=== PATIENT | male | born 1945 | race Caucasian/White ===

== ENCOUNTER → 2017-01-25 | Outpatient (CLI) | payer MEDICARE, OTHER ==
[~2017-01-25] MED LIST: ASP81TEC PO; ATOR20TA66 PO; CATHETER FLUSH 10 ML SYR IV PRN; IOHEXOL 350 MG/ML 150 ML (OMNIPAQUE 350) VIAL IV ONE; MTP25TSR PO; MULT-974 PO; NS 100 ML (IVPB) BAG IV ONE; OMEG-70 PO; ROSU10TA PO
--- OUTSIDE RECORDS SUMMARY | 2017-01-25 08:21 | XMS REPORT | Continuity of Care Document ---
Author Author [facility] Organization [facility] Address Unknown Phone Unavailable Care Team Providers Care Office Machinery Or Equipment Installer Name Role Phone Kailyn Melchor PCP [phone] Source Comments Some departments are not documenting in the electronic medical record. If you do not see the information that you expected, contact Release of Information in the Health Information Management department at [phone] for further assistance in locating additional records.[facility] Active Allergies and Adverse Reactions No Known Allergies Current Medications Prescription Sig. Disp. Refills Start End Date Status Date atorvastatin (LIPITOR) 40 Take 40 mg by mouth at Active mg tablet bedtime daily. metoprolol XL (TOPROL XL) Take 25 mg by mouth Active 25 mg extended release daily. tablet DOCOSAHEXANOIC ACID/EPA Take 1 Tab by mouth at Active (FISH OIL PO) bedtime daily. aspirin 81 mg chewable Take 81 mg by mouth Active tablet daily. Take with food. vitamins, multiple tablet Take 1 Tab by mouth Active daily. oxyCODONE/acetaminophen Take 1-2 Tabs by mouth 20 Tab 0 07/06/20 Active (PERCOCET; ENDOCET; every 4 hours as needed 16 ROXICET) 5/325 mg tablet for Pain Earliest Fill Date: 07/06/16 Use as needed for severe pain hyoscyamine (ANASPAZ; Place 1 Tab under tongue 30 Tab 0 07/06/20 Active NULEV; SYMAX FASTABS; every 4 hours as needed 16 HYOMAX-FT; ED-SPAZ; (bladder spasms). Use as OSCIMIN) 0.125 mg rapid needed for bladder spasms dissolve tablet polymyxin/bacitracin/barron/ Take tube in your room 07/06/20 Active HC (CORTISPORIN) 1 % home with you. Apply to 16 topical ointment tip of penis to keep catheter lubricated Active Problems Problem Noted Date Prostate cancer (HCC) 06/05/2016 Overview: HPI: 70 y.o.M hx of CAD s/p CABG that presents w/ new diagnosis of prostate cancer. Pertinent Prostate Cancer Hx as follows: - PSA 8.0 in March/2016 - PNBx on 04/04/16 demonstrated [place] 3+3 prostate cancer in 3/12 cores (60%, 10%, 5%); Dr. Lu - Bone scan/CT both negative for metastatic disease - No family hx of prostate cancer L ast Assessment & Plan: 70 y.o.M w/ new diagnosis of prostate cancer. I had detailed discussion with the patient today regarding natural history of prostate cancer, parameters in disease considerations. I reviewed the following treatment options: 1. Active surveillance 2. Radical prostatectomy 3. Radiation therapy 4. Cryotherapy 5. Androgen deprivation I discussed the risks, benefits, alternatives, logistics, relative merits, advantages and disadvantages and treatment options with him in detail. The patient has elected to proceed with RALP with BNS on 07/05. Possible risks & complications of surgery including but not limited to bleeding, infection, allergic reaction, heart & blood pressure problems, incontinence, erectile dysfunction, bladder neck contracture, urine leak, lymphocele, hernias, anastomotic breakdown, need for percutaneous nephrostomy tube and/ or abdominal drain placement, wound complications, nerve injury due to positioning, injury to nearby contiguous organs or structures, hernias, robot malfunction, conversion to open surgery, and additional surgical risks include, but not limited to DVT, heart attack, stroke, pulmonary embolism, respiratory arrest, & . Pt demonstrates an understanding & wishes to proceed. Surgical consent signed in clinic today. Pre-op instructions provided to pt & will be addressed by Pre-Anesthesia Clinic. Bowel prep instructions specifically reviewed w/ pt by the nurse, printed & highlighted on AVS. AVS given to pt. Consults: Cardiology All questions answered to his satisfaction. 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" Alcohol Use Drinks/Week oz/Week Comments Yes 1 Cans of 0.6 beer Last Filed Vital Signs Vital Sign Reading Time Taken Blood Pressure 98/50 07/06/2016 11:19 AM CDT Pulse 56 07/06/2016 11:19 AM CDT Temperature 36.5 C (97.7 F) 07/06/2016 11:19 AM CDT Respiratory Rate - - Height 1.753 m (5' 9.02") 07/05/2016 6:00 AM CDT Weight 85.9 kg (189 lb 6 oz) 07/05/2016 6:00 AM CDT Body Mass Index 27.95 07/05/2016 6:00 AM CDT Oxygen Saturation 92% 07/06/2016 11:19 AM CDT Plan of Care Health Maintenance Due Date Last Done Comments Physical (Comprehensive) 1952 Exam Pertussis Vaccine 1955 Tetanus Vaccine 1961 Colorectal Cancer 1994 Screening Shingles Vaccine 2004 Prevnar/Pneumovax (#1) 2009 Influenza Vaccine 07/12/2016 Results from Last 3 Months Not on file
[2017-01-25 08:48] LABS: CREATININE SERUM 1.23 MG/DL (0.60-1.30); POTASSIUM 4.3 MMOL/L (3.6-5.0)
--- NOTE | 2017-01-25 11:41 | Diagnostic Imaging Report ---
EXAM: CT angiogram of the abdomen and pelvis with bilateral lower extremity runoff. Thin axial images are obtained with MIP technique. Coronal reconstructions are performed. 140 mL of Omnipaque 350 was administered intravenously. The patient has history of AAA. COMPARISON: 04/16/2016 is reviewed. CTA ABDOMEN AND PELVIS: The lung bases demonstrate mild areas of scarring. Minimal sludge or small stones layering in the gallbladder seen with no CT evidence of cholecystitis. The liver, the spleen, the pancreas, and adrenal glands appear unremarkable. The kidneys appears symmetric with no hydronephrosis. No para-aortic significantly enlarged lymph nodes are seen. The appendix is normal. There is no bowel obstruction. No significant free fluid or fluid collection in the abdomen or pelvis is seen. CT ANGIOGRAM FINDINGS: There is an infrarenal abdominal aortic aneurysm with maximum caliber of 5.2 cm. This compares to 4.9 cm on the 04/16/2016 exam, mildly enlarged. There is an intramural thrombus with widely patent lumen otherwise. The aneurysm has the extensions into the iliac arteries which measure up to 1.8 cm in the right common iliac and 2 cm on the left common iliac artery. There is ectasia with mild aneurysm in the left internal iliac artery up to 1 cm in size. Similarly, a 1 cm in caliber aneurysm of the right internal iliac artery is seen. The external iliac arteries are tortuous with mild disease and no aneurysm. There is a plaque along the origin of the right renal artery with no high-grade stenosis. The left renal artery is patent. The SMA and the celiac trunk as well as the BHUMIKA are all patent. RIGHT LOWER EXTREMITY RUNOFF: The common femoral artery demonstrates mild disease. The profunda femoris is patent. The SFA is patent with mild disease most prominent distally. The popliteal artery demonstrates mild disease. The anterior tibial artery origin appears to be narrowed with the exact degree of stenosis difficult to estimate on this exam. Otherwise, the anterior tibial artery appears patent to the foot. The tibioperoneal trunk is patent. The posterior tibial artery is patent to the foot The peroneal artery is patent to the ankle. LEFT LOWER EXTREMITY RUNOFF: The RECEIVING AND PROCESSING SUPERVISOR demonstrates mild disease. The profunda femoris is patent. The SFA demonstrates mild disease. The popliteal artery demonstrates mild disease. The anterior tibial artery is patent to the foot. The tibioperoneal trunk is patent. The posterior tibial artery is patent to the foot. The peroneal artery is patent to the ankle. Incidental soft tissue finding in the left calf of a hematoma along the posterior compartment musculature possibly related to plantaris tendon injury. The area of hematoma is 2.8 x 1.2 CM in axial dimension and extends craniocaudally 14 cm. IMPRESSION: 1. AAA measuring 5.2 cm, slightly enlarged compared to 04/16/2016 exam. There is also aneurysmal dilatation of the common iliac and mild aneurysm in the internal iliac arteries bilaterally. 2. Right lower extremity runoff demonstrates patent femoral popliteal segments. There is the suggestion of stenosis at the origin of the right anterior tibial artery, difficult to estimate its degree. 3. Left lower extremity runoff demonstrates mild disease in the femoropopliteal and infrapopliteal segments. Findings were called to Dr. Teran and report faxed to [phone] at 11:42 a.m. 01/25/2017/cb Dictated by: Dictated on workstation # [id number]
== END ==
LOC: RAD 08:17
PROVIDERS: ATTEND Internal Medicine Cardiovascular Disease
DX: I71.4 Abdominal aortic aneurysm, without rupture (principal); I10 Essential (primary) hypertension; I70.202 Unspecified atherosclerosis of native arteries of extremities, left leg
CPT/HCPCS: 36415; 75635; 80048

== ENCOUNTER → 2017-01-31 | Outpatient (CLI) | payer MEDICARE, OTHER ==
[~2017-01-31] MED LIST changes: -CATHETER FLUSH 10 ML SYR IV PRN; -IOHEXOL 350 MG/ML 150 ML (OMNIPAQUE 350) VIAL IV ONE; -NS 100 ML (IVPB) BAG IV ONE
[2017-01-31 07:56] LABS: RED BLOOD COUNT 4.92 10^6/uL (4.35-5.85); RED CELL DISTRIBUTION WIDTH 12.3 % (10.0-14.5)
[2017-01-31 08:16] LABS: BILIRUBIN,URINE NEGATIVE (NEGATIVE); KETONES,URINE NEGATIVE (NEGATIVE); LEUKOCYTE ESTERASE ,URINE NEGATIVE (NEGATIVE); NITRITE,URINE NEGATIVE (NEGATIVE); PH,URINE 5 (5-9); PROTEIN,URINE NEGATIVE (NEGATIVE); UROBILINOGEN,URINE NORMAL (NORMAL)
[2017-01-31 08:20] LABS: ALANINE AMINOTRANSFERASE 21 U/L (0-55); ANION GAP 10 MMOL/L (5-14); ASPARTATE AMINO TRANSFERASE 24 U/L (5-34); BILIRUBIN,TOTAL 1.2 MG/DL (0.1-1.0); BLOOD UREA NITROGEN 12 MG/DL (7-18); BUN/CREATININE RATIO 11; CALCIUM 8.9 MG/DL (8.5-10.1); CARBON DIOXIDE 21 MMOL/L (21-32); CHLORIDE 108 MMOL/L (98-107); CREATININE SERUM 1.13 MG/DL (0.60-1.30); GFR ESTIMATED > 60; GLUCOSE 103 MG/DL (70-105); POTASSIUM 4.2 MMOL/L (3.6-5.0); SODIUM 139 MMOL/L (135-145); TOTAL PROTEIN 6.8 G/DL (6.4-8.2)
--- NOTE | 2017-01-31 11:42 | Diagnostic Imaging Report ---
PA and lateral views of the chest. INDICATION: Preoperative evaluation. FINDINGS: The lungs demonstrate mild chronic-appearing interstitial thickening likely related to scarring. There is no significant consolidation. The heart size is normal. No effusion or pneumothorax. The mediastinum and serjio appear unremarkable. Sternotomy wires and question of an aortic valve replacement is seen. Correlate with surgical history. IMPRESSION: No acute process. Dictated by: Dictated on workstation # [id number]
== END ==
LOC: LAB 07:02
PROVIDERS: ATTEND Thoracic Surgery (Cardiothoracic Vascular Surgery)
DX: Z01.810 Encounter for preprocedural cardiovascular examination (principal); Z01.818 Encounter for other preprocedural examination; I71.4 Abdominal aortic aneurysm, without rupture
CPT/HCPCS: 36415; 71020; 80053; 81000; 85027; 93005

== ENCOUNTER → 2017-03-12 | Outpatient (CLI) | payer MEDICARE, OTHER ==
[~2017-03-12] MED LIST changes: +CATHETER FLUSH 10 ML SYR IV PRN; +IOHEXOL 350 MG/ML 100 ML (OMNIPAQUE 350) VIAL IV ONE
[2017-03-12 08:21] LABS: BLOOD UREA NITROGEN 12 MG/DL (7-18); BUN/CREATININE RATIO 11; GFR ESTIMATED > 60
--- NOTE | 2017-03-12 10:03 | Diagnostic Imaging Report ---
INDICATION: Aortic aneurysm, post operative. The patient also has a history of prostate cancer. COMPARISON: 01/25/2017. TECHNIQUE: The pre and post IV contrast-enhanced CT angio abdomen was performed with multiplanar reconstructions. FINDINGS: A stent is placed in the upper abdominal aorta. Its superior margin is just below the takeoff of the patent celiac and extends below the takeoffs of the patent bilateral renal arteries. The SMA is widely patent. Below the level of the stent, there appears to be grafting of the abdominal aorta to the level of bilateral common iliac stents which extend into the upper pelvis to the distal common iliacs. The stents show no evidence for obstruction or endoleak. The aortic aneurysmal sac below the level of the lower pole of the kidneys measures a diameter of 5.1 cm today, previously 5.2 cm. No perianeurysmal hemorrhage. The 2 cm left common iliac and 1.9 cm right common iliac are stable in caliber. The visualized portions of the bilateral external iliacs are patent and opacified. There are no findings of end organ ischemia. No hemorrhage. There are tiny stones layering within the dependent gallbladder. The liver, spleen, adrenals, and pancreas are all negative. The unobstructed kidneys are well-perfused and appear normal. There is no ascites, abscess, hematoma, or other fluid collection. No acute or suspicious osseous abnormality. Chronic interstitial changes in the lung bases are present. No acute basilar infiltrate or basilar pleural fluid. IMPRESSION: Slight reduction in the aneurysmal caliber. No rupture or acute pathology. Interval stenting of the upper abdominal aorta with grafting at its mid segment and iliac stenting below. No findings of end organ ischemia. No obstructive phenomena or acute pathology. No adverse development from the prior exam. Cholelithiasis is noted incidentally. Dictated by: Dictated on workstation # [id number]
== END ==
LOC: RAD 07:52
PROVIDERS: ATTEND Nurse Practitioner
DX: I71.4 Abdominal aortic aneurysm, without rupture (principal); Z95.828 Presence of other vascular implants and grafts; K80.20 Calculus of gallbladder without cholecystitis without obstruction
CPT/HCPCS: 36415; 74174; 82565; 84520

== ENCOUNTER → 2018-09-16 | Outpatient (CLI) | payer MEDICARE, OTHER ==
[~2018-09-16] MED LIST changes: -CATHETER FLUSH 10 ML SYR IV PRN; -IOHEXOL 350 MG/ML 100 ML (OMNIPAQUE 350) VIAL IV ONE
[2018-09-16 08:32] LABS: ALBUMIN 4.2 GM/DL (3.2-4.5); BUN/CREATININE RATIO 10; CALCIUM 9.4 MG/DL (8.5-10.1); CARBON DIOXIDE 21 MMOL/L (21-32); CHLORIDE 107 MMOL/L (98-107); CREATININE SERUM 0.98 MG/DL (0.60-1.30); GFR ESTIMATED > 60; GLUCOSE 99 MG/DL (70-105); PHOSPHORUS 2.5 MG/DL (2.3-4.7); POTASSIUM 4.1 MMOL/L (3.6-5.0); SODIUM 139 MMOL/L (135-145)
== END ==
LOC: LAB 08:04
PROVIDERS: ATTEND Thoracic Surgery (Cardiothoracic Vascular Surgery)
DX: I71.4 Abdominal aortic aneurysm, without rupture (principal)
CPT/HCPCS: 36415; 80069

== ENCOUNTER → 2018-09-17 | Outpatient (CLI) | payer MEDICARE, OTHER ==
[~2018-09-17] MED LIST changes: +RECEIVED CONTRAST (Hold Metformin) IV SCH
[2018-09-17] MEDS: IOHEXOL 350 MG/ML 100 ML (OMNIPAQUE 350) VIAL IV ONE (08:24)
[2018-09-17] MEDS: NS 250 ML (IVPB) BAG IV ONE (08:24)
--- NOTE | 2018-09-17 10:22 | Diagnostic Imaging Report ---
PROCEDURE: CT angiography of the abdomen with and without contrast. TECHNIQUE: Multiple contiguous axial images were obtained through the abdomen and pelvis after administration of intravenous contrast. MIP reconstructions were made. INDICATION: Abdominal aortic aneurysm. COMPARISON STUDY: CT scan from 09/16/2017. FINDINGS: The examination demonstrates an abdominal aortic aneurysm stent graft remains in place. There is good apposition proximally and distally with suprarenal fixation. No endovascular leaks are present. No stenosis of the iliac vessels is present. The incision sites appear normal. Takeoff of the celiac axis and this may appear normal. Mild plaque is present in the renal arteries with no significant. Stenosis. The lung bases are clear. Small gallstones are again identified. No ductal dilatation is seen. The liver, spleen pancreas adrenal glands and kidneys appear normal. There is normal appearance of the appendix. No inflammatory change is seen in the bowel. Some diverticula are present in the colon. Urinary bladder is normal. No hernia is present. Osseous structures demonstrate minimal degenerative changes. IMPRESSION: 1. Decreased size of the abdominal aortic aneurysm sac. No endovascular leaks are present. 2. Cholelithiasis. Dictated by: Dictated on workstation # [id number]
== END ==
LOC: RAD 07:42
PROVIDERS: ATTEND Nurse Practitioner
DX: I71.4 Abdominal aortic aneurysm, without rupture (principal); K80.20 Calculus of gallbladder without cholecystitis without obstruction
CPT/HCPCS: 74175

== ENCOUNTER → 2019-01-13 | Outpatient (CLI) | payer MEDICARE, OTHER ==
[~2019-01-13] MED LIST changes: +CATHETER FLUSH 10 ML SYR IV PRN; -RECEIVED CONTRAST (Hold Metformin) IV SCH; +REGADENOSON 0.4 MG/5 ML SYR (LEXISCAN) IV ONE; -ROSU10TA PO; +ROSU10TA22 PO
[2019-01-13 08:54] VITALS: BP 128/69
[2019-01-13 09:16] VITALS: BP 112/59
--- NOTE | 2019-01-13 23:16 | STRESS TEST ---
DATE OF SERVICE: 01/13/2019 RESTING AND POST REGADENOSON TECHNETIUM-99M TETROFOSMIN SPECT CT IMAGING ORDERING PHYSICIAN: Marline Dunbar APRN PRIMARY PHYSICIAN: Dr. Melchor. CLINICAL DIAGNOSIS: Coronary artery disease. Baseline images were carried out after injection of 10.45 mCi technetium-99m Tetrofosmin. This was followed by 0.4 regular mm regadenoson and 30.8 mCi of technetium-99m Tetrofosmin for stress imaging. The electrocardiogram showed sinus rhythm at baseline and did not change significantly with the regadenoson infusion. The patient noted some shortness of breath following regadenoson infusion, which resolved in a few minutes. Review of images at rest and following stress indicates an inferior perfusion defect that appears predominantly transient. Gated images show normal global left ventricular systolic function with normal regional wall motion. Left ventricular ejection fraction is calculated to be 66%. Left ventricular end diastolic volume is 60 mL. TID is absent (1.07). CONCLUSIONS: 1. This study is indicative of a small to moderate amount of inferior ischemia. 2. Normal regional wall motion. 3. Normal global left ventricular systolic function with a calculated ejection fraction of 66%. Job ID: [id number] DocumentID: [id number] Dictated Date: 01/13/2019 17:33:41 Converting Supervisor Date: 01/13/2019 23:15:48 Dictated By: KEVIN DO MD, MA, FACP, FACC,
== END ==
LOC: CARD 07:00
PROVIDERS: ATTEND Nurse Practitioner Family
DX: I25.10 Atherosclerotic heart disease of native coronary artery without angina pectoris (principal); I10 Essential (primary) hypertension; I34.0 Nonrheumatic mitral (valve) insufficiency
CPT/HCPCS: 78452; 93017

== ENCOUNTER 2019-01-20 09:47 | Day surgery (SDC) | payer MEDICARE, OTHER ==
[2019-01-20] VITALS (10 sets, daily range): BP systolic 116–136; BP diastolic 64–91
[~2019-01-20] VITALS: Ht 177.8 cm; Wt 88.5 kg
[~2019-01-20 09:47] MED LIST changes: -CATHETER FLUSH 10 ML SYR IV PRN; -REGADENOSON 0.4 MG/5 ML SYR (LEXISCAN) IV ONE
--- OUTSIDE RECORDS SUMMARY | 2019-01-20 09:50 | XMS REPORT | Clinical Summary ---
Author Author [facility] Organization [facility] Address Unknown Phone Unavailable Care Team Providers Care Horticulture Worker Name Role Phone Coleman Wood MD Unavailable Eugene Guerrero MD Unavailable Ewa Melchor MD PCP Source Comments Some departments are not documenting in the electronic medical record. If you do not see the information that you expected, contact Release of Information in the Health Information Management department at [phone] for further assistance in locating additional records.[facility] Allergies No Known Allergies Medications End Date Status Medication Sig Dispensed Refills Start Date Active atorvastatin (LIPITOR) 40 Take 40 mg by 0 mg tablet mouth at bedtime daily. Active metoprolol XL (TOPROL XL) Take 25 mg by 0 25 mg extended release mouth daily. tablet Active DOCOSAHEXANOIC ACID/EPA Take 1 Tab by 0 (FISH OIL PO) mouth at bedtime daily. Active aspirin 81 mg chewable Take 81 mg by 0 tablet mouth daily. Take with food. Active vitamins, multiple tablet Take 1 Tab by 0 mouth daily. Active oxyCODONE/acetaminophen Take 1-2 Tabs 20 Tab 0 (PERCOCET; ENDOCET; by mouth 6 ROXICET) 5/325 mg tablet every 4 hours as needed for Pain Earliest Fill Date: 07/06/16 Use as needed for severe pain Active hyoscyamine (ANASPAZ; Place 1 Tab 30 Tab 0 NULEV; SYMAX FASTABS; under tongue 6 HYOMAX-FT; ED-SPAZ; every 4 hours OSCIMIN) 0.125 mg rapid as needed dissolve tablet (bladder spasms). Use as needed for bladder spasms Active polymyxin/bacitracin/barron/ Take tube in 0 HC (CORTISPORIN) 1 % your room 6 topical ointment home with you. Apply to tip of penis to keep catheter lubricated Active Problems Problem Noted Date Prostate cancer 06/05/2016 Overview: HPI: 70 y.o.M hx of CAD s/p CABG that presents w/ new diagnosis of prostate cancer. Pertinent Prostate Cancer Hx as follows: - PSA 8.0 in March/2016 - PNBx on 04/04/16 demonstrated [place] 3+3 prostate cancer in 3/12 cores (60%, [...] Cardiology All questions answered to his satisfaction. 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 Last Filed Vital Signs Time Taken Vital Sign Reading 07/06/2016 11:19 AM CDT Blood Pressure 98/50 07/06/2016 11:19 AM CDT Pulse 56 07/06/2016 11:19 AM CDT Temperature 36.5 C (97.7 F) - Respiratory Rate - 07/06/2016 11:19 AM CDT Oxygen Saturation 92% - Inhaled Oxygen - Concentration 07/05/2016 6:00 AM CDT Weight 85.9 kg (189 lb 6 oz) 07/05/2016 6:00 AM CDT Height 175.3 cm (5' 9.02") 07/05/2016 6:00 AM CDT Body Mass Index 27.95 Plan of Treatment Health Maintenance Due Date Last Done Comments PHYSICAL (COMPREHENSIVE) 1952 EXAM DTAP/TDAP VACCINES (1 - 1962 Tdap) COLORECTAL CANCER 1994 SCREENING SHINGLES RECOMBINANT 1994 VACCINE (1 of 2) ABDOMINAL AORTIC ANEURYSM 2009 SCREENING PNEUMONIA (PCV13/PPSV23) 2009 VACCINES (1 of 2 - PCV13) INFLUENZA VACCINE 06/11/2018 Results Not on filefrom Last 3 Months Insurance Payer Benefit Subscriber ID Type Phone Address Plan / Group MEDICARE MEDICARE xxxxxxxxxx Medicare PART A AND B GENERIC COMMERCIAL GENERIC xxxxxx Indemnity COMMERCIAL Advance Directives Patient has advance care planning documents, and code status on file. For more information, please contact: [facility] [address] [place] [address] Date Inactivated Comments Code Status Date Activated 07/06/2016 3:09 PM Full Code 07/05/2016 1:15 PM Provider has discussed Code Status No, discussion not w/Patient or Family? necessary based on Dx
--- OUTSIDE RECORDS SUMMARY | 2019-01-20 09:52 | XMS REPORT | CCD ---
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 Name Role Phone PP Unavailable CCM Unavailable Summary Purpose Interface Exchange Insurance Providers Payer name Policy type / Coverage type Covered alliance party ID Effective Begin Date Effective End Date WPS Medicare Part B Medicare Part B [id number] Unknown [employer] Medicare Part B [id number] Unknown Family history Son Diagnosis Age At Onset Asthma Unknown Grandfather Diagnosis Age At Onset Heart Attack Unknown Mother Diagnosis Age At Onset Cancer Unknown Ovarian cancer Unknown Father Diagnosis Age At Onset Colon cancer Unknown Social History Social History Element Codes Description Effective Dates Tobacco history SNOMED CT: 1170372 Quit less than 5 years ago Quit 07/07/2013 - his smoking history is pipe and cigars - he smoked for about 40 years 03/05/2018 Marital status Unknown Harlana Santana 07/26/2015 Alcohol history Unknown occasionally drinks alcohol one drink weekly 07/26/2015 Allergies, Adverse Reactions, Alerts Substance Reaction Codes Entered Date Inactivated Date Status * NO KNOWN DRUG ALLERGIES Unknown 07/26/2015 No Inactive Date Active Past Medical History Illness Codes Condition Status Onset Date Resolved Date Encounter for general adult medical examination with abnormal findings ICD-9: V70.0 ICD-10: Z00.01 Active 10/15/2017 Unknown Changes in skin texture ICD-9: 782.8 ICD-10: R23.4 Active 09/04/2018 Unknown Essential (primary) hypertension ICD-9: 401.9 ICD-10: I10 Active 07/25/2015 Unknown Mixed hyperlipidemia ICD-9: 272.4 ICD-10: E78.2 Active 07/25/2015 Unknown 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, 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 ICD-10: C44.692 Active 03/05/2018 Unknown Encounter for immunization ICD-9: V04.81 ICD-10: Z23 Active 08/01/2016 Unknown Encounter for general adult medical examination without abnormal findings ICD-9: V70.9 ICD-10: Z00.00 Active 10/08/2016 Unknown Hyperlipidemia Unknown Active 07/26/2015 Unknown Hypertension Unknown Active 07/26/2015 Unknown ESSENTIAL HYPERTENSION ICD-9: 401.9 Active 07/25/2015 Unknown HYPERLIPIDEMIA ICD-9: 272.4 Active 07/25/2015 Unknown NOCTURIA ICD-9: 788.43 Active 07/25/2015 Unknown Problems Condition Codes Effective Dates Condition Status Encounter for general adult medical examination with abnormal findings ICD-9: V70.0 ICD-10: Z00.01 10/15/2017 Active Changes in skin texture ICD-9: 782.8 ICD-10: R23.4 09/04/2018 Active Essential (primary) hypertension ICD-9: 401.9 ICD-10: I10 07/25/2015 Active Mixed hyperlipidemia ICD-9: 272.4 ICD-10: E78.2 07/25/2015 Active 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, 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 ICD-10: C44.692 03/05/2018 Active Encounter for immunization ICD-9: V04.81 ICD-10: Z23 08/01/2016 Active Encounter for general adult medical examination without abnormal findings ICD-9: V70.9 ICD-10: Z00.00 10/08/2016 Active Hyperlipidemia Unknown 07/26/2015 Active Hypertension Unknown 07/26/2015 Active ESSENTIAL HYPERTENSION ICD-9: 401.9 07/25/2015 Active HYPERLIPIDEMIA ICD-9: 272.4 07/25/2015 Active NOCTURIA ICD-9: 788.43 07/25/2015 Active Medications Medication Codes Instructions Start Date Stop Date Status Fill Instructions metoprolol succinate ER 25 mg tablet,extended release 24 hr RxNorm: 646088 TAKE 1 TABLET EVERY DAY 12/19/2018 12/13/2019 Active atorvastatin 40 mg tablet RxNorm: 139988 TAKE 1 TABLET EVERY DAY 12/19/2018 12/13/2019 Active metoprolol succinate ER 25 mg tablet,extended release 24 hr RxNorm: 115170 TAKE 1 TABLET EVERY DAY 05/09/2018 12/18/2018 Inactive atorvastatin 40 mg tablet RxNorm: 076938 TAKE 1 TABLET EVERY DAY 03/14/2018 12/18/2018 Inactive atorvastatin 40 mg tablet RxNorm: 066262 TAKE 1 TABLET EVERY DAY 03/21/2017 03/13/2018 Inactive metoprolol succinate ER 25 mg tablet,extended release 24 hr RxNorm: 843319 1 Tablet(s) PO daily 03/21/2017 03/15/2018 Inactive metoprolol succinate ER 25 mg tablet,extended release 24 hr RxNorm: 007259 1 Tablet(s) PO daily 04/10/2016 04/03/2017 Inactive metoprolol succinate ER 25 mg tablet,extended release 24 hr RxNorm: 790530 1 Tablet(s) PO daily 01/20/2016 04/09/2016 Inactive atorvastatin 40 mg tablet RxNorm: 258553 1 Tablet(s) PO daily 01/20/2016 03/20/2017 Inactive atorvastatin 40 mg tablet RxNorm: 398086 1 Tablet(s) PO daily 01/20/2016 03/04/2018 Inactive atorvastatin 40 mg tablet RxNorm: 245743 1 Tablet(s) PO daily 01/20/2016 03/04/2018 Inactive metoprolol succinate ER 25 mg tablet,extended release 24 hr RxNorm: 097239 1 Tablet(s) PO daily 07/26/2015 01/19/2016 Inactive multivitamin tablet RxNorm: 1 Tablet(s) PO daily No Start Date Active aspirin 81 mg tablet RxNorm: 982355 1 Tablet(s) PO daily No Start Date Active Fish Oil 900 mg (253 mg-647 mg) capsule,delayed release RxNorm: 2 Capsule(s) PO daily No Start Date Active atorvastatin 40 mg tablet RxNorm: 787781 1 Tablet(s) PO daily No Start Date 01/19/2016 Inactive Medication Administered No Medication Administered data Immunizations Vaccine Codes Date Status Influenza CVX: 141 09/04/2018 completed Influenza CVX: 141 08/26/2017 completed Influenza CVX: 141 08/02/2016 completed Assessments Condition Codes Effective Dates Encounter for general adult medical examination with abnormal findings ICD-10: Z00.01 ICD-9: V70.0 10/17/2018 Changes in skin texture ICD-10: R23.4 ICD-9: 782.8 09/04/2018 Mixed hyperlipidemia ICD-10: E78.2 ICD-9: 272.4 09/04/2018 Essential (primary) hypertension ICD-10: I10 ICD-9: 401.9 09/04/2018 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, including shoulder ICD-10: C44.692 ICD-9: 173.69 03/05/2018 Encounter for immunization ICD-10: Z23 ICD-9: V04.81 08/26/2017 Encounter for general adult medical examination without abnormal findings ICD-10: Z00.00 ICD-9: V70.9 10/09/2016 NOCTURIA ICD-9: 788.43 07/26/2015 HYPERLIPIDEMIA ICD-9: 272.4 07/26/2015 ESSENTIAL HYPERTENSION ICD-9: 401.9 07/26 Reason For Visit Reason For Visit Effective Dates Notes Annual Medicare Wellness Exam 10/17/2018 hypertension 09/04/2018 hypertension 03/05/2018 Annual Medicare Wellness Exam 10/15/2017 hypertension 08/26/2017 Hospital Follow Up 02/19/2017 Annual Medicare Wellness Exam 10/09/2016 hypertension 08/02/2016 hypertension 01/26/2016 nocturia 07/26/2015 Results Observation Observation Code Item Item Code Result Date Tsh Ord6 TSH (3rd IS) 1.12 uIU/mL 03/05/2018 Lipid Ord30 CHOL 128 mg/dL 03/05/2018 Lipid Ord30 HDL 38.0 mg/dl 03/05/2018 Lipid Ord30 TRIG 99 mg/dL 03/05/2018 Lipid Ord30 LDL 70 mg/dL 03/05/2018 Lipid Ord30 C/HDL 3.4 Ratio 03/05/2018 Comp Metabolic Tmu855 NA 137 mEq/L 03/05/2018 Comp Metabolic Qnl129 K 4.1 mEq/L 03/05/2018 Comp Metabolic Mjh618 CL 100 mEq/L 03/05/2018 Comp Metabolic Bma040 CO2 31.0 mEq/L 03/05/2018 Comp Metabolic Wai084 ANION GAP 10 03/05/2018 Comp Metabolic Gtf628 GLUCOSE 90 mg/dL 03/05/2018 Comp Metabolic Vet077 Creat 1.0 mg/dL 03/05/2018 Comp Metabolic Mka744 eGFR 75 ml/min/1.73m2 03/05/2018 Comp Metabolic Cvi452 BUN 14 mg/dL 03/05/2018 Comp Metabolic Qwy178 B/C Ratio 13.6 Ratio 03/05/2018 Comp Metabolic Rna233 CALCIUM 8.9 mg/dL 03/05/2018 Comp Metabolic Ijm889 ALK PHOS 71 U/L 03/05/2018 Comp Metabolic Gsw582 AST(SGOT) 21 U/L 03/05/2018 Comp Metabolic Kkt271 ALT(SGPT) 17 U/L 03/05/2018 Comp Metabolic Yso053 BILI T 1.7 mg/dL 03/05/2018 Comp Metabolic Tem399 ALBUMIN 4.2 g/dL 03/05/2018 Comp Metabolic Zkx948 TPRO 6.6 g/dL 03/05/2018 Comp Metabolic Pof775 GLOB 2.4 g/dL 03/05/2018 Comp Metabolic Buk137 A/G Ratio 1.8 Ratio 03/05/2018 Comp Metabolic Uzz211 Osmo 274 mOsmo 03/05/2018 Cbc With Differential Ord2 WBC 7.04 K/ul 03/05/2018 Cbc With Differential Ord2 RBC 4.91 M/ul 03/05/2018 Cbc With Differential Ord2 HGB 14.5 g/dl 03/05/2018 Cbc With Differential Ord2 Neut% 54.1 % 03/05/2018 Cbc With Differential Ord2 HCT 44.0 % 03/05/2018 Cbc With Differential Ord2 MCV 89.6 fl 03/05/2018 Cbc With Differential Ord2 Lymph% 31.1 % 03/05/2018 Cbc With Differential Ord2 [place]% 12.1 % 03/05/2018 Cbc With Differential Ord2 MCH 29.5 pg 03/05/2018 Cbc With Differential Ord2 Eos% 2.3 % 03/05/2018 Cbc With Differential Ord2 MCHC 33.0 pg 03/05/2018 Cbc With Differential Ord2 PLT 232 K/ul 03/05/2018 Cbc With Differential Ord2 Baso% 0.4 % 03/05/2018 Cbc With Differential Ord2 Neut ABS# 3.81 K/ul 03/05/2018 Cbc With Differential Ord2 RDW 12.7 % 03/05/2018 Cbc With Differential Ord2 Lymph ABS# 2.19 K/ul 03/05/2018 Cbc With Differential Ord2 [place] ABS# 0.9 K/ul 03/05/2018 Cbc With Differential Ord2 Eos ABS# 0.2 K/ul 03/05/2018 Cbc With Differential Ord2 Baso ABS# 0.0 K/ul 03/05/2018 Tsh Ord6 hTSH II 2.01 uIU/mL 08/26/2017 Comp Metabolic Gfc331 NA 141 mEq/L 08/26/2017 Comp Metabolic Yzy321 K 4.4 mEq/L 08/26/2017 Comp Metabolic Euw772 CL 103 mEq/L 08/26/2017 Comp Metabolic Qsl797 CO2 30.0 mEq/L 08/26/2017 Comp Metabolic Yrx793 ANION GAP 12 08/26/2017 Comp Metabolic Ryo385 GLUCOSE 100 mg/dL 08/26/2017 Comp Metabolic Jlb181 Creat 1.0 mg/dL 08/26/2017 Comp Metabolic Bdf048 eGFR 76 ml/min/1.73m2 08/26/2017 Comp Metabolic Kvr801 BUN 12 mg/dL 08/26/2017 Comp Metabolic Pwt241 B/C Ratio 11.8 Ratio 08/26/2017 Comp Metabolic Qzg301 CALCIUM 9.5 mg/dL 08/26/2017 Comp Metabolic Tcp163 ALK PHOS 75 U/L 08/26/2017 Comp Metabolic Zzi173 AST(SGOT) 19 U/L 08/26/2017 Comp Metabolic Xjp422 ALT(SGPT) 17 U/L 08/26/2017 Comp Metabolic Tpc322 BILI T 1.3 mg/dL 08/26/2017 Comp Metabolic Otu067 ALBUMIN 4.4 g/dL 08/26/2017 Comp Metabolic Mzi288 TPRO 6.9 g/dL 08/26/2017 Comp Metabolic Yqc277 GLOB 2.5 g/dL 08/26/2017 Comp Metabolic Vqw934 A/G Ratio 1.8 Ratio 08/26/2017 Comp Metabolic Vdz890 Osmo 281 mOsmo 08/26/2017 Cbc With Differential Ord2 WBC 7.40 K/ul 08/26/2017 Cbc With Differential Ord2 RBC 4.95 M/ul 08/26/2017 Cbc With Differential Ord2 HGB 14.8 g/dl 08/26/2017 Cbc With Differential Ord2 HCT 44.5 % 08/26/2017 Cbc With Differential Ord2 Neut% 58.1 % 08/26/2017 Cbc With Differential Ord2 Lymph% 29.2 % 08/26/2017 Cbc With Differential Ord2 MCV 89.9 fl 08/26/2017 Cbc With Differential Ord2 MCH 29.9 pg 08/26/2017 Cbc With Differential Ord2 [place]% 10.4 % 08/26/2017 Cbc With Differential Ord2 Eos% 2.0 % 08/26/2017 Cbc With Differential Ord2 MCHC 33.3 pg 08/26/2017 Cbc With Differential Ord2 PLT 237 K/ul 08/26/2017 Cbc With Differential Ord2 Baso% 0.3 % 08/26/2017 Cbc With Differential Ord2 Neut ABS# 4.30 K/ul 08/26/2017 Cbc With Differential Ord2 RDW 12.5 % 08/26/2017 Cbc With Differential Ord2 Lymph ABS# 2.16 K/ul 08/26/2017 Cbc With Differential Ord2 [place] ABS# 0.8 K/ul 08/26/2017 Cbc With Differential Ord2 Eos ABS# 0.2 K/ul 08/26/2017 Cbc With Differential Ord2 Baso ABS# 0.0 K/ul 08/26/2017 Lipid Ord30 CHOL 139 mg/dL 08/26/2017 Lipid Ord30 HDL 37.0 mg/dl 08/26/2017 Lipid Ord30 TRIG 194 mg/dL 08/26/2017 Lipid Ord30 LDL 63 mg/dL 08/26/2017 Lipid Ord30 C/HDL 3.8 Ratio 08/26/2017 Cbc With Differential Ord2 WBC 6.84 K/ul 08/02/2016 Cbc With Differential Ord2 RBC 4.58 M/ul 08/02/2016 Cbc With Differential Ord2 HGB 13.6 g/dl 08/02/2016 Cbc With Differential Ord2 Neut% 49.8 % 08/02/2016 Cbc With Differential Ord2 HCT 41.3 % 08/02/2016 Cbc With Differential Ord2 MCV 90.2 fl 08/02/2016 Cbc With Differential Ord2 Lymph% 34.8 % 08/02/2016 Cbc With Differential Ord2 [place]% 11.0 % 08/02/2016 Cbc With Differential Ord2 MCH 29.7 pg 08/02/2016 Cbc With Differential Ord2 Eos% 4.1 % 08/02/2016 Cbc With Differential Ord2 MCHC 32.9 pg 08/02/2016 Cbc With Differential Ord2 PLT 224 K/ul 08/02/2016 Cbc With Differential Ord2 Baso% 0.3 % 08/02/2016 Cbc With Differential Ord2 Neut ABS# 3.41 K/ul 08/02/2016 Cbc With Differential Ord2 RDW 12.8 % 08/02/2016 Cbc With Differential Ord2 Lymph ABS# 2.38 K/ul 08/02/2016 Cbc With Differential Ord2 [place] ABS# 0.8 K/ul 08/02/2016 Cbc With Differential Ord2 Eos ABS# 0.3 K/ul 08/02/2016 Cbc With Differential Ord2 Baso ABS# 0.0 K/ul 08/02/2016 Tsh Ord6 hTSH II 1.20 uIU/mL 08/02/2016 Comp Metabolic Nlb413 NA 138 mEq/L 08/02/2016 Comp Metabolic Htc313 K 4.6 mEq/L 08/02/2016 Comp Metabolic Tfy059 CL 104 mEq/L 08/02/2016 Comp Metabolic Kvm331 CO2 29.0 mEq/L 08/02/2016 Comp Metabolic Uhu493 ANION GAP 10 08/02/2016 Comp Metabolic Rkm297 GLUCOSE 99 mg/dL 08/02/2016 Comp Metabolic Xch822 Creat 1.1 mg/dL 08/02/2016 Comp Metabolic Qvm586 eGFR 73 ml/min/1.73m2 08/02/2016 Comp Metabolic Oma134 BUN 18 mg/dL 08/02/2016 Comp Metabolic Evv460 B/C Ratio 17.0 Ratio 08/02/2016 Comp Metabolic Xwf509 CALCIUM 9.4 mg/dL 08/02/2016 Comp Metabolic Vhv667 ALK PHOS 71 U/L 08/02/2016 Comp Metabolic Jbr999 AST(SGOT) 19 U/L 08/02/2016 Comp Metabolic Cyn563 ALT(SGPT) 16 U/L 08/02/2016 Comp Metabolic Kuy929 BILI T 1.5 mg/dL 08/02/2016 Comp Metabolic Ykd676 ALBUMIN 4.3 g/dL 08/02/2016 Comp Metabolic Ieo985 TPRO 6.9 g/dL 08/02/2016 Comp Metabolic Miw386 GLOB 2.6 g/dL 08/02/2016 Comp Metabolic Lzf938 A/G Ratio 1.7 Ratio 08/02/2016 Comp Metabolic Pso980 Osmo 278 mOsmo 08/02/2016 Lipid Ord30 CHOL 126 mg/dL 08/02/2016 Lipid Ord30 HDL 32.0 mg/dl 08/02/2016 Lipid Ord30 TRIG 161 mg/dL 08/02/2016 Lipid Ord30 LDL 62 mg/dL 08/02/2016 Lipid Ord30 C/HDL 3.9 Ratio 08/02/2016 Comp Metabolic Ptj396 NA 137 mEq/L 01/27/2016 Comp Metabolic Dlj690 K 4.1 mEq/L 01/27/2016 Comp Metabolic Tog543 CL 99 mEq/L 01/27/2016 Comp Metabolic Uqp285 CO2 32.0 mEq/L 01/27/2016 Comp Metabolic Myg137 ANION GAP 10 01/27/2016 Comp Metabolic Bvn244 GLUCOSE 92 mg/dL 01/27/2016 Comp Metabolic Qmk744 Creat 1.1 mg/dL 01/27/2016 Comp Metabolic Gcs087 eGFR 72 ml/min/1.73m2 01/27/2016 Comp Metabolic Aru632 BUN 16 mg/dL 01/27/2016 Comp Metabolic Juj351 B/C Ratio 15.0 Ratio 01/27/2016 Comp Metabolic Inj904 CALCIUM 9.6 mg/dL 01/27/2016 Comp Metabolic Gyk919 ALK PHOS 82 U/L 01/27/2016 Comp Metabolic Rjf002 AST(SGOT) 21 U/L 01/27/2016 Comp Metabolic Apt947 ALT(SGPT) 20 U/L 01/27/2016 Comp Metabolic Gcq732 BILI T 1.8 mg/dL 01/27/2016 Comp Metabolic Hhj699 ALBUMIN 4.3 g/dL 01/27/2016 Comp Metabolic Qrw413 TPRO 6.8 g/dL 01/27/2016 Comp Metabolic Vlq806 GLOB 2.5 g/dL 01/27/2016 Comp Metabolic Lyt446 A/G Ratio 1.8 Ratio 01/27/2016 Comp Metabolic Jvv674 Osmo 275 mOsmo 01/27/2016 Tsh Ord6 hTSH II 2.19 uIU/mL 01/27/2016 Lipid Ord30 CHOL 119 mg/dL 01/27/2016 Lipid Ord30 HDL 34.0 mg/dl 01/27/2016 Lipid Ord30 TRIG 194 mg/dL 01/27/2016 Lipid Ord30 LDL 46 mg/dL 01/27/2016 Lipid Ord30 C/HDL 3.5 Ratio 01/27/2016 Cbc With Differential Ord2 WBC 6.56 K/ul 01/27/2016 Cbc With Differential Ord2 RBC 4.78 M/ul 01/27/2016 Cbc With Differential Ord2 HGB 14.0 g/dl 01/27/2016 Cbc With Differential Ord2 HCT 42.6 % 01/27/2016 Cbc With Differential Ord2 Neut% 52.1 % 01/27/2016 Cbc With Differential Ord2 MCV 89.1 fl 01/27/2016 Cbc With Differential Ord2 Lymph% 32.6 % 01/27/2016 Cbc With Differential Ord2 MCH 29.3 pg 01/27/2016 Cbc With Differential Ord2 [place]% 11.1 % 01/27/2016 Cbc With Differential Ord2 MCHC 32.9 pg 01/27/2016 Cbc With Differential Ord2 Eos% 3.7 % 01/27/2016 Cbc With Differential Ord2 Baso% 0.5 % 01/27/2016 Cbc With Differential Ord2 PLT 247 K/ul 01/27/2016 Cbc With Differential Ord2 Neut ABS# 3.42 K/ul 01/27/2016 Cbc With Differential Ord2 RDW 12.8 % 01/27/2016 Cbc With Differential Ord2 Lymph ABS# 2.14 K/ul 01/27/2016 Cbc With Differential Ord2 [place] ABS# 0.7 K/ul 01/27/2016 Cbc With Differential Ord2 Eos ABS# 0.2 K/ul 01/27/2016 Cbc With Differential Ord2 Baso ABS# 0.0 K/ul 01/27/2016 Cbc With Differential Ord2 New Analyzer Notice Please note new ref ranges starting 11-23-2015 due to implemntation of new five part differential hematolgy analyzer. 01/27/2016 Tsh Ord6 hTSH II 1.03 uIU/mL 07/26/2015 Lipid Ord30 CHOL 118 mg/dL 07/26/2015 Lipid Ord30 HDL 34.0 mg/dl 07/26/2015 Lipid Ord30 TRIG 136 mg/dL 07/26/2015 Lipid Ord30 LDL 57 mg/dL 07/26/2015 Lipid Ord30 C/HDL 3.5 Ratio 07/26/2015 Comp Metabolic Xwu357 NA 135 mEq/L 07/26/2015 Comp Metabolic Azm136 K 4.3 mEq/L 07/26/2015 Comp Metabolic Yvd560 CL 101 mEq/L 07/26/2015 Comp Metabolic Gzj941 CO2 31.0 mEq/L 07/26/2015 Comp Metabolic Mgv735 ANION GAP 7 07/26/2015 Comp Metabolic Xkz925 GLUCOSE 96 mg/dL 07/26/2015 Comp Metabolic Mgo762 Creat 1.0 mg/dL 07/26/2015 Comp Metabolic Qez311 eGFR 76 ml/min/1.73m2 07/26/2015 Comp Metabolic Dcx325 BUN 14 mg/dL 07/26/2015 Comp Metabolic Xme587 B/C Ratio 13.6 Ratio 07/26/2015 Comp Metabolic Zek458 CALCIUM 9.3 mg/dL 07/26/2015 Comp Metabolic Emz112 ALK PHOS 77 U/L 07/26/2015 Comp Metabolic Vzf351 AST(SGOT) 22 U/L 07/26/2015 Comp Metabolic Syg363 ALT(SGPT) 19 U/L 07/26/2015 Comp Metabolic Oqw106 BILI T 1.7 mg/dL 07/26/2015 Comp Metabolic Rrb167 ALBUMIN 4.2 g/dL 07/26/2015 Comp Metabolic Skm878 TPRO 6.6 g/dL 07/26/2015 Comp Metabolic Sch597 GLOB 2.4 g/dL 07/26/2015 Comp Metabolic Kpv270 A/G Ratio 1.8 Ratio 07/26/2015 Comp Metabolic Aow809 Osmo 270 mOsmo 07/26/2015 Cbc With Differential Ord2 WBC 6.4 K/uL 07/26/2015 Cbc With Differential Ord2 LYM 1.8 K/uL 07/26/2015 Cbc With Differential Ord2 LYM% 28.8 % 07/26/2015 Cbc With Differential Ord2 NEUT/GRAN 4.1 K/uL 07/26/2015 Cbc With Differential Ord2 NEUT/GRAN % 63.3 % 07/26/2015 Cbc With Differential Ord2 MID 0.5 K/uL 07/26/2015 Cbc With Differential Ord2 MID% 7.9 % 07/26/2015 Cbc With Differential Ord2 RBC 4.68 M/uL 07/26/2015 Cbc With Differential Ord2 HGB 14.0 g/dL 07/26/2015 Cbc With Differential Ord2 HCT 41.3 % 07/26/2015 Cbc With Differential Ord2 MCV 88 fL 07/26/2015 Cbc With Differential Ord2 MCH 30 pg 07/26/2015 Cbc With Differential Ord2 MCHC 34 g/dL 07/26/2015 Cbc With Differential Ord2 PLT 220 K/uL 07/26/2015 Cbc With Differential Ord2 RDW 12.8 % 07/26/2015 Total Psa Ord10 PSA 6.72 ng/mL 07/26/2015 Review of Systems System Result Effective Dates Constitutional No recent illness 2017 Constitutional No chills 10/17/2018 Constitutional No diaphoresis 10/17/2018 Constitutional No fever 10/17/2018 Eyes No eye erythema 10/17/2018 Ears/Nose/Throat/Neck No nasal discharge 10/17/2018 Cardiovascular No chest pain/pressure 05/2018 Cardiovascular No dyspnea 10/17/2018 Respiratory No cough 10/17/2018 Respiratory No dyspnea 10/17/2018 Neurologic No alteration of consciousness 10/17/2018 Neurologic No mental status change 2017 Constitutional No recent illness 2017 Constitutional No chills 09/04/2018 Constitutional No fatigue 09/04/2018 Constitutional No fever 09/04/2018 Constitutional No insomnia 09/04/2018 Constitutional No malaise 09/04/2018 Eyes No blindness 09/04/2018 Eyes No vision change 09/04/2018 Ears/Nose/Throat/Neck No dental pain Ears/Nose/Throat/Neck No dizziness 2017 Ears/Nose/Throat/Neck No dysphagia 2017 Ears/Nose/Throat/Neck No headache 2017 Ears/Nose/Throat/Neck No hearing loss Ears/Nose/Throat/Neck No nasal allergies 09/04/2018 Ears/Nose/Throat/Neck No sore throat Ears/Nose/Throat/Neck No postnasal drip 09/04/2018 Ears/Nose/Throat/Neck No sinus congestion 09/04/2018 Cardiovascular No chest pain/pressure Cardiovascular No dyspnea 09/04/2018 Cardiovascular No edema 09/04/2018 Cardiovascular No exercise intolerance Cardiovascular No fatigue 09/04/2018 Cardiovascular No near-syncope/dizziness 09/04/2018 Respiratory No chest tightness 2017 Respiratory cough 09/04/2018 Respiratory No dyspnea 09/04/2018 Respiratory No pedal edema 09/04/2018 Gastrointestinal No abdominal pain 2017 Gastrointestinal No constipation 2017 Gastrointestinal No diarrhea 09/04/2018 Gastrointestinal No gastroesophageal reflux 09/04/2018 Gastrointestinal No nausea 09/04/2018 Gastrointestinal No vomiting 09/04/2018 Genitourinary/Nephrology No dysuria 09/04 Genitourinary/Nephrology nocturia 2017 Genitourinary/Nephrology No urinary incontinence 09/04/2018 Musculoskeletal No stiffness 09/04/2018 Musculoskeletal No swelling 09/04/2018 Musculoskeletal joint complaint 2017 Musculoskeletal No muscle weakness 2017 Musculoskeletal No myalgias 09/04/2018 Dermatologic No rash 09/04/2018 Dermatologic sores 09/04/2018 Neurologic No dizziness 09/04/2018 Neurologic No headache 09/04/2018 Neurologic No neck pain 09/04/2018 Neurologic No syncope 09/04/2018 Psychiatric No anxiety 09/04/2018 Psychiatric No depression 09/04/2018 Constitutional No recent illness 2017 Constitutional No chills 03/05/2018 Constitutional No fatigue 03/05/2018 Constitutional No fever 03/05/2018 Constitutional No insomnia 03/05/2018 Constitutional No malaise 03/05/2018 Eyes No blindness 03/05/2018 Eyes No vision change 03/05/2018 Ears/Nose/Throat/Neck No dental pain Ears/Nose/Throat/Neck No dizziness 2017 Ears/Nose/Throat/Neck No dysphagia 2017 Ears/Nose/Throat/Neck No headache 2017 Ears/Nose/Throat/Neck No hearing loss Ears/Nose/Throat/Neck No nasal allergies 03/05/2018 Ears/Nose/Throat/Neck No sore throat Ears/Nose/Throat/Neck No postnasal drip 03/05/2018 Ears/Nose/Throat/Neck No sinus congestion 03/05/2018 Cardiovascular No chest pain/pressure Cardiovascular No dyspnea 03/05/2018 Cardiovascular No edema 03/05/2018 Cardiovascular No exercise intolerance Cardiovascular No fatigue 03/05/2018 Cardiovascular No near-syncope/dizziness 03/05/2018 Respiratory No chest tightness 2017 Respiratory cough 03/05/2018 Respiratory No dyspnea 03/05/2018 Respiratory No pedal edema 03/05/2018 Gastrointestinal No abdominal pain 2017 Gastrointestinal No constipation 2017 Gastrointestinal No diarrhea 03/05/2018 Gastrointestinal No gastroesophageal reflux 03/05/2018 Gastrointestinal No nausea 03/05/2018 Gastrointestinal No vomiting 03/05/2018 Genitourinary/Nephrology No dysuria 03/05 Genitourinary/Nephrology nocturia 2017 Genitourinary/Nephrology No urinary incontinence 03/05/2018 Musculoskeletal No stiffness 03/05/2018 Musculoskeletal No swelling 03/05/2018 Musculoskeletal No muscle weakness 2017 Musculoskeletal No myalgias 03/05/2018 Dermatologic No rash 03/05/2018 Dermatologic No sores 03/05/2018 Neurologic No dizziness 03/05/2018 Neurologic No headache 03/05/2018 Neurologic No neck pain 03/05/2018 Neurologic No syncope 03/05/2018 Psychiatric No anxiety 03/05/2018 Psychiatric No depression 03/05/2018 Musculoskeletal joint complaint 2017 Dermatologic mole change 03/05/2018 Constitutional No recent illness 2016 Constitutional No chills 10/15/2017 Constitutional No diaphoresis 10/15/2017 Constitutional No fever 10/15/2017 Eyes No eye erythema 10/15/2017 Ears/Nose/Throat/Neck No nasal discharge 10/15/2017 Cardiovascular No chest pain/pressure 03/2017 Cardiovascular No dyspnea 10/15/2017 Respiratory No cough 10/15/2017 Respiratory No dyspnea 10/15/2017 Neurologic No alteration of consciousness 10/15/2017 Neurologic No mental status change 2016 Constitutional No recent illness 2016 Constitutional No chills 08/26/2017 Constitutional No fatigue 08/26/2017 Constitutional No fever 08/26/2017 Constitutional No insomnia 08/26/2017 Constitutional No malaise 08/26/2017 Eyes No blindness 08/26/2017 Eyes No vision change 08/26/2017 Ears/Nose/Throat/Neck No dental pain Ears/Nose/Throat/Neck No dizziness 2016 Ears/Nose/Throat/Neck No dysphagia 2016 Ears/Nose/Throat/Neck No headache 2016 Ears/Nose/Throat/Neck No hearing loss Ears/Nose/Throat/Neck No nasal allergies 08/26/2017 Ears/Nose/Throat/Neck No sore throat Ears/Nose/Throat/Neck No postnasal drip 08/26/2017 Ears/Nose/Throat/Neck No sinus congestion 08/26/2017 Cardiovascular No chest pain/pressure Cardiovascular No dyspnea 08/26/2017 Cardiovascular No edema 08/26/2017 Cardiovascular No exercise intolerance Cardiovascular No fatigue 08/26/2017 Cardiovascular No near-syncope/dizziness 08/26/2017 Respiratory No chest tightness 2016 Respiratory No cough 08/26/2017 Respiratory No dyspnea 08/26/2017 Respiratory No pedal edema 08/26/2017 Gastrointestinal No abdominal pain 2016 Gastrointestinal No constipation 2016 Gastrointestinal No diarrhea 08/26/2017 Gastrointestinal No gastroesophageal reflux 08/26/2017 Gastrointestinal No nausea 08/26/2017 Gastrointestinal No vomiting 08/26/2017 Genitourinary/Nephrology No dysuria 08/26 Genitourinary/Nephrology nocturia 2016 Genitourinary/Nephrology No urinary incontinence 08/26/2017 Musculoskeletal No stiffness 08/26/2017 Musculoskeletal No swelling 08/26/2017 Musculoskeletal No muscle weakness 2016 Musculoskeletal No myalgias 08/26/2017 Dermatologic No rash 08/26/2017 Dermatologic No sores 08/26/2017 Dermatologic No scar 08/26/2017 Neurologic No dizziness 08/26/2017 Neurologic No headache 08/26/2017 Neurologic No neck pain 08/26/2017 Neurologic No syncope 08/26/2017 Psychiatric No anxiety 08/26/2017 Psychiatric No depression 08/26/2017 Constitutional No recent illness 2016 Constitutional No chills 02/19/2017 Constitutional No fatigue 02/19/2017 Constitutional No fever 02/19/2017 Constitutional No insomnia 02/19/2017 Constitutional No malaise 02/19/2017 Eyes No blindness 02/19/2017 Eyes No vision change 02/19/2017 Ears/Nose/Throat/Neck No dental pain 09/2017 Ears/Nose/Throat/Neck No dizziness 2016 Ears/Nose/Throat/Neck No dysphagia 2016 Ears/Nose/Throat/Neck No headache 2016 Ears/Nose/Throat/Neck No hearing loss 09/2017 Ears/Nose/Throat/Neck No nasal allergies 02/19/2017 Ears/Nose/Throat/Neck No sore throat 09/2017 Ears/Nose/Throat/Neck No postnasal drip 02/19/2017 Ears/Nose/Throat/Neck No sinus congestion 02/19/2017 Cardiovascular No chest pain/pressure 09/2017 Cardiovascular No dyspnea 02/19/2017 Cardiovascular No edema 02/19/2017 Cardiovascular No exercise intolerance Cardiovascular No fatigue 02/19/2017 Cardiovascular No near-syncope/dizziness 02/19/2017 Respiratory No chest tightness 2016 Respiratory No cough 02/19/2017 Respiratory No dyspnea 02/19/2017 Respiratory No pedal edema 02/19/2017 Gastrointestinal No abdominal pain 2016 Gastrointestinal No constipation 2016 Gastrointestinal No diarrhea 02/19/2017 Gastrointestinal No gastroesophageal reflux 02/19/2017 Gastrointestinal No nausea 02/19/2017 Gastrointestinal No vomiting 02/19/2017 Genitourinary/Nephrology No dysuria 02/19 Genitourinary/Nephrology nocturia 2016 Genitourinary/Nephrology No urinary incontinence 02/19/2017 Musculoskeletal No stiffness 02/19/2017 Musculoskeletal No swelling 02/19/2017 Musculoskeletal No muscle weakness 2016 Musculoskeletal No myalgias 02/19/2017 Dermatologic No rash 02/19/2017 Dermatologic No sores 02/19/2017 Dermatologic No scar 02/19/2017 Neurologic No dizziness 02/19/2017 Neurologic No headache 02/19/2017 Neurologic No neck pain 02/19/2017 Neurologic No syncope 02/19/2017 Psychiatric No anxiety 02/19/2017 Psychiatric No depression 02/19/2017 Constitutional No recent illness 2015 Constitutional No chills 10/09/2016 Constitutional No fever 10/09/2016 Constitutional No malaise 10/09/2016 Eyes No eye erythema 10/09/2016 Eyes No vision change 10/09/2016 Ears/Nose/Throat/Neck No nasal allergies 10/09/2016 Ears/Nose/Throat/Neck No sore throat Ears/Nose/Throat/Neck No postnasal drip 10/09/2016 Cardiovascular No chest pain/pressure Cardiovascular No dyspnea 10/09/2016 Respiratory No cough 10/09/2016 Respiratory No dyspnea 10/09/2016 Gastrointestinal No abdominal pain 2015 Gastrointestinal No constipation 2015 Gastrointestinal No diarrhea 10/09/2016 Gastrointestinal No gastroesophageal reflux 10/09/2016 Gastrointestinal No nausea 10/09/2016 Gastrointestinal No vomiting 10/09/2016 Dermatologic No rash 10/09/2016 Constitutional No diaphoresis 10/09/2016 Ears/Nose/Throat/Neck No nasal discharge 10/09/2016 Respiratory No chest congestion 2015 Musculoskeletal No joint complaint 2015 Neurologic No alteration of consciousness 10/09/2016 Neurologic No pain, generalized 2015 Constitutional No recent illness 2015 Constitutional No chills 08/02/2016 Constitutional No fatigue 08/02/2016 Constitutional No fever 08/02/2016 Constitutional No insomnia 08/02/2016 Constitutional No malaise 08/02/2016 Eyes No blindness 08/02/2016 Eyes No vision change 08/02/2016 Ears/Nose/Throat/Neck No dental pain Ears/Nose/Throat/Neck No dizziness 2015 Ears/Nose/Throat/Neck No dysphagia 2015 Ears/Nose/Throat/Neck No headache 2015 Ears/Nose/Throat/Neck No hearing loss Ears/Nose/Throat/Neck No nasal allergies 08/02/2016 Ears/Nose/Throat/Neck No sore throat Ears/Nose/Throat/Neck No postnasal drip 08/02/2016 Ears/Nose/Throat/Neck No sinus congestion 08/02/2016 Cardiovascular No chest pain/pressure Cardiovascular No dyspnea 08/02/2016 Cardiovascular No edema 08/02/2016 Cardiovascular No exercise intolerance Cardiovascular No fatigue 08/02/2016 Cardiovascular No near-syncope/dizziness 08/02/2016 Respiratory No chest tightness 2015 Respiratory No cough 08/02/2016 Respiratory No dyspnea 08/02/2016 Respiratory No pedal edema 08/02/2016 Gastrointestinal No abdominal pain 2015 Gastrointestinal No constipation 2015 Gastrointestinal No diarrhea 08/02/2016 Gastrointestinal No gastroesophageal reflux 08/02/2016 Gastrointestinal No nausea 08/02/2016 Gastrointestinal No vomiting 08/02/2016 Genitourinary/Nephrology No dysuria 08/02 Genitourinary/Nephrology nocturia 2015 Genitourinary/Nephrology No urinary incontinence 08/02/2016 Musculoskeletal No stiffness 08/02/2016 Musculoskeletal No swelling 08/02/2016 Musculoskeletal No muscle weakness 2015 Musculoskeletal No myalgias 08/02/2016 Dermatologic No rash 08/02/2016 Dermatologic No sores 08/02/2016 Dermatologic No scar 08/02/2016 Neurologic No dizziness 08/02/2016 Neurologic No headache 08/02/2016 Neurologic No neck pain 08/02/2016 Neurologic No syncope 08/02/2016 Psychiatric No anxiety 08/02/2016 Psychiatric No depression 08/02/2016 Constitutional No recent illness 2015 Constitutional No chills 01/26/2016 Constitutional No fatigue 01/26/2016 Constitutional No fever 01/26/2016 Constitutional No insomnia 01/26/2016 Constitutional No malaise 01/26/2016 Eyes No blindness 01/26/2016 Eyes No vision change 01/26/2016 Ears/Nose/Throat/Neck No dental pain Ears/Nose/Throat/Neck No dizziness 2015 Ears/Nose/Throat/Neck No dysphagia 2015 Ears/Nose/Throat/Neck No headache 2015 Ears/Nose/Throat/Neck No hearing loss Ears/Nose/Throat/Neck No nasal allergies 01/26/2016 Ears/Nose/Throat/Neck No sore throat Ears/Nose/Throat/Neck No postnasal drip 01/26/2016 Ears/Nose/Throat/Neck No sinus congestion 01/26/2016 Cardiovascular No chest pain/pressure Cardiovascular No dyspnea 01/26/2016 Cardiovascular No edema 01/26/2016 Cardiovascular No exercise intolerance Cardiovascular No fatigue 01/26/2016 Cardiovascular No near-syncope/dizziness 01/26/2016 Respiratory No chest tightness 2015 Respiratory No cough 01/26/2016 Respiratory No dyspnea 01/26/2016 Respiratory No pedal edema 01/26/2016 Gastrointestinal No abdominal pain 2015 Gastrointestinal No constipation 2015 Gastrointestinal No diarrhea 01/26/2016 Gastrointestinal No gastroesophageal reflux 01/26/2016 Gastrointestinal No nausea 01/26/2016 Gastrointestinal No vomiting 01/26/2016 Genitourinary/Nephrology No dysuria 01/25 Genitourinary/Nephrology nocturia 2015 Genitourinary/Nephrology No urinary incontinence 01/26/2016 Musculoskeletal No stiffness 01/26/2016 Musculoskeletal No swelling 01/26/2016 Musculoskeletal No muscle weakness 2015 Musculoskeletal No myalgias 01/26/2016 Dermatologic No rash 01/26/2016 Dermatologic No sores 01/26/2016 Dermatologic No scar 01/26/2016 Neurologic No dizziness 01/26/2016 Neurologic No headache 01/26/2016 Neurologic No neck pain 01/26/2016 Neurologic No syncope 01/26/2016 Psychiatric No anxiety 01/26/2016 Psychiatric No depression 01/26/2016 Constitutional No recent illness 2014 Constitutional No chills 07/26/2015 Constitutional No fatigue 07/26/2015 Constitutional No fever 07/26/2015 Constitutional No insomnia 07/26/2015 Constitutional No malaise 07/26/2015 Eyes No blindness 07/26/2015 Eyes No vision change 07/26/2015 Ears/Nose/Throat/Neck No dental pain Ears/Nose/Throat/Neck No dizziness 2014 Ears/Nose/Throat/Neck No dysphagia 2014 Ears/Nose/Throat/Neck No headache 2014 Ears/Nose/Throat/Neck No hearing loss Ears/Nose/Throat/Neck No nasal allergies 07/26/2015 Ears/Nose/Throat/Neck No sore throat Ears/Nose/Throat/Neck No postnasal drip 07/26/2015 Ears/Nose/Throat/Neck No sinus congestion 07/26/2015 Cardiovascular No chest pain/pressure Cardiovascular No dyspnea 07/26/2015 Cardiovascular No edema 07/26/2015 Cardiovascular No exercise intolerance Cardiovascular No fatigue 07/26/2015 Cardiovascular No near-syncope/dizziness 07/26/2015 Respiratory No chest tightness 2014 Respiratory No cough 07/26/2015 Respiratory No dyspnea 07/26/2015 Respiratory No pedal edema 07/26/2015 Gastrointestinal No abdominal pain 2014 Gastrointestinal No constipation 2014 Gastrointestinal No diarrhea 07/26/2015 Gastrointestinal No gastroesophageal reflux 07/26/2015 Gastrointestinal No nausea 07/26/2015 Gastrointestinal No vomiting 07/26/2015 Genitourinary/Nephrology No dysuria 07/26 Genitourinary/Nephrology nocturia 2014 Genitourinary/Nephrology No urinary incontinence 07/26/2015 Musculoskeletal No stiffness 07/26/2015 Musculoskeletal No swelling 07/26/2015 Musculoskeletal No muscle weakness 2014 Musculoskeletal No myalgias 07/26/2015 Dermatologic No rash 07/26/2015 Dermatologic No sores 07/26/2015 Dermatologic No scar 07/26/2015 Neurologic No dizziness 07/26/2015 Neurologic No headache 07/26/2015 Neurologic No neck pain 07/26/2015 Neurologic No syncope 07/26/2015 Psychiatric No anxiety 07/26/2015 Psychiatric No depression 07/26/2015 Physical Exam Exam Name System Name Item Name Status Result Effective Dates Notes Full Exam - General 1994 Constitutional general appearance Overall: well developed 10/17/2018 None Full Exam - General 1994 Constitutional general appearance Overall: in no acute distress 10/17/2018 None Full Exam - General 1994 Constitutional general appearance Overall: well nourished 10/17/2018 None Full Exam - General 1994 Eyes conjunctiva /eyelids Overall: conjunctiva clear 10/17/2018 None Full Exam - General 1994 Eyes conjunctiva /eyelids Overall: eyelids normal 10/17/2018 None Full Exam - General 1995 Ears/Nose/Throat lips/teeth/gingiva Overall: benign lips 10/17/2018 None Full Exam - General 1994 Respiratory respiratory effort/rhythm Overall: no retractions 10/17/2018 None Full Exam - General 1994 Respiratory respiratory effort/rhythm Overall: normal rate 10/17/2018 None Full Exam - General 1994 Musculoskeletal head and neck Overall: head atraumatic 10/17/2018 None Full Exam - General 1994 Neurologic cranial nerves Overall: crainial nerves 2 - 12 grossly intact 10/17/2018 None Full Exam - General 1994 Psychiatric orientation/consciousness Overall: oriented to person, place and time 10/17/2018 None Full Exam - General 1994 Psychiatric mood and affect Overall: normal mood and affect 10/17/2018 None Full Exam - General 1994 Psychiatric appearance Overall: well-groomed, good eye contact 10/17/2018 None Full Exam - General 1994 Constitutional general appearance Development: well developed 09/04/2018 None Full Exam - General 1994 Constitutional general appearance Development: appears stated age 1009/04/2018 None Full Exam - General 1994 Constitutional general appearance Hygiene/Attention to Grooming: good hygiene 09/04/2018 None Full Exam - General 1994 Eyes conjunctiva /eyelids Overall: conjunctiva clear 09/04/2018 None Full Exam - General 1994 Eyes conjunctiva /eyelids Overall: cornea clear 09/04/2018 None Full Exam - General 1994 Eyes conjunctiva /eyelids Overall: eyelids normal 09/04/2018 None Full Exam - General 1994 Eyes pupils and irises Overall: pupils equal, round, reactive to light and accomodation 09/04/2018 None Full Exam - General 1994 Ears/Nose/Throat otoscopic exam Overall: external auditory canals clear 09/04/2018 None Full Exam - General 1994 Ears/Nose/Throat otoscopic exam Overall: tympanic membranes clear 09/04/2018 None Full Exam - General 1994 Ears/Nose/Throat lips/teeth/gingiva Overall: benign lips 09/04/2018 None Full Exam - General 1994 Ears/Nose/Throat lips/teeth/gingiva Overall: normal dentition 09/04/2018 None Full Exam - General 1994 Ears/Nose/Throat oral cavity/pharynx/larynx Overall: oral mucosa clear 09/04/2018 None Full Exam - General 1994 Ears/Nose/Throat oral cavity/pharynx/larynx Overall: oropharyngeal mucosa clear 09/04/2018 None Full Exam - General 1994 Ears/Nose/Throat oral cavity/pharynx/larynx Overall: hypopharynx benign 09/04/2018 None Full Exam - General 1994 Ears/Nose/Throat oral cavity/pharynx/larynx Overall: no masses 09/04/2018 None Full Exam - General 1994 Respiratory auscultation Overall: breath sounds clear bilaterally 09/04/2018 None Full Exam - General 1994 Respiratory respiratory effort/rhythm Overall: no retractions 09/04/2018 None Full Exam - General 1994 Respiratory respiratory effort/rhythm Overall: normal rate 09/04/2018 None Full Exam - General 1994 Cardiovascular extremities Overall: no clubbing 09/04/2018 None Full Exam - General 1994 Cardiovascular auscultation of heart Overall: regular rate 09/04/2018 None Full Exam - General 1994 Cardiovascular auscultation of heart Overall: normal heart sounds 09/04/2018 None Full Exam - General 1994 Abdomen abdominal exam Overall: no tenderness 09/04/2018 None Full Exam - General 1994 Abdomen abdominal exam Overall: normal bowel sounds 09/04/2018 None Full Exam - General 1994 Musculoskeletal spine, ribs and pelvis Overall: spine benign 09/04/2018 None Full Exam - General 1994 Musculoskeletal spine, ribs and pelvis Overall: sacroiliac joint benign 09/04/2018 None Full Exam - General 1994 Musculoskeletal spine, ribs and pelvis Overall: good posture 09/04/2018 None Full Exam - General 1994 Musculoskeletal head and neck Overall: head atraumatic 09/04/2018 None Full Exam - General 1994 Musculoskeletal head and neck Overall: cervical spine benign 09/04/2018 None Full Exam - General 1994 Neurologic cranial nerves Overall: crainial nerves 2 - 12 grossly intact 09/04/2018 None Full Exam - General 1994 Psychiatric orientation/consciousness Overall: oriented to person, place and time 09/04/2018 None Full Exam - General 1994 Psychiatric mood and affect Overall: normal mood and affect 09/04/2018 None Full Exam - General 1994 Integument inspection of skin Rash/Lesions: nodule 09/04/2018 in left lower lip - pt reports picking at the lesion - crusting of the lesion Full Exam - General 1994 Constitutional general appearance Development: well developed 03/05/2018 None Full Exam - General 1994 Constitutional general appearance Development: appears stated age 0403/05/2018 None Full Exam - General 1994 Constitutional general appearance Hygiene/Attention to Grooming: good hygiene 03/05/2018 None Full Exam - General 1994 Eyes conjunctiva /eyelids Overall: conjunctiva clear 03/05/2018 None Full Exam - General 1994 Eyes conjunctiva /eyelids Overall: cornea clear 03/05/2018 None Full Exam - General 1994 Eyes conjunctiva /eyelids Overall: eyelids normal 03/05/2018 None Full Exam - General 1994 Eyes pupils and irises Overall: pupils equal, round, reactive to light and accomodation 03/05/2018 None Full Exam - General 1994 Ears/Nose/Throat otoscopic exam Overall: external auditory canals clear 03/05/2018 None Full Exam - General 1994 Ears/Nose/Throat otoscopic exam Overall: tympanic membranes clear 03/05/2018 None Full Exam - General 1994 Ears/Nose/Throat lips/teeth/gingiva Overall: benign lips 03/05/2018 None Full Exam - General 1994 Ears/Nose/Throat lips/teeth/gingiva Overall: normal dentition 03/05/2018 None Full Exam - General 1994 Ears/Nose/Throat oral cavity/pharynx/larynx Overall: oral mucosa clear 03/05/2018 None Full Exam - General 1994 Ears/Nose/Throat oral cavity/pharynx/larynx Overall: oropharyngeal mucosa clear 03/05/2018 None Full Exam - General 1994 Ears/Nose/Throat oral cavity/pharynx/larynx Overall: hypopharynx benign 03/05/2018 None Full Exam - General 1994 Ears/Nose/Throat oral cavity/pharynx/larynx Overall: no masses 03/05/2018 None Full Exam - General 1994 Respiratory auscultation Overall: breath sounds clear bilaterally 03/05/2018 None Full Exam - General 1994 Respiratory respiratory effort/rhythm Overall: no retractions 03/05/2018 None Full Exam - General 1994 Respiratory respiratory effort/rhythm Overall: normal rate 03/05/2018 None Full Exam - General 1994 Cardiovascular extremities Overall: no clubbing 03/05/2018 None Full Exam - General 1994 Cardiovascular auscultation of heart Overall: regular rate 03/05/2018 None Full Exam - General 1994 Cardiovascular auscultation of heart Overall: normal heart sounds 03/05/2018 None Full Exam - General 1994 Abdomen abdominal exam Overall: no tenderness 03/05/2018 None Full Exam - General 1994 Abdomen abdominal exam Overall: normal bowel sounds 03/05/2018 None Full Exam - General 1994 Lymphatic neck nodes Overall: anterior cervical chain benign 03/05/2018 None Full Exam - General 1994 Lymphatic neck nodes Overall: posterior cervical chain benign 03/05/2018 None Full Exam - General 1994 Musculoskeletal spine, ribs and pelvis Overall: spine benign 03/05/2018 None Full Exam - General 1994 Musculoskeletal spine, ribs and pelvis Overall: sacroiliac joint benign 03/05/2018 None Full Exam - General 1994 Musculoskeletal spine, ribs and pelvis Overall: good posture 03/05/2018 None Full Exam - General 1994 Musculoskeletal head and neck Overall: head atraumatic 03/05/2018 None Full Exam - General 1994 Musculoskeletal head and neck Overall: cervical spine benign 03/05/2018 None Full Exam - General 1994 Neurologic deep tendon reflexes Overall: deep tendon reflexes intact 03/05/2018 None Full Exam - General 1994 Neurologic cranial nerves Overall: crainial nerves 2 - 12 grossly intact 03/05/2018 None Full Exam - General 1994 Psychiatric orientation/consciousness Overall: oriented to person, place and time 03/05/2018 None Full Exam - General 1994 Psychiatric mood and affect Overall: normal mood and affect 03/05/2018 None Full Exam - General 1994 Integument inspection of skin Location: right arm 03/05/2018 on upper arm on the deltoid - nodular skin lesion Full Exam - General 1994 Constitutional general appearance Overall: well developed 10/15/2017 None Full Exam - General 1994 Constitutional general appearance Overall: in no acute distress 10/15/2017 None Full Exam - General 1994 Constitutional general appearance Overall: well nourished 10/15/2017 None Full Exam - General 1994 Eyes conjunctiva /eyelids Overall: conjunctiva clear 10/15/2017 None Full Exam - General 1994 Eyes conjunctiva /eyelids Overall: eyelids normal 10/15/2017 None Full Exam - General 1994 Ears/Nose/Throat lips/teeth/gingiva Overall: benign lips 10/15/2017 None Full Exam - General 1994 Respiratory respiratory effort/rhythm Overall: no retractions 10/15/2017 None Full Exam - General 1994 Respiratory respiratory effort/rhythm Overall: normal rate 10/15/2017 None Full Exam - General 1994 Musculoskeletal head and neck Overall: head atraumatic 10/15/2017 None Full Exam - General 1994 Neurologic cranial nerves Overall: crainial nerves 2 - 12 grossly intact 10/15/2017 None Full Exam - General 1994 Psychiatric orientation/consciousness Overall: oriented to person, place and time 10/15/2017 None Full Exam - General 1994 Psychiatric mood and affect Overall: normal mood and affect 10/15/2017 None Full Exam - General 1994 Psychiatric appearance Overall: well-groomed, good eye contact 10/15/2017 None Full Exam - General 1994 Constitutional general appearance Development: well developed 08/26/2017 None Full Exam - General 1994 Constitutional general appearance Development: appears stated age 1008/26/2017 None Full Exam - General 1994 Constitutional general appearance Hygiene/Attention to Grooming: good hygiene 08/26/2017 None Full Exam - General 1994 Eyes conjunctiva /eyelids Overall: conjunctiva clear 08/26/2017 None Full Exam - General 1994 Eyes conjunctiva /eyelids Overall: cornea clear 08/26/2017 None Full Exam - General 1994 Eyes conjunctiva /eyelids Overall: eyelids normal 08/26/2017 None Full Exam - General 1994 Eyes pupils and irises Overall: pupils equal, round, reactive to light and accomodation 08/26/2017 None Full Exam - General 1994 Ears/Nose/Throat otoscopic exam Overall: external auditory canals clear 08/26/2017 None Full Exam - General 1994 Ears/Nose/Throat otoscopic exam Overall: tympanic membranes clear 08/26/2017 None Full Exam - General 1994 Ears/Nose/Throat lips/teeth/gingiva Overall: benign lips 08/26/2017 None Full Exam - General 1994 Ears/Nose/Throat lips/teeth/gingiva Overall: normal dentition 08/26/2017 None Full Exam - General 1994 Ears/Nose/Throat oral cavity/pharynx/larynx Overall: oral mucosa clear 08/26/2017 None Full Exam - General 1994 Ears/Nose/Throat oral cavity/pharynx/larynx Overall: oropharyngeal mucosa clear 08/26/2017 None Full Exam - General 1994 Ears/Nose/Throat oral cavity/pharynx/larynx Overall: hypopharynx benign 08/26/2017 None Full Exam - General 1994 Ears/Nose/Throat oral cavity/pharynx/larynx Overall: no masses 08/26/2017 None Full Exam - General 1994 Respiratory auscultation Overall: breath sounds clear bilaterally 08/26/2017 None Full Exam - General 1994 Respiratory respiratory effort/rhythm Overall: no retractions 08/26/2017 None Full Exam - General 1994 Respiratory respiratory effort/rhythm Overall: normal rate 08/26/2017 None Full Exam - General 1994 Cardiovascular extremities Overall: no clubbing 08/26/2017 None Full Exam - General 1994 Cardiovascular auscultation of heart Overall: regular rate 08/26/2017 None Full Exam - General 1994 Cardiovascular auscultation of heart Overall: normal heart sounds 08/26/2017 None Full Exam - General 1994 Abdomen abdominal exam Overall: no tenderness 08/26/2017 None Full Exam - General 1994 Abdomen abdominal exam Overall: normal bowel sounds 08/26/2017 None Full Exam - General 1994 Lymphatic neck nodes Overall: anterior cervical chain benign 08/26/2017 None Full Exam - General 1994 Lymphatic neck nodes Overall: posterior cervical chain benign 08/26/2017 None Full Exam - General 1994 Musculoskeletal spine, ribs and pelvis Overall: spine benign 08/26/2017 None Full Exam - General 1994 Musculoskeletal spine, ribs and pelvis Overall: sacroiliac joint benign 08/26/2017 None Full Exam - General 1994 Musculoskeletal spine, ribs and pelvis Overall: good posture 08/26/2017 None Full Exam - General 1994 Musculoskeletal head and neck Overall: head atraumatic 08/26/2017 None Full Exam - General 1994 Musculoskeletal head and neck Overall: cervical spine benign 08/26/2017 None Full Exam - General 1994 Integument inspection of skin Overall: few scattered moles, no gross abnormalities 08/26/2017 None Full Exam - General 1994 Neurologic deep tendon reflexes Overall: deep tendon reflexes intact 08/26/2017 None Full Exam - General 1994 Neurologic cranial nerves Overall: crainial nerves 2 - 12 grossly intact 08/26/2017 None Full Exam - General 1994 Psychiatric orientation/consciousness Overall: oriented to person, place and time 08/26/2017 None Full Exam - General 1994 Psychiatric mood and affect Overall: normal mood and affect 08/26/2017 None Full Exam - General 1994 Constitutional general appearance Development: well developed 02/19/2017 None Full Exam - General 1994 Constitutional general appearance Development: appears stated age 0402/19/2017 None Full Exam - General 1994 Constitutional general appearance Hygiene/Attention to Grooming: good hygiene 02/19/2017 None Full Exam - General 1994 Eyes conjunctiva /eyelids Overall: conjunctiva clear 02/19/2017 None Full Exam - General 1994 Eyes conjunctiva /eyelids Overall: cornea clear 02/19/2017 None Full Exam - General 1994 Eyes conjunctiva /eyelids Overall: eyelids normal 02/19/2017 None Full Exam - General 1994 Eyes pupils and irises Overall: pupils equal, round, reactive to light and accomodation 02/19/2017 None Full Exam - General 1994 Ears/Nose/Throat otoscopic exam Overall: external auditory canals clear 02/19/2017 None Full Exam - General 1994 Ears/Nose/Throat otoscopic exam Overall: tympanic membranes clear 02/19/2017 None Full Exam - General 1994 Ears/Nose/Throat lips/teeth/gingiva Overall: benign lips 02/19/2017 None Full Exam - General 1994 Ears/Nose/Throat lips/teeth/gingiva Overall: normal dentition 02/19/2017 None Full Exam - General 1994 Ears/Nose/Throat oral cavity/pharynx/larynx Overall: oral mucosa clear 02/19/2017 None Full Exam - General 1994 Ears/Nose/Throat oral cavity/pharynx/larynx Overall: oropharyngeal mucosa clear 02/19/2017 None Full Exam - General 1994 Ears/Nose/Throat oral cavity/pharynx/larynx Overall: hypopharynx benign 02/19/2017 None Full Exam - General 1994 Ears/Nose/Throat oral cavity/pharynx/larynx Overall: no masses 02/19/2017 None Full Exam - General 1994 Respiratory auscultation Overall: breath sounds clear bilaterally 02/19/2017 None Full Exam - General 1994 Respiratory respiratory effort/rhythm Overall: no retractions 02/19/2017 None Full Exam - General 1994 Respiratory respiratory effort/rhythm Overall: normal rate 02/19/2017 None Full Exam - General 1994 Cardiovascular extremities Overall: no clubbing 02/19/2017 None Full Exam - General 1994 Cardiovascular auscultation of heart Overall: regular rate 02/19/2017 None Full Exam - General 1994 Cardiovascular auscultation of heart Overall: normal heart sounds 02/19/2017 None Full Exam - General 1994 Abdomen abdominal exam Overall: no tenderness 02/19/2017 None Full Exam - General 1994 Abdomen abdominal exam Overall: normal bowel sounds 02/19/2017 None Full Exam - General 1994 Lymphatic neck nodes Overall: anterior cervical chain benign 02/19/2017 None Full Exam - General 1994 Lymphatic neck nodes Overall: posterior cervical chain benign 02/19/2017 None Full Exam - General 1994 Musculoskeletal spine, ribs and pelvis Overall: good posture 02/19/2017 None Full Exam - General 1994 Musculoskeletal head and neck Overall: head atraumatic 02/19/2017 None Full Exam - General 1994 Musculoskeletal head and neck Overall: cervical spine benign 02/19/2017 None Full Exam - General 1994 Neurologic deep tendon reflexes Overall: deep tendon reflexes intact 02/19/2017 None Full Exam - General 1994 Neurologic cranial nerves Overall: crainial nerves 2 - 12 grossly intact 02/19/2017 None Full Exam - General 1994 Psychiatric orientation/consciousness Overall: oriented to person, place and time 02/19/2017 None Full Exam - General 1994 Psychiatric mood and affect Overall: normal mood and affect 02/19/2017 None Full Exam - General 1994 Constitutional general appearance Hygiene/Attention to Grooming: good hygiene 10/09/2016 None Full Exam - General 1994 Eyes conjunctiva /eyelids Overall: conjunctiva clear 10/09/2016 None Full Exam - General 1994 Eyes conjunctiva /eyelids Overall: cornea clear 10/09/2016 None Full Exam - General 1994 Eyes conjunctiva /eyelids Overall: eyelids normal 10/09/2016 None Full Exam - General 1994 Eyes pupils and irises Overall: pupils equal, round, reactive to light and accomodation 10/09/2016 None Full Exam - General 1994 Ears/Nose/Throat otoscopic exam Overall: external auditory canals clear 10/09/2016 None Full Exam - General 1994 Ears/Nose/Throat otoscopic exam Overall: tympanic membranes clear 10/09/2016 None Full Exam - General 1994 Ears/Nose/Throat lips/teeth/gingiva Overall: benign lips 10/09/2016 None Full Exam - General 1994 Ears/Nose/Throat lips/teeth/gingiva Overall: normal dentition 10/09/2016 None Full Exam - General 1994 Ears/Nose/Throat oral cavity/pharynx/larynx Overall: oral mucosa clear 10/09/2016 None Full Exam - General 1994 Ears/Nose/Throat oral cavity/pharynx/larynx Overall: oropharyngeal mucosa clear 10/09/2016 None Full Exam - General 1994 Ears/Nose/Throat oral cavity/pharynx/larynx Overall: no masses 10/09/2016 None Full Exam - General 1994 Respiratory auscultation Overall: breath sounds clear bilaterally 10/09/2016 None Full Exam - General 1994 Respiratory respiratory effort/rhythm Overall: no retractions 10/09/2016 None Full Exam - General 1994 Respiratory respiratory effort/rhythm Overall: normal rate 10/09/2016 None Full Exam - General 1994 Cardiovascular extremities Overall: no clubbing 10/09/2016 None Full Exam - General 1994 Cardiovascular auscultation of heart Overall: regular rate 10/09/2016 None Full Exam - General 1994 Cardiovascular auscultation of heart Overall: normal heart sounds 10/09/2016 None Full Exam - General 1994 Abdomen abdominal exam Overall: no tenderness 10/09/2016 None Full Exam - General 1994 Abdomen abdominal exam Overall: normal bowel sounds 10/09/2016 None Full Exam - General 1994 Lymphatic neck nodes Overall: anterior cervical chain benign 10/09/2016 None Full Exam - General 1994 Lymphatic neck nodes Overall: posterior cervical chain benign 10/09/2016 None Full Exam - General 1994 Musculoskeletal spine, ribs and pelvis Overall: good posture 10/09/2016 None Full Exam - General 1994 Musculoskeletal head and neck Overall: head atraumatic 10/09/2016 None Full Exam - General 1994 Integument inspection of skin Overall: few scattered moles, no gross abnormalities 10/09/2016 None Full Exam - General 1994 Neurologic cranial nerves Overall: crainial nerves 2 - 12 grossly intact 10/09/2016 None Full Exam - General 1994 Psychiatric orientation/consciousness Overall: oriented to person, place and time 10/09/2016 None Full Exam - General 1994 Psychiatric mood and affect Overall: normal mood and affect 10/09/2016 None Full Exam - General 1994 Constitutional general appearance Overall: well developed 10/09/2016 None Full Exam - General 1994 Constitutional general appearance Overall: in no acute distress 10/09/2016 None Full Exam - General 1994 Constitutional general appearance Overall: well nourished 10/09/2016 None Full Exam - General 1994 Musculoskeletal spine, ribs and pelvis Overall: ribs benign 10/09/2016 None Full Exam - General 1994 Musculoskeletal gait and station Overall: normal gait 10/09/2016 None Full Exam - General 1994 Musculoskeletal gait and station Overall: normal station 10/09/2016 None Full Exam - General 1994 Constitutional general appearance Development: well developed 08/02/2016 None Full Exam - General 1994 Constitutional general appearance Development: appears stated age 0908/02/2016 None Full Exam - General 1994 Constitutional general appearance Hygiene/Attention to Grooming: good hygiene 08/02/2016 None Full Exam - General 1994 Eyes conjunctiva /eyelids Overall: conjunctiva clear 08/02/2016 None Full Exam - General 1994 Eyes conjunctiva /eyelids Overall: cornea clear 08/02/2016 None Full Exam - General 1994 Eyes conjunctiva /eyelids Overall: eyelids normal 08/02/2016 None Full Exam - General 1994 Eyes pupils and irises Overall: pupils equal, round, reactive to light and accomodation 08/02/2016 None Full Exam - General 1994 Ears/Nose/Throat otoscopic exam Overall: external auditory canals clear 08/02/2016 None Full Exam - General 1994 Ears/Nose/Throat otoscopic exam Overall: tympanic membranes clear 08/02/2016 None Full Exam - General 1994 Ears/Nose/Throat lips/teeth/gingiva Overall: benign lips 08/02/2016 None Full Exam - General 1994 Ears/Nose/Throat lips/teeth/gingiva Overall: normal dentition 08/02/2016 None Full Exam - General 1994 Ears/Nose/Throat oral cavity/pharynx/larynx Overall: oral mucosa clear 08/02/2016 None Full Exam - General 1994 Ears/Nose/Throat oral cavity/pharynx/larynx Overall: oropharyngeal mucosa clear 08/02/2016 None Full Exam - General 1994 Ears/Nose/Throat oral cavity/pharynx/larynx Overall: hypopharynx benign 08/02/2016 None Full Exam - General 1994 Ears/Nose/Throat oral cavity/pharynx/larynx Overall: no masses 08/02/2016 None Full Exam - General 1994 Respiratory auscultation Overall: breath sounds clear bilaterally 08/02/2016 None Full Exam - General 1994 Respiratory respiratory effort/rhythm Overall: no retractions 08/02/2016 None Full Exam - General 1994 Respiratory respiratory effort/rhythm Overall: normal rate 08/02/2016 None Full Exam - General 1994 Cardiovascular extremities Overall: no clubbing 08/02/2016 None Full Exam - General 1994 Cardiovascular auscultation of heart Overall: regular rate 08/02/2016 None Full Exam - General 1994 Cardiovascular auscultation of heart Overall: normal heart sounds 08/02/2016 None Full Exam - General 1994 Abdomen abdominal exam Overall: no tenderness 08/02/2016 None Full Exam - General 1994 Abdomen abdominal exam Overall: normal bowel sounds 08/02/2016 None Full Exam - General 1994 Lymphatic neck nodes Overall: anterior cervical chain benign 08/02/2016 None Full Exam - General 1994 Lymphatic neck nodes Overall: posterior cervical chain benign 08/02/2016 None Full Exam - General 1994 Musculoskeletal spine, ribs and pelvis Overall: spine benign 08/02/2016 None Full Exam - General 1994 Musculoskeletal spine, ribs and pelvis Overall: sacroiliac joint benign 08/02/2016 None Full Exam - General 1994 Musculoskeletal spine, ribs and pelvis Overall: good posture 08/02/2016 None Full Exam - General 1994 Musculoskeletal head and neck Overall: head atraumatic 08/02/2016 None Full Exam - General 1994 Musculoskeletal head and neck Overall: cervical spine benign 08/02/2016 None Full Exam - General 1994 Integument inspection of skin Overall: few scattered moles, no gross abnormalities 08/02/2016 None Full Exam - General 1994 Neurologic deep tendon reflexes Overall: deep tendon reflexes intact 08/02/2016 None Full Exam - General 1994 Neurologic cranial nerves Overall: crainial nerves 2 - 12 grossly intact 08/02/2016 None Full Exam - General 1994 Psychiatric orientation/consciousness Overall: oriented to person, place and time 08/02/2016 None Full Exam - General 1994 Psychiatric mood and affect Overall: normal mood and affect 08/02/2016 None Full Exam - General 1994 Constitutional general appearance Development: well developed 01/26/2016 None Full Exam - General 1994 Constitutional general appearance Development: appears stated age 0301/26/2016 None Full Exam - General 1994 Constitutional general appearance Hygiene/Attention to Grooming: good hygiene 01/26/2016 None Full Exam - General 1994 Eyes conjunctiva /eyelids Overall: conjunctiva clear 01/26/2016 None Full Exam - General 1994 Eyes conjunctiva /eyelids Overall: cornea clear 01/26/2016 None Full Exam - General 1994 Eyes conjunctiva /eyelids Overall: eyelids normal 01/26/2016 None Full Exam - General 1994 Eyes pupils and irises Overall: pupils equal, round, reactive to light and accomodation 01/26/2016 None Full Exam - General 1994 Ears/Nose/Throat otoscopic exam Overall: external auditory canals clear 01/26/2016 None Full Exam - General 1994 Ears/Nose/Throat otoscopic exam Overall: tympanic membranes clear 01/26/2016 None Full Exam - General 1994 Ears/Nose/Throat lips/teeth/gingiva Overall: benign lips 01/26/2016 None Full Exam - General 1994 Ears/Nose/Throat lips/teeth/gingiva Overall: normal dentition 01/26/2016 None Full Exam - General 1994 Ears/Nose/Throat oral cavity/pharynx/larynx Overall: oral mucosa clear 01/26/2016 None Full Exam - General 1994 Ears/Nose/Throat oral cavity/pharynx/larynx Overall: oropharyngeal mucosa clear 01/26/2016 None Full Exam - General 1994 Ears/Nose/Throat oral cavity/pharynx/larynx Overall: hypopharynx benign 01/26/2016 None Full Exam - General 1994 Ears/Nose/Throat oral cavity/pharynx/larynx Overall: no masses 01/26/2016 None Full Exam - General 1994 Respiratory auscultation Overall: breath sounds clear bilaterally 01/26/2016 None Full Exam - General 1994 Respiratory respiratory effort/rhythm Overall: no retractions 01/26/2016 None Full Exam - General 1994 Respiratory respiratory effort/rhythm Overall: normal rate 01/26/2016 None Full Exam - General 1994 Cardiovascular extremities Overall: no clubbing 01/26/2016 None Full Exam - General 1994 Cardiovascular auscultation of heart Overall: regular rate 01/26/2016 None Full Exam - General 1994 Cardiovascular auscultation of heart Overall: normal heart sounds 01/26/2016 None Full Exam - General 1994 Abdomen abdominal exam Overall: no tenderness 01/26/2016 None Full Exam - General 1994 Abdomen abdominal exam Overall: normal bowel sounds 01/26/2016 None Full Exam - General 1994 Lymphatic neck nodes Overall: anterior cervical chain benign 01/26/2016 None Full Exam - General 1994 Lymphatic neck nodes Overall: posterior cervical chain benign 01/26/2016 None Full Exam - General 1994 Musculoskeletal spine, ribs and pelvis Overall: spine benign 01/26/2016 None Full Exam - General 1994 Musculoskeletal spine, ribs and pelvis Overall: sacroiliac joint benign 01/26/2016 None Full Exam - General 1994 Musculoskeletal spine, ribs and pelvis Overall: good posture 01/26/2016 None Full Exam - General 1994 Musculoskeletal head and neck Overall: head atraumatic 01/26/2016 None Full Exam - General 1994 Musculoskeletal head and neck Overall: cervical spine benign 01/26/2016 None Full Exam - General 1994 Integument inspection of skin Overall: few scattered moles, no gross abnormalities 01/26/2016 None Full Exam - General 1994 Neurologic deep tendon reflexes Overall: deep tendon reflexes intact 01/26/2016 None Full Exam - General 1994 Neurologic cranial nerves Overall: crainial nerves 2 - 12 grossly intact 01/26/2016 None Full Exam - General 1994 Psychiatric orientation/consciousness Overall: oriented to person, place and time 01/26/2016 None Full Exam - General 1994 Psychiatric mood and affect Overall: normal mood and affect 01/26/2016 None Full Exam - General 1994 Constitutional general appearance Development: well developed 07/26/2015 None Full Exam - General 1994 Constitutional general appearance Development: appears stated age 0907/26/2015 None Full Exam - General 1994 Constitutional general appearance Hygiene/Attention to Grooming: good hygiene 07/26/2015 None Full Exam - General 1994 Eyes conjunctiva /eyelids Overall: conjunctiva clear 07/26/2015 None Full Exam - General 1994 Eyes conjunctiva /eyelids Overall: cornea clear 07/26/2015 None Full Exam - General 1994 Eyes conjunctiva /eyelids Overall: eyelids normal 07/26/2015 None Full Exam - General 1994 Eyes pupils and irises Overall: pupils equal, round, reactive to light and accomodation 07/26/2015 None Full Exam - General 1994 Ears/Nose/Throat otoscopic exam Overall: external auditory canals clear 07/26/2015 None Full Exam - General 1994 Ears/Nose/Throat otoscopic exam Overall: tympanic membranes clear 07/26/2015 None Full Exam - General 1994 Ears/Nose/Throat lips/teeth/gingiva Overall: benign lips 07/26/2015 None Full Exam - General 1994 Ears/Nose/Throat lips/teeth/gingiva Overall: normal dentition 07/26/2015 None Full Exam - General 1994 Ears/Nose/Throat oral cavity/pharynx/larynx Overall: oral mucosa clear 07/26/2015 None Full Exam - General 1994 Ears/Nose/Throat oral cavity/pharynx/larynx Overall: oropharyngeal mucosa clear 07/26/2015 None Full Exam - General 1994 Ears/Nose/Throat oral cavity/pharynx/larynx Overall: hypopharynx benign 07/26/2015 None Full Exam - General 1994 Ears/Nose/Throat oral cavity/pharynx/larynx Overall: no masses 07/26/2015 None Full Exam - General 1994 Respiratory auscultation Overall: breath sounds clear bilaterally 07/26/2015 None Full Exam - General 1994 Respiratory respiratory effort/rhythm Overall: no retractions 07/26/2015 None Full Exam - General 1994 Respiratory respiratory effort/rhythm Overall: normal rate 07/26/2015 None Full Exam - General 1994 Cardiovascular extremities Overall: no clubbing 07/26/2015 None Full Exam - General 1994 Cardiovascular auscultation of heart Overall: regular rate 07/26/2015 None Full Exam - General 1994 Cardiovascular auscultation of heart Overall: normal heart sounds 07/26/2015 None Full Exam - General 1994 Abdomen abdominal exam Overall: no tenderness 07/26/2015 None Full Exam - General 1994 Abdomen abdominal exam Overall: normal bowel sounds 07/26/2015 None Full Exam - General 1994 Lymphatic neck nodes Overall: anterior cervical chain benign 07/26/2015 None Full Exam - General 1994 Lymphatic neck nodes Overall: posterior cervical chain benign 07/26/2015 None Full Exam - General 1994 Musculoskeletal spine, ribs and pelvis Overall: spine benign 07/26/2015 None Full Exam - General 1994 Musculoskeletal spine, ribs and pelvis Overall: sacroiliac joint benign 07/26/2015 None Full Exam - General 1994 Musculoskeletal spine, ribs and pelvis Overall: good posture 07/26/2015 None Full Exam - General 1994 Musculoskeletal head and neck Overall: head atraumatic 07/26/2015 None Full Exam - General 1994 Musculoskeletal head and neck Overall: cervical spine benign 07/26/2015 None Full Exam - General 1994 Integument inspection of skin Overall: few scattered moles, no gross abnormalities 07/26/2015 None Full Exam - General 1994 Neurologic deep tendon reflexes Overall: deep tendon reflexes intact 07/26/2015 None Full Exam - General 1994 Neurologic cranial nerves Overall: crainial nerves 2 - 12 grossly intact 07/26/2015 None Full Exam - General 1994 Psychiatric orientation/consciousness Overall: oriented to person, place and time 07/26/2015 None Full Exam - General 1994 Psychiatric mood and affect Overall: normal mood and affect 07/26/2015 None Procedures Procedure Codes Date PPPS, SUBSEQ VISIT CPT -4: G0439 10/17/2018 PPPS, SUBSEQ VISIT CPT -4: G0439 10/15/2017 IIV4 VACC NO PRSV 3 YRS+ IM CPT-4: 46719 08/26/2017 FLU VAC NO PRSV 4 ISABEL 3 YRS+ CPT-4: 14316 08/26/2017 IIV4 VACC NO PRSV 3 YRS+ IM CPT-4: 60014 08/26/2017 ADMIN INFLUENZA VIRUS VAC CPT-4: G0008 08/26/2017 PPPS, SUBSEQ VISIT CPT -4: G0439 10/09/2016 ADMIN INFLUENZA VIRUS VAC CPT-4: G0008 08/02/2016 FLU VACC 4 ISABEL 3 YRS PLUS IM SNOMED CT: [id number] CPT-4: 90218 08/02/2016 Vital Signs Date Vital 10/17/2018 Blood Pressure 1: 110/64 Code : 8480-6 BMI: 27.4 Code : 48210-1 Heart Rate 1 : 66 bpm Height: 5'10" SpO2: 98% Waist Measure (cm): 91 cm Weight: 191 lbs 09/04/2018 Blood Pressure 1: 106/60 Code : 8480-6 BMI: 27.4 Code : 57583-8 Heart Rate 1 : 61 bpm Height: 5'10" SpO2: 97% Weight: 191 lbs 03/05/2018 Blood Pressure 1: 110/60 Code : 8480-6 BMI: 27.8 Code : 42695-9 Heart Rate 1 : 55 bpm Height: 5'10" SpO2: 99% Weight: 194 lbs 10/15/2017 Blood Pressure 1: 124/68 Code : 8480-6 BMI: 28.0 Code : 17410-4 Heart Rate 1 : 56 bpm Height: 5'10" SpO2: 97% Waist Measure (cm): 91 cm Weight: 195 lbs 08/26/2017 Blood Pressure 1: 124/72 Code : 8480-6 BMI: 27.7 Code : 49559-3 Heart Rate 1 : 56 bpm Height: 5'10" SpO2: 97% Weight: 193 lbs 02/19/2017 Blood Pressure 1: 118/80 Code : 8480-6 BMI: 27.5 Code : 98100-2 Heart Rate 1 : 69 bpm Height: 5'10" SpO2: 98% Weight: 192 lbs 10/09/2016 Blood Pressure 1: 124/80 Code : 8480-6 BMI: 28.0 Code : 18901-8 Heart Rate 1 : 68 bpm Height: 5'10" SpO2: 97% Waist Measure (cm): 91 cm Weight: 195 lbs 08/02/2016 Blood Pressure 1: 122/70 Code : 8480-6 BMI: 27.1 Code : 05122-2 Heart Rate 1 : 49 bpm Height: 5'10" SpO2: 97% Weight: 189 lbs 01/26/2016 Blood Pressure 1: 116/72 Code : 8480-6 BMI: 28.4 Code : 11777-3 Heart Rate 1 : 58 bpm Height: 5'10" SpO2: 98% Weight: 198 lbs 07/26/2015 Blood Pressure 1: 122/72 Code : 8480-6 BMI: 27.3 Code : 58860-3 Heart Rate 1 : 50 bpm Height: 5'10" SpO2: 97% Weight: 190 lbs Functional Status No Functional Status data History of Present Illness Symptom Name Status Result Effective Date Notes Alcohol Use drinks 1 days per week 10/17/2018 None Blood Glucose (self reported) don't know 10/17/2018 None Depression (last 6 months) almost never 10/17/2018 None Depression or Hopelessness almost never 10/17/2018 None Describe Your Health very good 10/17/2018 None Exercise Habits does not exercise 10/17/2018 None Handling Stress usually renee effectively 10/17/2018 None Hemaglobin A-1C (self reported) don't know 10/17/2018 None Interaction with Friends yes 10/17/2018 None Interests & Pleasure daily 10/17/2018 None Life Satisfaction very satisfied 10/17/2018 None Motor Vehicle Safety always fastens seat belt: y 10/17/2018 None Motor Vehicle Safety drives after drinking: n 10/17/2018 None Motor Vehicle Safety rides with someone who has been drinking: n 10/17/2018 None Smoking and Tobacco Use non smoker 10/17/2018 None Social & Emotional Support always 10/17/2018 None Stress some of the time 10/17/2018 None Sun Exposure protects skin when outdoors : y 10/17/2018 None Aspirin Use yes 10/17 None Blood Pressure (self reported) low / normal (120/80) 10/17/2018 None Cholesterol (self reported) don't know 10/17/2018 None Hours of Sleep 6 05/2018 None Nutrition servings of high fiber / whole grain per day: 1 10/17/2018 None Nutrition servings of fried food / high fat foods per day: 1 10/17/2018 None Nutrition servings of vegetables / fruit per day: 2 10/17/2018 None hypertension Quality chronic 09/04/2018 None hypertension Quality primary hypertension 09/04/2018 None hypertension Quality stable 09/04/2018 None hypertension Onset and Resolution ongoing 09/04/2018 None hypertension Onset of Symptom during adulthood 09/04/2018 None hypertension Blood Pressure Values not checking blood pressure at home 09/04/2018 None hypertension Alleviating Factors medication 09/04/2018 None hypertension Pertinent Findings Denies dizziness 09/04/2018 None hypertension Pertinent Findings Denies dyspnea 09/04/2018 None hypertension Pertinent Findings Denies edema 09/04/2018 None hyperlipidemia Onset and Resolution gradual in onset 09/04/2018 None hyperlipidemia Onset of Symptom during adulthood 09/04/2018 None hyperlipidemia Significant Medications statin 09/04/2018 None hyperlipidemia Alleviating Factors medication 09/04/2018 None hyperlipidemia Exacerbating Factors diet 09/04/2018 None hypertension Quality primary hypertension 03/05/2018 None hypertension Quality stable 03/05/2018 None hypertension Onset and Resolution ongoing 03/05/2018 None hypertension Onset of Symptom during adulthood 03/05/2018 None hypertension Blood Pressure Values not checking blood pressure at home 03/05/2018 None hypertension Alleviating Factors medication 03/05/2018 None hypertension Pertinent Findings Denies dizziness 03/05/2018 None hypertension Pertinent Findings Denies dyspnea 03/05/2018 None hypertension Pertinent Findings Denies edema 03/05/2018 None hyperlipidemia Onset and Resolution gradual in onset 03/05/2018 None hyperlipidemia Onset of Symptom during adulthood 03/05/2018 None hyperlipidemia Significant Medications statin 03/05/2018 None hyperlipidemia Alleviating Factors medication 03/05/2018 None hyperlipidemia Exacerbating Factors diet 03/05/2018 None hypertension Quality chronic 03/05/2018 None cough Quality acute None cough Quality intermittent 03/05/2018 None cough Onset and Resolution ongoing 03/05/2018 None cough Onset of Symptom 1+ months ago 03/05/2018 None cough Frequency of Episodes daily 03/05/2018 None cough Pertinent Findings Denies fever 03/05/2018 None skin lesion Quality scabbed 03/05/2018 None skin lesion Quality acute 03/05/2018 None skin lesion Quality fixed 03/05/2018 None skin lesion Quality raised 03/05/2018 None skin lesion Onset and Resolution ongoing 03/05/2018 None skin lesion Location right arm 03/05/2018 None Annual Medicare Wellness Exam Alcohol Use does not drink any alcohol 10/15/2017 None Annual Medicare Wellness Exam Aspirin Use yes 10/15/2017 None Annual Medicare Wellness Exam Blood Glucose (self reported) don't know 10/15/2017 None Annual Medicare Wellness Exam Blood Pressure (self reported ) low / normal (120/80) 10/15/2017 None Annual Medicare Wellness Exam Cholesterol (self reported) don't know 10/15/2017 None Annual Medicare Wellness Exam Depression (last 6 months) almost never 10/15/2017 None Annual Medicare Wellness Exam Depression or Hopelessness almost never 10/15/2017 None Annual Medicare Wellness Exam Describe Your Health good 10/15/2017 None Annual Medicare Wellness Exam Exercise Habits does not exercise 10/15/2017 None Annual Medicare Wellness Exam Handling Stress usually renee effectively 10/15/2017 None Annual Medicare Wellness Exam Hemaglobin A-1C (self reported ) don't know 10/15/2017 None Annual Medicare Wellness Exam Hours of Sleep 7 10/15/2017 None Annual Medicare Wellness Exam Interaction with Friends yes 10/15/2017 None Annual Medicare Wellness Exam Interests & Pleasure some of the time 10/15/2017 None Annual Medicare Wellness Exam Life Satisfaction very satisfied 10/15/2017 None Annual Medicare Wellness Exam Motor Vehicle Safety always fastens seat belt: y 10/15/2017 None Annual Medicare Wellness Exam Motor Vehicle Safety drives after drinking: n 10/15/2017 None Annual Medicare Wellness Exam Motor Vehicle Safety rides with someone who has been drinking: n 2016 None Annual Medicare Wellness Exam Nutrition servings of fried food / high fat foods per day: 1 2016 None Annual Medicare Wellness Exam Nutrition servings of high fiber / whole grain per day: 1 10/15/2017 None Annual Medicare Wellness Exam Nutrition servings of vegetables / fruit per day: 2 10/15/2017 None Annual Medicare Wellness Exam Smoking and Tobacco Use non smoker 10/15/2017 None Annual Medicare Wellness Exam Social & Emotional Support always 10/15/2017 None Annual Medicare Wellness Exam Stress some of the time 10/15/2017 None Annual Medicare Wellness Exam Sun Exposure protects skin when outdoors: n 10/15/2017 None hypertension Quality stable 08/26/2017 None hypertension Onset and Resolution ongoing 08/26/2017 None hypertension Onset of Symptom during adulthood 08/26/2017 None hypertension Blood Pressure Values not checking blood pressure at home 08/26/2017 None hypertension Alleviating Factors medication 08/26/2017 None hypertension Pertinent Findings Denies dizziness 08/26/2017 None hypertension Pertinent Findings Denies dyspnea 08/26/2017 None hypertension Pertinent Findings Denies edema 08/26/2017 None hyperlipidemia Onset and Resolution gradual in onset 08/26/2017 None hyperlipidemia Onset of Symptom during adulthood 08/26/2017 None hyperlipidemia Alleviating Factors medication 08/26/2017 None hyperlipidemia Exacerbating Factors diet 08/26/2017 None hypertension Quality primary hypertension 08/26/2017 None hyperlipidemia Significant Medications statin 08/26/2017 None hypertension Onset and Resolution ongoing 02/19/2017 None hypertension Onset of Symptom during adulthood 02/19/2017 None hypertension Blood Pressure Values not checking blood pressure at home 02/19/2017 None hypertension Alleviating Factors medication 02/19/2017 None hypertension Pertinent Findings Denies dizziness 02/19/2017 None hypertension Pertinent Findings Denies dyspnea 02/19/2017 None hypertension Pertinent Findings Denies edema 02/19/2017 None hyperlipidemia Onset and Resolution gradual in onset 02/19/2017 None hyperlipidemia Onset and Resolution ongoing 02/19/2017 None hyperlipidemia Onset of Symptom during adulthood 02/19/2017 None hyperlipidemia Alleviating Factors medication 02/19/2017 None hyperlipidemia Exacerbating Factors diet 02/19/2017 None Hospital Follow Up _ Other: abdominal aortic aneurysm repair 02/19/2017 None Hospital Follow Up Quality acute 02/19/2017 None Hospital Follow Up Quality improving 02/19/2017 None Hospital Follow Up Onset and Resolution sudden in onset 02/19/2017 None Hospital Follow Up Onset of Symptom 13 days ago 02/19/2017 None hypertension Quality stable 02/19/2017 None Annual Medicare Wellness Exam Alcohol Use does not drink any alcohol 10/09/2016 None Annual Medicare Wellness Exam Aspirin Use yes 10/09/2016 None Annual Medicare Wellness Exam Blood Glucose (self reported) don't know 10/09/2016 None Annual Medicare Wellness Exam Blood Pressure (self reported ) low / normal (120/80) 10/09/2016 None Annual Medicare Wellness Exam Cholesterol (self reported) desireable (below 200) 10/09/2016 None Annual Medicare Wellness Exam Depression (last 6 months) almost never 10/09/2016 None Annual Medicare Wellness Exam Depression or Hopelessness almost never 10/09/2016 None Annual Medicare Wellness Exam Describe Your Health fair 10/09/2016 None Annual Medicare Wellness Exam Exercise Habits does not exercise 10/09/2016 None Annual Medicare Wellness Exam Handling Stress usually renee effectively 10/09/2016 None Annual Medicare Wellness Exam Hemaglobin A-1C (self reported ) don't know 10/09/2016 None Annual Medicare Wellness Exam Hours of Sleep 7 10/09/2016 None Annual Medicare Wellness Exam Interaction with Friends yes 10/09/2016 None Annual Medicare Wellness Exam Interests & Pleasure some of the time 10/09/2016 None Annual Medicare Wellness Exam Life Satisfaction satisfied 10/09/2016 None Annual Medicare Wellness Exam Motor Vehicle Safety always fastens seat belt: y 10/09/2016 None Annual Medicare Wellness Exam Motor Vehicle Safety drives after drinking: n 10/09/2016 None Annual Medicare Wellness Exam Motor Vehicle Safety rides with someone who has been drinking: n 2015 None Annual Medicare Wellness Exam Nutrition servings of fried food / high fat foods per day: 1 2015 None Annual Medicare Wellness Exam Nutrition servings of high fiber / whole grain per day: 2 10/09/2016 None Annual Medicare Wellness Exam Nutrition servings of vegetables / fruit per day: 3 10/09/2016 None Annual Medicare Wellness Exam Smoking and Tobacco Use non smoker 10/09/2016 None Annual Medicare Wellness Exam Social & Emotional Support always 10/09/2016 None Annual Medicare Wellness Exam Stress some of the time 10/09/2016 None Annual Medicare Wellness Exam Sun Exposure protects skin when outdoors: n 10/09/2016 None hypertension Onset and Resolution ongoing 08/02/2016 None hypertension Onset of Symptom during adulthood 08/02/2016 None hypertension Blood Pressure Values not checking blood pressure at home 08/02/2016 None hypertension Alleviating Factors medication 08/02/2016 None hypertension Pertinent Findings Denies dizziness 08/02/2016 None hypertension Pertinent Findings Denies dyspnea 08/02/2016 None hypertension Pertinent Findings Denies edema 08/02/2016 None hyperlipidemia Onset and Resolution ongoing 08/02/2016 None hyperlipidemia Onset of Symptom during adulthood 08/02/2016 None hyperlipidemia Alleviating Factors medication 08/02/2016 None hyperlipidemia Exacerbating Factors diet 08/02/2016 None hyperlipidemia Onset and Resolution gradual in onset 08/02/2016 None urinary incontinence Quality acute 08/02/2016 None urinary incontinence Onset and Resolution ongoing 08/02/2016 None urinary incontinence Onset of Symptom 1 months ago 08/02/2016 since he had his prostate removed hypertension Blood Pressure Values not checking blood pressure at home 01/26/2016 None hypertension Pertinent Findings Denies decreased energy 01/26/2016 None hypertension Pertinent Findings Denies dizziness 01/26/2016 None hypertension Onset and Resolution ongoing 01/26/2016 None hypertension Onset of Symptom _ years ago 01/26/2016 None hypertension Alleviating Factors medication 01/26/2016 None hypertension Pertinent Findings Denies dyspnea 01/26/2016 None hypertension Pertinent Findings Denies edema 01/26/2016 None hyperlipidemia Onset and Resolution ongoing 01/26/2016 None hyperlipidemia Alleviating Factors medication 01/26/2016 None hyperlipidemia Exacerbating Factors diet 01/26/2016 None hypertension Onset of Symptom during adulthood 01/26/2016 None hyperlipidemia Onset of Symptom during adulthood 01/26/2016 None nocturia Onset and Resolution gradual in onset 07/26/2015 None nocturia Onset of Symptom 2 years ago 07/26/2015 None nocturia Severity mild 07/26/2015 None nocturia Timing of Episodes at night 07/26/2015 None nocturia Pertinent Findings Denies bladder pain 07/26/2015 None nocturia Alleviating Factors decreasing fluid intake before bedtime 07/26/2015 None nocturia Frequency of Episodes decreasing 07/26/2015 None nocturia Onset and Resolution resolved 07/26/2015 None hypertension Onset of Symptom 2 years ago 07/26/2015 None hypertension Blood Pressure Values not checking blood pressure at home 07/26/2015 None hypertension Pertinent Findings Denies dizziness 07/26/2015 None hypertension Pertinent Findings Denies decreased energy 07/26/2015 None Advance Directives No Advance Directive data Encounters Encounter Performer Location Codes Date ([id number]) 54310 EST. PATIENT, LEVEL IV Diagnosis: Essential (primary) hypertension[ICD10: I10] Diagnosis: Mixed hyperlipidemia[ICD10: E78.2] Diagnosis: Changes in skin texture[ICD10: R23.4] Ewa Melchor MD, [facility] CPT-4: 96833 09/04/2018 ([id number]) 96474 EST. 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 PATIENT, LEVEL IV Diagnosis: Essential (primary) hypertension[ICD10: I10] Diagnosis: Mixed hyperlipidemia[ICD10: E78.2] Diagnosis: Encounter for immunization[ICD10: Z23] [facility] CPT-4: 00859 08/26/2017 ([id number]) 12170 EST. PATIENT, LEVEL IV Diagnosis: Essential (primary) hypertension[ICD10: I10] Diagnosis: Mixed hyperlipidemia[ICD10: E78.2] [facility] CPT-4: 23967 02/19/2017 ([id number]) 41157 EST. PATIENT, LEVEL IV Diagnosis: Essential (primary) hypertension[ICD10: I10] Diagnosis: Mixed hyperlipidemia[ICD10: E78.2] Ewa Melchor MD, [facility] CPT-4: 39914 08/02/2016 ([id number]) 43537 EST. PATIENT, LEVEL IV Diagnosis: Essential (primary) hypertension[ICD10: I10] Diagnosis: Mixed hyperlipidemia[ICD10: E78.2] Ewa Melchor MD, [facility] CPT-4: 45186 01/26/2016 ([id number]) OFFICE VISIT, NEW - LEVEL 4 Diagnosis: ESSENTIAL HYPERTENSION[ICD9: 401.9] Diagnosis: HYPERLIPIDEMIA[ICD9: 272.4] Diagnosis: NOCTURIA[ICD9: 788.43] Ewa Melchor MD, [facility] CPT-4: 83831 07/26/2015 Plan of Care Planned Activity Notes Codes Status Date Visit Plan: Medicare Exam - today we discussed the patients past history, immunizations, preventative exams/evaluations - colonoscopy, fecal occult blood testing, routine labs for renal function, glucose, cholesterol, osteoporosis evaluations, cardiovascular testing and cancer screenings. We have also discussed mental health and the signs/symptoms of depression. The patient was advised of home safety evaluations and the need to make sure that as the aging process continues, we need to be aware of different ways to make the home a safer place to reside. The patient has also been counseled that exercise is necessary - and of utmost importance as we age to help decrease fall risk and to maintain independece in the home. Today we discussed the need for the patient to create paperwork for Advanced directives as well as for the patient to provide this office with a copy of her DOPA paperwork for health care surrogate. 10/17/2018 Patient Education: Patient Medication Summary Completed 10/17/2018 Visit Plan: Hypertension - well controlled - continue with current medications, continue with no added salt diet. Pt has been encouraged to exercise daily. The pt has been advised to call the office if there are any acute concerns about change in blood pressure readings at home. Hyperlipidemia - pt has been counseled about appropriate diet, exercise, and need for low fat food choices. I have discussed the need for the patient to take medications as prescribed. If the patient has negative side effects from the medication, they are to CALL the office and not abruptly discontinue the medication without discussion with a practitioner in the office. We will check labs in 3-6 months for follow up on the patient's chronic medical problem and to assure normal liver response to medications. Nodule of skin on lower left lip - discussed with pt - if it does not heal then we will have to refer patient to Dr. Gerber for removal. 09/04/2018 Appointment: Ewa Melchor WPtel: [phone] [facility] (15 min) Moderate 09/04/2018 Patient Education: Patient Medication Summary Completed 09/04/2018 Patient Education: Hypertension Completed 09/04/2018 Referral: Wily Caruso [address] [facility] Patient's informed. Referral info faxed. Completed 03/25/2018 Visit Plan: Hypertension - well controlled - continue with current medications, continue with no added salt diet. Pt has been encouraged to exercise daily. The pt has been advised to call the office if there are any acute concerns about change in blood pressure readings at home. Hyperlipidemia - pt has been counseled about appropriate diet, exercise, and need for low fat food choices. I have discussed the need for the patient to take medications as prescribed. If the patient has negative side effects from the medication, they are to CALL the office and not abruptly discontinue the medication without discussion with a practitioner in the office. We will check labs in 3-6 months for follow up on the patient's chronic medical problem and to assure normal liver response to medications. Skin lesion on right lateral arm - referral to Dr Caruso for removal. 03/05/2018 Appointment: Ewa Melchor WPtel: [phone] [facility] (15 min) Moderate 03/05/2018 Patient Education: Patient Medication Summary Completed 03/05/2018 Care Plan: Referral Order SNOMED-CT : [id number] Pending 03/05/2018 Visit Plan: Medicare Exam - today we discussed the patients past history, immunizations, preventative exams/evaluations - colonoscopy, fecal occult blood testing, routine labs for renal function, glucose, cholesterol, osteoporosis evaluations, cardiovascular testing and cancer screenings. We have also discussed mental health and the signs/symptoms of depression. The patient was advised of home safety evaluations and the need to make sure that as the aging process continues, we need to be aware of different ways to make the home a safer place to reside. The patient has also been counseled that exercise is necessary - and of utmost importance as we age to help decrease fall risk and to maintain independece in the home. Today we discussed the need for the patient to create paperwork for Advanced directives as well as for the patient to provide this office with a copy of her DOPA paperwork for health care surrogate. 10/15/2017 Appointment: Graciela Quintanilla WPtel: [id number] [facility] - Annual Wellness Visit 10/15/2017 Patient Education: Patient Medication Summary Completed 10/15/2017 Visit Plan: Hypertension - well controlled - continue with current medications, continue with no added salt diet. Pt has been encouraged to exercise daily. The pt has been advised to call the office if there are any acute concerns about change in blood pressure readings at home. Hyperlipidemia - pt has been counseled about appropriate diet, exercise, and need for low fat food choices. I have discussed the need for the patient to take medications as prescribed. If the patient has negative side effects from the medication, they are to CALL the office and not abruptly discontinue the medication without discussion with a practitioner in the office. We will check labs in 3-6 months for follow up on the patient's chronic medical problem and to assure normal liver response to medications. Flu shot given today 08/26/2017 Appointment: Ewa Melchor WPtel: [facility] (15 min) Moderate 08/26/2017 Patient Education: Patient Medication Summary Completed 08/26/2017 Appointment: Ewa Melchor [facility]Ptel: [phone] [facility] (15 min) Moderate 08/19/2017 Appointment: Ewa Melchor WPtel: [facility] (15 min) Moderate 02/20/2017 Visit Plan: Hypertension - well controlled - continue with current medications, continue with no added salt diet. Pt has been encouraged to exercise daily. The pt has been advised to call the office if there are any acute concerns about change in blood pressure readings at home. Hyperlipidemia - pt has been counseled about appropriate diet, exercise, and need for low fat food choices. I have discussed the need for the patient to take medications as prescribed. If the patient has negative side effects from the medication, they are to CALL the office and not abruptly discontinue the medication without discussion with a practitioner in the office. We will check labs in 3-6 months for follow up on the patient's chronic medical problem and to assure normal liver response to medications. 02/19/2017 Appointment: Ewa Melchor WPtel: [phone] [facility] (30 min) Complex 02/19/2017 Patient Education: Patient Medication Summary Completed 02/19/2017 Patient Education: Hypertension Completed 02/19/2017 Appointment: Ewa Melchor WPtel: [phone] [facility] (15 min) Moderate 02/06/2017 Visit Plan: Medicare Exam - today we discussed the patients past history, immunizations, preventative exams/evaluations - colonoscopy, fecal occult blood testing, routine labs for renal function, glucose, cholesterol, osteoporosis evaluations, cardiovascular testing and cancer screenings. We have also discussed mental health and the signs/symptoms of depression. The patient was advised of home safety evaluations and the need to make sure that as the aging process continues, we need to be aware of different ways to make the home a safer place to reside. The patient has also been counseled that exercise is necessary - and of utmost importance as we age to help decrease fall risk and to maintain independece in the home. Today we discussed the need for the patient to create paperwork for Advanced directives as well as for the patient to provide this office with a copy of her DOPA paperwork for health care surrogate. 10/09/2016 Appointment: Graciela Quintanilla WPtel: [phone] [phone] [facility] - Annual Wellness Visit 10/09/2016 Patient Education: Patient Medication Summary Completed 10/09/2016 Visit Plan: Hypertension - well controlled - continue with current medications, continue with no added salt diet. Pt has been encouraged to exercise daily. The pt has been advised to call the office if there are any acute concerns about change in blood pressure readings at home. Hyperlipidemia - pt has been counseled about appropriate diet, exercise, and need for low fat food choices. I have discussed the need for the patient to take medications as prescribed. If the patient has negative side effects from the medication, they are to CALL the office and not abruptly discontinue the medication without discussion with a practitioner in the office. We will check labs in 3-6 months for follow up on the patient's chronic medical problem and to assure normal liver response to medications. 08/02/2016 Appointment: Ewa Melchor WPtel: [phone] [facility] (15 min) Moderate 08/02/2016 Patient Education: Patient Medication Summary Completed 08/02/2016 [facility] [facility] Ref[facility] Completed 02/16/2016 Care Plan: Referral Order SNOMED-CT : [id number] Ordered 01/29/2016 Visit Plan: Hypertension - well controlled - continue with current medications, continue with no added salt diet. Pt has been encouraged to exercise daily. The pt has been advised to call the office if there are any acute concerns about change in blood pressure readings at home. referral to dr. teran Hyperlipidemia - pt has been counseled about appropriate diet, exercise, and need for low fat food choices. I have discussed the need for the patient to take medications as prescribed. If the patient has negative side effects from the medication, they are to CALL the office and not abruptly discontinue the medication without discussion with a practitioner in the office. We will check labs in 3-6 months for follow up on the patient's chronic medical problem and to assure normal liver response to medications. 01/26/2016 Appointment: Ewa Melchor WPtel: [phone] [facility] (15 min) Moderate 01/26/2016 Patient Education: Patient Medication Summary Completed 01/26/2016 Patient Education: Hypertension Completed 01/26/2016 Visit Plan: Hypertension - well controlled - continue with current medications, continue with no added salt diet. Pt has been encouraged to exercise daily. The pt has been advised to call the office if there are any acute concerns about change in blood pressure readings at home. Hyperlipidemia - pt has been counseled about appropriate diet, exercise, and need for low fat food choices. I have discussed the need for the patient to take medications as prescribed. If the patient has negative side effects from the medication, they are to CALL the office and not abruptly discontinue the medication without discussion with a practitioner in the office. We will check labs in 3-6 months for follow up on the patient's chronic medical problem and to assure normal liver response to medications. Nocturia - pt refused a prostate check by rectal exam today, but he agreed to a PSA check today - he states that he will have his prostate checked by the doctor who does his rectal exam. Note should be made that Mr. Gamboa has a strong family history of multiple different types of cancer, and he has had some urinary symptoms as well as an increase in his PSA over the past several years from 2 to 6.1. He understands his risks, but still refuses the exam. The patient had a colonoscope in 2011 with tubular adenomas present on all biopsy sites. Dr. Evans will be contacted for repeat referral for colonoscope in the next few months. 07/26/2015 Appointment: Ewa Melchor WPtel: [facility] [place] New Patient 07/26/2015 Patient Education: Patient Medication Summary Completed 07/26/2015 Patient Education: Hypertension Completed 07/26/2015 Referral: Chuy Evans Referral Relationship Referral: Acosta Teran [address] [facility] D [id number] [place] Referral Appointment Requested Referral: Wily Caruso [address] [facility] Referral Appointment Requested Instructions Comment co-enzyme Q10 - (Quinol) - take daily to help decrease the muscle aches from the statins . Hypertension - well controlled - continue with current medications, continue with no added salt diet. Pt has been encouraged to exercise daily. The pt has been advised to call the office if there are any acute concerns about change in blood pressure readings at home. referral to dr. teran Hyperlipidemia - pt has been counseled about appropriate diet, exercise, and need for low fat food choices. I have discussed the need for the patient to take medications as prescribed. If the patient has negative side effects from the medication, they are to CALL the office and not abruptly discontinue the medication without discussion with a practitioner in the office. We will check labs in 3-6 months for follow up on the patient's chronic medical problem and to assure normal liver response to medications. . Hypertension - well controlled - continue with current medications, continue with no added salt diet. Pt has been encouraged to exercise daily. The pt has been advised to call the office if there are any acute concerns about change in blood pressure readings at home. Hyperlipidemia - pt has been counseled about appropriate diet, exercise, and need for low fat food choices. I have discussed the need for the patient to take medications as prescribed. If the patient has negative side effects from the medication, they are to CALL the office and not abruptly discontinue the medication without discussion with a practitioner in the office. We will check labs in 3-6 months for follow up on the patient's chronic medical problem and to assure normal liver response to medications. . Medicare Exam - today we discussed the patients past history, immunizations, preventative exams/evaluations - colonoscopy, fecal occult blood testing, routine labs for renal function, glucose, cholesterol, osteoporosis evaluations, cardiovascular testing and cancer screenings. We have also discussed mental health and the signs/symptoms of depression. The patient was advised of home safety evaluations and the need to make sure that as the aging process continues, we need to be aware of different ways to make the home a safer place to reside. The patient has also been counseled that exercise is necessary - and of utmost importance as we age to help decrease fall risk and to maintain independece in the home. Today we discussed the need for the patient to create paperwork for Advanced directives as well as for the patient to provide this office with a copy of her DOPA paperwork for health care surrogate. . Hypertension - well controlled - continue with current medications, continue with no added salt diet. Pt has been encouraged to exercise daily. The pt has been advised to call the office if there are any acute concerns about change in blood pressure readings at home. Hyperlipidemia - pt has been counseled about appropriate diet, exercise, and need for low fat food choices. I have discussed the need for the patient to take medications as prescribed. If the patient has negative side effects from the medication, they are to CALL the office and not abruptly discontinue the medication without discussion with a practitioner in the office. We will check labs in 3-6 months for follow up on the patient's chronic medical problem and to assure normal liver response to medications. . Hypertension - well controlled - continue with current medications, continue with no added salt diet. Pt has been encouraged to exercise daily. The pt has been advised to call the office if there are any acute concerns about change in blood pressure readings at home. Hyperlipidemia - pt has been counseled about appropriate diet, exercise, and need for low fat food choices. I have discussed the need for the patient to take medications as prescribed. If the patient has negative side effects from the medication, they are to CALL the office and not abruptly discontinue the medication without discussion with a practitioner in the office. We will check labs in 3-6 months for follow up on the patient's chronic medical problem and to assure normal liver response to medications. Flu shot given today . Hypertension - well controlled - continue with current medications, continue with no added salt diet. Pt has been encouraged to exercise daily. The pt has been advised to call the office if there are any acute concerns about change in blood pressure readings at home. Hyperlipidemia - pt has been counseled about appropriate diet, exercise, and need for low fat food choices. I have discussed the need for the patient to take medications as prescribed. If the patient has negative side effects from the medication, they are to CALL the office and not abruptly discontinue the medication without discussion with a practitioner in the office. We will check labs in 3-6 months for follow up on the patient's chronic medical problem and to assure normal liver response to medications. Nodule of skin on lower left lip - discussed with pt - if it does not heal then we will have to refer patient to Dr. Gerber for removal. . Medicare Exam - today we discussed the patients past history, immunizations, preventative exams/evaluations - colonoscopy, fecal occult blood testing, routine labs for renal function, glucose, cholesterol, osteoporosis evaluations, cardiovascular testing and cancer screenings. We have also discussed mental health and the signs/symptoms of depression. The patient was advised of home safety evaluations and the need to make sure that as the aging process continues, we need to be aware of different ways to make the home a safer place to reside. The patient has also been counseled that exercise is necessary - and of utmost importance as we age to help decrease fall risk and to maintain independece in the home. Today we discussed the need for the patient to create paperwork for Advanced directives as well as for the patient to provide this office with a copy of her DOPA paperwork for health care surrogate. . Hypertension - well controlled - continue with current medications, continue with no added salt diet. Pt has been encouraged to exercise daily. The pt has been advised to call the office if there are any acute concerns about change in blood pressure readings at home. Hyperlipidemia - pt has been counseled about appropriate diet, exercise, and need for low fat food choices. I have discussed the need for the patient to take medications as prescribed. If the patient has negative side effects from the medication, they are to CALL the office and not abruptly discontinue the medication without discussion with a practitioner in the office. We will check labs in 3-6 months for follow up on the patient's chronic medical problem and to assure normal liver response to medications. Skin lesion on right lateral arm - referral to Dr Caruso for removal. . Hypertension - well controlled - continue with current medications, continue with no added salt diet. Pt has been encouraged to exercise daily. The pt has been advised to call the office if there are any acute concerns about change in blood pressure readings at home. Hyperlipidemia - pt has been counseled about appropriate diet, exercise, and need for low fat food choices. I have discussed the need for the patient to take medications as prescribed. If the patient has negative side effects from the medication, they are to CALL the office and not abruptly discontinue the medication without discussion with a practitioner in the office. We will check labs in 3-6 months for follow up on the patient's chronic medical problem and to assure normal liver response to medications. Nocturia - pt refused a prostate check by rectal exam today, but he agreed to a PSA check today - he states that he will have his prostate checked by the doctor who does his rectal exam. Note should be made that Mr. Gamboa has a strong family history of multiple different types of cancer, and he has had some urinary symptoms as well as an increase in his PSA over the past several years from 2 to 6.1. He understands his risks, but still refuses the exam. The patient had a colonoscope in 2011 with tubular adenomas present on all biopsy sites. Dr. Evans will be contacted for repeat referral for colonoscope in the next few months. . Medicare Exam - today we discussed the patients past history, immunizations, preventative exams/evaluations - colonoscopy, fecal occult blood testing, routine labs for renal function, glucose, cholesterol, osteoporosis evaluations, cardiovascular testing and cancer screenings. We have also discussed mental health and the signs/symptoms of depression. The patient was advised of home safety evaluations and the need to make sure that as the aging process continues, we need to be aware of different ways to make the home a safer place to reside. The patient has also been counseled that exercise is necessary - and of utmost importance as we age to help decrease fall risk and to maintain independece in the home. Today we discussed the need for the patient to create paperwork for Advanced directives as well as for the patient to provide this office with a copy of her DOPA paperwork for health care surrogate.
--- OUTSIDE RECORDS SUMMARY | 2019-01-20 09:53 | XMS REPORT | CCD ---
Author Author [facility] Organization [facility] Address [address] [place] [address] Phone Care Team Providers Care Port Purser Name Role Phone PP Unavailable CCM Unavailable Summary Purpose Interface Exchange Insurance Providers Payer name Policy type / Coverage type Covered republican ID Effective Begin Date Effective End Date WPS Medicare Part B Medicare Part B [id number] Unknown [place] [employer] Medicare Part B [id number] Unknown Family history Son Diagnosis Age At Onset Asthma Unknown Grandfather Diagnosis Age At Onset Heart Attack Unknown Mother Diagnosis Age At Onset Cancer Unknown Ovarian cancer Unknown Father Diagnosis Age At Onset Colon cancer Unknown Social History Social History Element Codes Description Effective Dates Tobacco history SNOMED CT: 6375889 Quit less than 5 years ago Quit [...] 25 mg tablet,extended release 24 hr RxNorm: 577716 TAKE 1 TABLET EVERY DAY 05/09/2018 05/03/2019 Active atorvastatin 40 mg tablet RxNorm: 162477 TAKE 1 TABLET EVERY DAY 03/14/2018 03/08/2019 Active atorvastatin 40 mg tablet RxNorm: 572226 TAKE 1 TABLET EVERY DAY 03/21/2017 03/13/2018 Inactive metoprolol succinate ER 25 mg tablet,extended release 24 hr RxNorm: 898425 1 Tablet(s) PO daily 03/21/2017 03/15/2018 Inactive metoprolol succinate ER 25 mg tablet,extended release 24 hr RxNorm: 316343 1 Tablet(s) PO daily 04/10/2016 04/03/2017 Inactive metoprolol succinate ER 25 mg tablet,extended release 24 hr RxNorm: 134621 1 Tablet(s) PO daily 01/20/2016 04/09/2016 Inactive atorvastatin 40 mg tablet RxNorm: 622205 1 Tablet(s) PO daily 01/20/2016 03/20/2017 Inactive atorvastatin 40 mg tablet RxNorm: 900485 1 Tablet(s) PO daily 01/20/2016 03/04/2018 Inactive atorvastatin 40 mg tablet RxNorm: 055406 1 Tablet(s) PO daily 01/20/2016 03/04/2018 Inactive metoprolol succinate ER 25 mg tablet,extended release 24 hr RxNorm: 535133 1 Tablet(s) PO daily 07/26/2015 01/19/2016 Inactive multivitamin tablet RxNorm: 1 Tablet(s) PO daily No Start Date Active aspirin 81 mg tablet RxNorm: 344313 1 Tablet(s) PO daily No Start Date Active Fish Oil 900 mg (253 mg-647 mg) capsule,delayed release RxNorm: 2 Capsule(s) PO daily No Start Date Active atorvastatin 40 mg tablet RxNorm: 084286 1 Tablet(s) PO daily No Start Date [...] Ord30 C/HDL 3.4 Ratio 03/05/2018 Comp Metabolic Mbt790 NA 137 mEq/L 03/05/2018 Comp Metabolic Ylk380 K 4.1 mEq/L 03/05/2018 Comp Metabolic Ord170 CL 100 mEq/L 03/05/2018 Comp Metabolic Qxz981 CO2 31.0 mEq/L 03/05/2018 Comp Metabolic Fru972 ANION GAP 10 03/05/2018 Comp Metabolic Xpq993 GLUCOSE 90 mg/dL 03/05/2018 Comp Metabolic Xmb390 Creat 1.0 mg/dL 03/05/2018 Comp Metabolic Nfs441 eGFR 75 ml/min/1.73m2 03/05/2018 Comp Metabolic Adj291 BUN 14 mg/dL 03/05/2018 Comp Metabolic Mlp630 B/C Ratio 13.6 Ratio 03/05/2018 Comp Metabolic Zuc455 CALCIUM 8.9 mg/dL 03/05/2018 Comp Metabolic Jez852 ALK PHOS 71 U/L 03/05/2018 Comp Metabolic Guf695 AST(SGOT) 21 U/L 03/05/2018 Comp Metabolic Tjm509 ALT(SGPT) 17 U/L 03/05/2018 Comp Metabolic Zsd831 BILI T 1.7 mg/dL 03/05/2018 Comp Metabolic Bmz718 ALBUMIN 4.2 g/dL 03/05/2018 Comp Metabolic Uzo895 TPRO 6.6 g/dL 03/05/2018 Comp Metabolic Ola444 GLOB 2.4 g/dL 03/05/2018 Comp Metabolic Kmt604 A/G Ratio 1.8 Ratio 03/05/2018 Comp Metabolic Mgl179 Osmo 274 mOsmo 03/05/2018 Cbc With Differential [...] 31.1 % 03/05/2018 Cbc With Differential Ord2 [place]% 12.1 % 03/05/2018 Cbc With Differential Ord2 [...] 2.19 K/ul 03/05/2018 Cbc With Differential Ord2 [place] ABS# 0.9 K/ul 03/05/2018 Cbc With Differential Ord2 Eos ABS# 0.2 K/ul 03/05/2018 Cbc With Differential Ord2 Baso ABS# 0.0 K/ul 03/05/2018 Tsh Ord6 hTSH II 2.01 uIU/mL 08/26/2017 Comp Metabolic Ggy494 NA 141 mEq/L 08/26/2017 Comp Metabolic Jpq127 K 4.4 mEq/L 08/26/2017 Comp Metabolic Xtc881 CL 103 mEq/L 08/26/2017 Comp Metabolic Wpj141 CO2 30.0 mEq/L 08/26/2017 Comp Metabolic Udm792 ANION GAP 12 08/26/2017 Comp Metabolic Bsp898 GLUCOSE 100 mg/dL 08/26/2017 Comp Metabolic Cef169 Creat 1.0 mg/dL 08/26/2017 Comp Metabolic Ovj131 eGFR 76 ml/min/1.73m2 08/26/2017 Comp Metabolic Rfe853 BUN 12 mg/dL 08/26/2017 Comp Metabolic Spe949 B/C Ratio 11.8 Ratio 08/26/2017 Comp Metabolic Gjx043 CALCIUM 9.5 mg/dL 08/26/2017 Comp Metabolic Wsr033 ALK PHOS 75 U/L 08/26/2017 Comp Metabolic Rex684 AST(SGOT) 19 U/L 08/26/2017 Comp Metabolic Jok376 ALT(SGPT) 17 U/L 08/26/2017 Comp Metabolic Hgu906 BILI T 1.3 mg/dL 08/26/2017 Comp Metabolic Kfk052 ALBUMIN 4.4 g/dL 08/26/2017 Comp Metabolic Uiu492 TPRO 6.9 g/dL 08/26/2017 Comp Metabolic Wet532 GLOB 2.5 g/dL 08/26/2017 Comp Metabolic Hds734 A/G Ratio 1.8 Ratio 08/26/2017 Comp Metabolic Yag965 Osmo 281 mOsmo 08/26/2017 Cbc With Differential [...] 29.9 pg 08/26/2017 Cbc With Differential Ord2 [place]% 10.4 % 08/26/2017 Cbc With Differential Ord2 [...] 2.16 K/ul 08/26/2017 Cbc With Differential Ord2 [place] ABS# 0.8 K/ul 08/26/2017 Cbc With Differential [...] 34.8 % 08/02/2016 Cbc With Differential Ord2 [place]% 11.0 % 08/02/2016 Cbc With Differential Ord2 [...] 2.38 K/ul 08/02/2016 Cbc With Differential Ord2 [place] ABS# 0.8 K/ul 08/02/2016 Cbc With Differential Ord2 Eos ABS# 0.3 K/ul 08/02/2016 Cbc With Differential Ord2 Baso ABS# 0.0 K/ul 08/02/2016 Tsh Ord6 hTSH II 1.20 uIU/mL 08/02/2016 Comp Metabolic Zxn511 NA 138 mEq/L 08/02/2016 Comp Metabolic Tyc906 K 4.6 mEq/L 08/02/2016 Comp Metabolic Rsg523 CL 104 mEq/L 08/02/2016 Comp Metabolic Hwl083 CO2 29.0 mEq/L 08/02/2016 Comp Metabolic Jto314 ANION GAP 10 08/02/2016 Comp Metabolic Ptl920 GLUCOSE 99 mg/dL 08/02/2016 Comp Metabolic Uoj933 Creat 1.1 mg/dL 08/02/2016 Comp Metabolic Tny033 eGFR 73 ml/min/1.73m2 08/02/2016 Comp Metabolic Vvl537 BUN 18 mg/dL 08/02/2016 Comp Metabolic Mhs395 B/C Ratio 17.0 Ratio 08/02/2016 Comp Metabolic Wmy529 CALCIUM 9.4 mg/dL 08/02/2016 Comp Metabolic Kot892 ALK PHOS 71 U/L 08/02/2016 Comp Metabolic Uqf889 AST(SGOT) 19 U/L 08/02/2016 Comp Metabolic Rzy174 ALT(SGPT) 16 U/L 08/02/2016 Comp Metabolic Nyh724 BILI T 1.5 mg/dL 08/02/2016 Comp Metabolic Mqu973 ALBUMIN 4.3 g/dL 08/02/2016 Comp Metabolic Ubj807 TPRO 6.9 g/dL 08/02/2016 Comp Metabolic Hry783 GLOB 2.6 g/dL 08/02/2016 Comp Metabolic Zno881 A/G Ratio 1.7 Ratio 08/02/2016 Comp Metabolic Rkg777 Osmo 278 mOsmo 08/02/2016 Lipid Ord30 CHOL 126 mg/dL 08/02/2016 Lipid Ord30 HDL 32.0 mg/dl 08/02/2016 Lipid Ord30 TRIG 161 mg/dL 08/02/2016 Lipid Ord30 LDL 62 mg/dL 08/02/2016 Lipid Ord30 C/HDL 3.9 Ratio 08/02/2016 Comp Metabolic Sah011 NA 137 mEq/L 01/27/2016 Comp Metabolic Dic101 K 4.1 mEq/L 01/27/2016 Comp Metabolic Dme005 CL 99 mEq/L 01/27/2016 Comp Metabolic Lhr220 CO2 32.0 mEq/L 01/27/2016 Comp Metabolic Haq922 ANION GAP 10 01/27/2016 Comp Metabolic Uyh456 GLUCOSE 92 mg/dL 01/27/2016 Comp Metabolic Wxy333 Creat 1.1 mg/dL 01/27/2016 Comp Metabolic Vkb371 eGFR 72 ml/min/1.73m2 01/27/2016 Comp Metabolic Gie201 BUN 16 mg/dL 01/27/2016 Comp Metabolic Thm381 B/C Ratio 15.0 Ratio 01/27/2016 Comp Metabolic Kpb019 CALCIUM 9.6 mg/dL 01/27/2016 Comp Metabolic Eqt698 ALK PHOS 82 U/L 01/27/2016 Comp Metabolic Lum003 AST(SGOT) 21 U/L 01/27/2016 Comp Metabolic Dfm742 ALT(SGPT) 20 U/L 01/27/2016 Comp Metabolic Jqt256 BILI T 1.8 mg/dL 01/27/2016 Comp Metabolic Glm223 ALBUMIN 4.3 g/dL 01/27/2016 Comp Metabolic Xqs156 TPRO 6.8 g/dL 01/27/2016 Comp Metabolic Ytd987 GLOB 2.5 g/dL 01/27/2016 Comp Metabolic Fha610 A/G Ratio 1.8 Ratio 01/27/2016 Comp Metabolic Yyw030 Osmo 275 mOsmo 01/27/2016 Tsh Ord6 hTSH [...] 29.3 pg 01/27/2016 Cbc With Differential Ord2 [place]% 11.1 % 01/27/2016 Cbc With Differential Ord2 MCHC 32.9 pg 01/27/2016 Cbc With Differential Ord2 Eos% 3.7 % 01/27/2016 Cbc With Differential Ord2 Baso% 0.5 % 01/27/2016 Cbc With Differential Ord2 PLT 247 K/ul 01/27/2016 Cbc With Differential Ord2 RDW 12.8 % 01/27/2016 Cbc With Differential Ord2 Neut ABS# 3.42 K/ul 01/27/2016 Cbc With Differential Ord2 Lymph ABS# 2.14 K/ul 01/27/2016 Cbc With Differential Ord2 [place] ABS# 0.7 K/ul 01/27/2016 Cbc With Differential [...] Ord30 C/HDL 3.5 Ratio 07/26/2015 Comp Metabolic Kjk383 NA 135 mEq/L 07/26/2015 Comp Metabolic Vlx543 K 4.3 mEq/L 07/26/2015 Comp Metabolic Dxi417 CL 101 mEq/L 07/26/2015 Comp Metabolic Fof904 CO2 31.0 mEq/L 07/26/2015 Comp Metabolic Cqj171 ANION GAP 7 07/26/2015 Comp Metabolic Xic277 GLUCOSE 96 mg/dL 07/26/2015 Comp Metabolic Kru340 Creat 1.0 mg/dL 07/26/2015 Comp Metabolic Qxh235 eGFR 76 ml/min/1.73m2 07/26/2015 Comp Metabolic Qbf514 BUN 14 mg/dL 07/26/2015 Comp Metabolic Rds737 B/C Ratio 13.6 Ratio 07/26/2015 Comp Metabolic Bzw406 CALCIUM 9.3 mg/dL 07/26/2015 Comp Metabolic Yle158 ALK PHOS 77 U/L 07/26/2015 Comp Metabolic Unn994 AST(SGOT) 22 U/L 07/26/2015 Comp Metabolic Xzz057 ALT(SGPT) 19 U/L 07/26/2015 Comp Metabolic Tym878 BILI T 1.7 mg/dL 07/26/2015 Comp Metabolic Pcd646 ALBUMIN 4.2 g/dL 07/26/2015 Comp Metabolic Yww013 TPRO 6.6 g/dL 07/26/2015 Comp Metabolic Gbx079 GLOB 2.4 g/dL 07/26/2015 Comp Metabolic Rnc363 A/G Ratio 1.8 Ratio 07/26/2015 Comp Metabolic Oeo348 Osmo 270 mOsmo 07/26/2015 Cbc With Differential [...] normal 10/17/2018 None Full Exam - General 1994 Ears/Nose/Throat lips/teeth/gingiva Overall: benign lips 10/17/2018 None [...] VACC NO PRSV 3 YRS+ IM CPT-4: 41973 08/26/2017 FLU VAC NO PRSV 4 ISABEL 3 YRS+ CPT-4: 90281 08/26/2017 IIV4 VACC NO PRSV 3 YRS+ IM CPT-4: 41979 08/26/2017 ADMIN INFLUENZA VIRUS VAC CPT-4: G0008 08/26/2017 PPPS, SUBSEQ VISIT CPT -4: G0439 10/09/2016 ADMIN INFLUENZA VIRUS VAC CPT-4: G0008 08/02/2016 FLU VACC 4 ISABEL 3 YRS PLUS IM SNOMED CT: 37930526 CPT-4: 47813 08/02/2016 Vital Signs Date Vital 10/17/2018 Blood Pressure 1: 110/64 Code : 8480-6 BMI: 27.4 Code : 91161-4 Heart Rate 1 : 66 bpm Height: 5'10" SpO2: 98% Waist Measure (cm): 91 cm Weight: 191 lbs 09/04/2018 Blood Pressure 1: 106/60 Code : 8480-6 BMI: 27.4 Code : 07858-9 Heart Rate 1 : 61 bpm Height: 5'10" SpO2: 97% Weight: 191 lbs 03/05/2018 Blood Pressure 1: 110/60 Code : 8480-6 BMI: 27.8 Code : 57236-5 Heart Rate 1 : 55 bpm Height: 5'10" SpO2: 99% Weight: 194 lbs 10/15/2017 Blood Pressure 1: 124/68 Code : 8480-6 BMI: 28.0 Code : 47577-2 Heart Rate 1 : 56 bpm Height: 5'10" SpO2: 97% Waist Measure (cm): 91 cm Weight: 195 lbs 08/26/2017 Blood Pressure 1: 124/72 Code : 8480-6 BMI: 27.7 Code : 66609-0 Heart Rate 1 : 56 bpm Height: 5'10" SpO2: 97% Weight: 193 lbs 02/19/2017 Blood Pressure 1: 118/80 Code : 8480-6 BMI: 27.5 Code : 82389-3 Heart Rate 1 : 69 bpm Height: 5'10" SpO2: 98% Weight: 192 lbs 10/09/2016 Blood Pressure 1: 124/80 Code : 8480-6 BMI: 28.0 Code : 57595-1 Heart Rate 1 : 68 bpm Height: 5'10" SpO2: 97% Waist Measure (cm): 91 cm Weight: 195 lbs 08/02/2016 Blood Pressure 1: 122/70 Code : 8480-6 BMI: 27.1 Code : 94336-3 Heart Rate 1 : 49 bpm Height: 5'10" SpO2: 97% Weight: 189 lbs 01/26/2016 Blood Pressure 1: 116/72 Code : 8480-6 BMI: 28.4 Code : 09579-2 Heart Rate 1 : 58 bpm Height: 5'10" SpO2: 98% Weight: 198 lbs 07/26/2015 Blood Pressure 1: 122/72 Code : 8480-6 BMI: 27.3 Code : 86866-0 Heart Rate 1 : 50 bpm Height: [...] data Encounters Encounter Performer Location Codes Date ( 29749 EST. PATIENT, LEVEL IV Diagnosis: Essential (primary) hypertension[ICD10: I10] Diagnosis: Mixed hyperlipidemia[ICD10: E78.2] Diagnosis: Changes in skin texture[ICD10: R23.4] Ewa Melchor MD, [facility] CPT-4: 91777 09/04/2018 ([id number]) 87705 EST. 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 PATIENT, LEVEL IV Diagnosis: Essential (primary) hypertension[ICD10: I10] Diagnosis: Mixed hyperlipidemia[ICD10: E78.2] Diagnosis: Encounter for immunization[ICD10: Z23] Ewa Melchor MD, [facility] CPT-4: 03836 08/26/2017 ([id number]) 56790 EST. PATIENT, LEVEL IV Diagnosis: Essential (primary) hypertension[ICD10: I10] Diagnosis: Mixed hyperlipidemia[ICD10: E78.2] Ewa Melchor MD, [facility] CPT-4: 39171 02/19/2017 ([id number]) 27612 EST. PATIENT, LEVEL IV Diagnosis: Essential (primary) hypertension[ICD10: I10] Diagnosis: Mixed hyperlipidemia[ICD10: E78.2] Ewa Melchor MD, [facility] CPT-4: 41674 08/02/2016 ([id number]) 52163 EST. PATIENT, LEVEL IV Diagnosis: Essential (primary) hypertension[ICD10: I10] Diagnosis: Mixed hyperlipidemia[ICD10: E78.2] [facility] CPT-4: 92374 01/26/2016 ([id number]) OFFICE VISIT, NEW - LEVEL 4 Diagnosis: ESSENTIAL HYPERTENSION[ICD9: 401.9] Diagnosis: HYPERLIPIDEMIA[ICD9: 272.4] Diagnosis: NOCTURIA[ICD9: 788.43] [facility] CPT-4: 97919 07/26/2015 Plan of Care Planned Activity Notes [...] for removal. 09/04/2018 [facility] [phone] [facility] ([facility] min) Moderate 09/04/2018 Patient Education: Patient Medication Summary Completed 09/04/2018 Patient Education: Hypertension Completed 09/04/2018 Referral: Wily Caruso [address] [facility] Patient's informed. Referral info faxed. Completed 03/25/2018 [...] for removal. 03/05/2018 [facility] [phone] [facility] (15 min) Moderate 03/05/2018 Patient Education: Patient Medication Summary Completed 03/05/2018 Care Plan: Referral Order SNOMED-CT : [id number] Pending 03/05/2018 Visit Plan: Medicare Exam - [...] care surrogate. 10/15/2017 Appointment[phone] [phone] [facility] - Annual Wellness Visit 10/15/2017 Patient Education: [...] given today 08/26/2017 Appointment: [facility] [phone] [facility] (15 min) Moderate 08/26/2017 Patient Education: Patient Medication Summary Completed 08/26/2017 [facility]ment: [facility] [phone] [facility] (15 min) Moderate 08/19/2017 Appointment: Ewa Melchor WPtel: [facility] (15 min) Moderate 02/20/2017 Visit Plan: Hypertension [...] to medications. 02/19/2017 App[facility]ment: [facility] [phone] [facility] (30 min) Complex 02/19/2017 Patient Education: Patient Medication Summary Completed 02/19/2017 Patient Education: Hypertension Completed 02/19/2017 [facility]ment: [facility] [phone] [facility] (15 min) Moderate 02/06/2017 Visit Plan: Medicare [...] care surrogate. 10/09/2016 Appointment: [facility] Quint[facility] [phone] [phone] [facility] - Annual Wellness Visit 10/09/2016 Patient Education: [...] to medications. 08/02/2016 Appointment: Ewa Melchor WPtel: [phone] [facility] (15 min) Moderate 08/02/2016 Patient Education: Patient Medication Summary Completed 08/02/2016 Referral: Acosta Teran [address] [facility] Referral Completed 02/16/2016 Care Plan: Referral Order SNOMED-CT : [id number] Ordered 01/29/2016 Visit Plan: Hypertension - well [...] to medications. 01/26/2016 [facility] [phone] [facility] (15 min) Moderate 01/26/2016 Patient Education: Patient [...] few months. 07/26/2015 Appointment: Ewa Melchor WPtel: [facility] [place] ([place]) New Patient 07/26/2015 Patient Education: Patient Medication Summary Completed 07/26/2015 Patient Education: Hypertension Completed 07/26/2015 Referral: Chuy Evans Referral Relationship Referral: Acosta Teran [address] [facility] [address] [id number] [place] Referral Appointment Requested Referral: Wily Caruso [address] [facility] Referral Appointment Requested Instructions Comment co-enzyme Q10 [...]
[2019-01-20] MEDS ORDERED: NS IV 1000 ML 3,000 ML ONE (09:54)
[2019-01-20] MEDS ORDERED: HEParin 1000 UNIT/ML (10ML VIAL) FOR BOLUS ONE (09:54)
[2019-01-20] MEDS ORDERED: LIDOCAINE 1% INJ 20 ML 20 ML VIAL ONE (09:54)
--- OUTSIDE RECORDS SUMMARY | 2019-01-20 09:55 | XMS REPORT | CCD ---
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 Name Role Phone PP Unavailable CCM Unavailable Summary Purpose Interface Exchange Insurance Providers Payer name Policy type / Coverage type Covered libertarian ID Effective Begin Date Effective End Date WPS Medicare Part B Medicare Part B [id number] Unknown [employer] Medicare Part B [id number] Unknown Family history Son Diagnosis Age At Onset Asthma Unknown Grandfather Diagnosis Age At Onset Heart Attack Unknown Mother Diagnosis Age At Onset Cancer Unknown Ovarian cancer Unknown Father Diagnosis Age At Onset Colon cancer Unknown Social History Social History Element Codes Description Effective Dates Tobacco history SNOMED CT: 4775123 Quit less than 5 years ago Quit [...] 25 mg tablet,extended release 24 hr RxNorm: 376969 TAKE 1 TABLET EVERY DAY 05/09/2018 05/03/2019 Active atorvastatin 40 mg tablet RxNorm: 091225 TAKE 1 TABLET EVERY DAY 03/14/2018 03/08/2019 Active atorvastatin 40 mg tablet RxNorm: 138505 TAKE 1 TABLET EVERY DAY 03/21/2017 03/13/2018 Inactive metoprolol succinate ER 25 mg tablet,extended release 24 hr RxNorm: 840054 1 Tablet(s) PO daily 03/21/2017 03/15/2018 Inactive metoprolol succinate ER 25 mg tablet,extended release 24 hr RxNorm: 330195 1 Tablet(s) PO daily 04/10/2016 04/03/2017 Inactive metoprolol succinate ER 25 mg tablet,extended release 24 hr RxNorm: 995621 1 Tablet(s) PO daily 01/20/2016 04/09/2016 Inactive atorvastatin 40 mg tablet RxNorm: 906570 1 Tablet(s) PO daily 01/20/2016 03/20/2017 Inactive atorvastatin 40 mg tablet RxNorm: 627945 1 Tablet(s) PO daily 01/20/2016 03/04/2018 Inactive atorvastatin 40 mg tablet RxNorm: 555128 1 Tablet(s) PO daily 01/20/2016 03/04/2018 Inactive metoprolol succinate ER 25 mg tablet,extended release 24 hr RxNorm: 182770 1 Tablet(s) PO daily 07/26/2015 01/19/2016 Inactive multivitamin tablet RxNorm: 1 Tablet(s) PO daily No Start Date Active aspirin 81 mg tablet RxNorm: 263739 1 Tablet(s) PO daily No Start Date Active Fish Oil 900 mg (253 mg-647 mg) capsule,delayed release RxNorm: 2 Capsule(s) PO daily No Start Date Active atorvastatin 40 mg tablet RxNorm: 770964 1 Tablet(s) PO daily No Start Date [...] Ord30 C/HDL 3.4 Ratio 03/05/2018 Comp Metabolic Mpq578 NA 137 mEq/L 03/05/2018 Comp Metabolic Eos130 K 4.1 mEq/L 03/05/2018 Comp Metabolic Kki056 CL 100 mEq/L 03/05/2018 Comp Metabolic Oze340 CO2 31.0 mEq/L 03/05/2018 Comp Metabolic Fvb588 ANION GAP 10 03/05/2018 Comp Metabolic Kma195 GLUCOSE 90 mg/dL 03/05/2018 Comp Metabolic Joj982 Creat 1.0 mg/dL 03/05/2018 Comp Metabolic Ymb552 eGFR 75 ml/min/1.73m2 03/05/2018 Comp Metabolic Yog296 BUN 14 mg/dL 03/05/2018 Comp Metabolic Qbw531 B/C Ratio 13.6 Ratio 03/05/2018 Comp Metabolic Cya871 CALCIUM 8.9 mg/dL 03/05/2018 Comp Metabolic Gbb625 ALK PHOS 71 U/L 03/05/2018 Comp Metabolic Gbv130 AST(SGOT) 21 U/L 03/05/2018 Comp Metabolic Dav407 ALT(SGPT) 17 U/L 03/05/2018 Comp Metabolic Bxn192 BILI T 1.7 mg/dL 03/05/2018 Comp Metabolic Rbs520 ALBUMIN 4.2 g/dL 03/05/2018 Comp Metabolic Epk516 TPRO 6.6 g/dL 03/05/2018 Comp Metabolic Hqh700 GLOB 2.4 g/dL 03/05/2018 Comp Metabolic Tcw021 A/G Ratio 1.8 Ratio 03/05/2018 Comp Metabolic Dkr869 Osmo 274 mOsmo 03/05/2018 Cbc With Differential Ord2 WBC 7.04 K/ul 03/05/2018 Cbc With Differential Ord2 RBC 4.91 M/ul 03/05/2018 Cbc With Differential Ord2 HGB 14.5 g/dl 03/05/2018 Cbc With Differential Ord2 HCT 44.0 % 03/05/2018 Cbc With Differential Ord2 Neut% 54.1 % 03/05/2018 Cbc With Differential Ord2 MCV 89.6 fl 03/05/2018 Cbc With Differential Ord2 Lymph% 31.1 % 03/05/2018 Cbc With Differential Ord2 MCH 29.5 pg 03/05/2018 Cbc With Differential Ord2 Talbot% 12.1 % 03/05/2018 Cbc With Differential Ord2 MCHC 33.0 pg 03/05/2018 Cbc With Differential Ord2 Eos% 2.3 % 03/05/2018 Cbc With Differential Ord2 PLT 232 K/ul 03/05/2018 Cbc With Differential Ord2 Baso% 0.4 % 03/05/2018 Cbc With Differential Ord2 RDW 12.7 % 03/05/2018 Cbc With Differential Ord2 Neut ABS# 3.81 K/ul 03/05/2018 Cbc With Differential Ord2 Lymph ABS# 2.19 K/ul 03/05/2018 Cbc With Differential Ord2 Talbot ABS# 0.9 K/ul 03/05/2018 Cbc With Differential Ord2 Eos ABS# 0.2 K/ul 03/05/2018 Cbc With Differential Ord2 Baso ABS# 0.0 K/ul 03/05/2018 Tsh Ord6 hTSH II 2.01 uIU/mL 08/26/2017 Comp Metabolic Zvl127 NA 141 mEq/L 08/26/2017 Comp Metabolic Znk874 K 4.4 mEq/L 08/26/2017 Comp Metabolic Pbj103 CL 103 mEq/L 08/26/2017 Comp Metabolic You081 CO2 30.0 mEq/L 08/26/2017 Comp Metabolic Hnq046 ANION GAP 12 08/26/2017 Comp Metabolic Ypj666 GLUCOSE 100 mg/dL 08/26/2017 Comp Metabolic Fzx685 Creat 1.0 mg/dL 08/26/2017 Comp Metabolic Ael182 eGFR 76 ml/min/1.73m2 08/26/2017 Comp Metabolic Uhc805 BUN 12 mg/dL 08/26/2017 Comp Metabolic Pya307 B/C Ratio 11.8 Ratio 08/26/2017 Comp Metabolic Gpl180 CALCIUM 9.5 mg/dL 08/26/2017 Comp Metabolic Zlv301 ALK PHOS 75 U/L 08/26/2017 Comp Metabolic Djf200 AST(SGOT) 19 U/L 08/26/2017 Comp Metabolic Jqq932 ALT(SGPT) 17 U/L 08/26/2017 Comp Metabolic Qsf534 BILI T 1.3 mg/dL 08/26/2017 Comp Metabolic Byz482 ALBUMIN 4.4 g/dL 08/26/2017 Comp Metabolic Bjr215 TPRO 6.9 g/dL 08/26/2017 Comp Metabolic Qmo518 GLOB 2.5 g/dL 08/26/2017 Comp Metabolic Ags695 A/G Ratio 1.8 Ratio 08/26/2017 Comp Metabolic Ixx297 Osmo 281 mOsmo 08/26/2017 Cbc With Differential Ord2 WBC 7.40 K/ul 08/26/2017 Cbc With Differential Ord2 RBC 4.95 M/ul 08/26/2017 Cbc With Differential Ord2 HGB 14.8 g/dl 08/26/2017 Cbc With Differential Ord2 HCT 44.5 % 08/26/2017 Cbc With Differential Ord2 Neut% 58.1 % 08/26/2017 Cbc With Differential Ord2 MCV 89.9 fl 08/26/2017 Cbc With Differential Ord2 Lymph% 29.2 % 08/26/2017 Cbc With Differential Ord2 MCH 29.9 pg 08/26/2017 Cbc With Differential Ord2 Talbot% 10.4 % 08/26/2017 Cbc With Differential Ord2 MCHC 33.3 pg 08/26/2017 Cbc With Differential Ord2 Eos% 2.0 % 08/26/2017 Cbc With Differential Ord2 PLT 237 K/ul 08/26/2017 Cbc With Differential Ord2 Baso% 0.3 % 08/26/2017 Cbc With Differential Ord2 RDW 12.5 % 08/26/2017 Cbc With Differential Ord2 Neut ABS# 4.30 K/ul 08/26/2017 Cbc With Differential Ord2 Lymph ABS# 2.16 K/ul 08/26/2017 Cbc With Differential Ord2 [place] ABS# 0.8 K/ul 08/26/2017 Cbc With Differential [...] 13.6 g/dl 08/02/2016 Cbc With Differential Ord2 HCT 41.3 % 08/02/2016 Cbc With Differential Ord2 Neut% 49.8 % 08/02/2016 Cbc With Differential Ord2 MCV 90.2 fl 08/02/2016 Cbc With Differential Ord2 Lymph% 34.8 % 08/02/2016 Cbc With Differential Ord2 MCH 29.7 pg 08/02/2016 Cbc With Differential Ord2 Talbot% 11.0 % 08/02/2016 Cbc With Differential Ord2 MCHC 32.9 pg 08/02/2016 Cbc With Differential Ord2 Eos% 4.1 % 08/02/2016 Cbc With Differential Ord2 PLT 224 K/ul 08/02/2016 Cbc With Differential Ord2 Baso% 0.3 % 08/02/2016 Cbc With Differential Ord2 RDW 12.8 % 08/02/2016 Cbc With Differential Ord2 Neut ABS# 3.41 K/ul 08/02/2016 Cbc With Differential Ord2 Lymph ABS# 2.38 K/ul 08/02/2016 Cbc With Differential Ord2 [place] ABS# 0.8 K/ul 08/02/2016 Cbc With Differential Ord2 Eos ABS# 0.3 K/ul 08/02/2016 Cbc With Differential Ord2 Baso ABS# 0.0 K/ul 08/02/2016 Tsh Ord6 hTSH II 1.20 uIU/mL 08/02/2016 Comp Metabolic Kpq364 NA 138 mEq/L 08/02/2016 Comp Metabolic Ncg298 K 4.6 mEq/L 08/02/2016 Comp Metabolic Rei022 CL 104 mEq/L 08/02/2016 Comp Metabolic Gtj334 CO2 29.0 mEq/L 08/02/2016 Comp Metabolic Ahr937 ANION GAP 10 08/02/2016 Comp Metabolic Wiy531 GLUCOSE 99 mg/dL 08/02/2016 Comp Metabolic Rvo534 Creat 1.1 mg/dL 08/02/2016 Comp Metabolic Gxb845 eGFR 73 ml/min/1.73m2 08/02/2016 Comp Metabolic Tpo818 BUN 18 mg/dL 08/02/2016 Comp Metabolic Pjw264 B/C Ratio 17.0 Ratio 08/02/2016 Comp Metabolic Ujq854 CALCIUM 9.4 mg/dL 08/02/2016 Comp Metabolic Ckj009 ALK PHOS 71 U/L 08/02/2016 Comp Metabolic Ljy447 AST(SGOT) 19 U/L 08/02/2016 Comp Metabolic Vpf976 ALT(SGPT) 16 U/L 08/02/2016 Comp Metabolic Tmb468 BILI T 1.5 mg/dL 08/02/2016 Comp Metabolic Kji226 ALBUMIN 4.3 g/dL 08/02/2016 Comp Metabolic Mdw261 TPRO 6.9 g/dL 08/02/2016 Comp Metabolic Hdf703 GLOB 2.6 g/dL 08/02/2016 Comp Metabolic Nsr098 A/G Ratio 1.7 Ratio 08/02/2016 Comp Metabolic Yft116 Osmo 278 mOsmo 08/02/2016 Lipid Ord30 CHOL 126 mg/dL 08/02/2016 Lipid Ord30 HDL 32.0 mg/dl 08/02/2016 Lipid Ord30 TRIG 161 mg/dL 08/02/2016 Lipid Ord30 LDL 62 mg/dL 08/02/2016 Lipid Ord30 C/HDL 3.9 Ratio 08/02/2016 Comp Metabolic Fys734 NA 137 mEq/L 01/27/2016 Comp Metabolic Plu406 K 4.1 mEq/L 01/27/2016 Comp Metabolic Kpl046 CL 99 mEq/L 01/27/2016 Comp Metabolic Qfi793 CO2 32.0 mEq/L 01/27/2016 Comp Metabolic Tzt614 ANION GAP 10 01/27/2016 Comp Metabolic Wyj352 GLUCOSE 92 mg/dL 01/27/2016 Comp Metabolic Jke754 Creat 1.1 mg/dL 01/27/2016 Comp Metabolic Vql339 eGFR 72 ml/min/1.73m2 01/27/2016 Comp Metabolic Mfv503 BUN 16 mg/dL 01/27/2016 Comp Metabolic Wfn655 B/C Ratio 15.0 Ratio 01/27/2016 Comp Metabolic Yms273 CALCIUM 9.6 mg/dL 01/27/2016 Comp Metabolic Bup235 ALK PHOS 82 U/L 01/27/2016 Comp Metabolic Zzc486 AST(SGOT) 21 U/L 01/27/2016 Comp Metabolic Ciw996 ALT(SGPT) 20 U/L 01/27/2016 Comp Metabolic Nip556 BILI T 1.8 mg/dL 01/27/2016 Comp Metabolic Yvf399 ALBUMIN 4.3 g/dL 01/27/2016 Comp Metabolic Frk351 TPRO 6.8 g/dL 01/27/2016 Comp Metabolic Rwv792 GLOB 2.5 g/dL 01/27/2016 Comp Metabolic Zey097 A/G Ratio 1.8 Ratio 01/27/2016 Comp Metabolic Wbe373 Osmo 275 mOsmo 01/27/2016 Tsh Ord6 hTSH [...] 29.3 pg 01/27/2016 Cbc With Differential Ord2 Talbot% 11.1 % 01/27/2016 Cbc With Differential Ord2 MCHC 32.9 pg 01/27/2016 Cbc With Differential Ord2 Eos% 3.7 % 01/27/2016 Cbc With Differential Ord2 PLT 247 K/ul 01/27/2016 Cbc With Differential Ord2 Baso% 0.5 % 01/27/2016 Cbc With Differential Ord2 RDW 12.8 % 01/27/2016 Cbc With Differential Ord2 Neut ABS# 3.42 K/ul 01/27/2016 Cbc With Differential Ord2 Lymph ABS# 2.14 K/ul 01/27/2016 Cbc With Differential Ord2 [place] ABS# 0.7 K/ul 01/27/2016 Cbc With Differential [...] Ord30 C/HDL 3.5 Ratio 07/26/2015 Comp Metabolic Led562 NA 135 mEq/L 07/26/2015 Comp Metabolic Xtp619 K 4.3 mEq/L 07/26/2015 Comp Metabolic Ezr822 CL 101 mEq/L 07/26/2015 Comp Metabolic Btf400 CO2 31.0 mEq/L 07/26/2015 Comp Metabolic Ckd610 ANION GAP 7 07/26/2015 Comp Metabolic Mrr970 GLUCOSE 96 mg/dL 07/26/2015 Comp Metabolic Xcw099 Creat 1.0 mg/dL 07/26/2015 Comp Metabolic Vvq697 eGFR 76 ml/min/1.73m2 07/26/2015 Comp Metabolic Caq507 BUN 14 mg/dL 07/26/2015 Comp Metabolic Wsj134 B/C Ratio 13.6 Ratio 07/26/2015 Comp Metabolic Kjf674 CALCIUM 9.3 mg/dL 07/26/2015 Comp Metabolic Euo076 ALK PHOS 77 U/L 07/26/2015 Comp Metabolic Tqm652 AST(SGOT) 22 U/L 07/26/2015 Comp Metabolic Ewm119 ALT(SGPT) 19 U/L 07/26/2015 Comp Metabolic Yey038 BILI T 1.7 mg/dL 07/26/2015 Comp Metabolic Iex574 ALBUMIN 4.2 g/dL 07/26/2015 Comp Metabolic Zcs535 TPRO 6.6 g/dL 07/26/2015 Comp Metabolic Bdz699 GLOB 2.4 g/dL 07/26/2015 Comp Metabolic Qyr442 A/G Ratio 1.8 Ratio 07/26/2015 Comp Metabolic Hxr652 Osmo 270 mOsmo 07/26/2015 Cbc With Differential [...] VACC NO PRSV 3 YRS+ IM CPT-4: 52693 08/26/2017 FLU VAC NO PRSV 4 ISABEL 3 YRS+ CPT-4: 22580 08/26/2017 IIV4 VACC NO PRSV 3 YRS+ IM CPT-4: 92712 08/26/2017 ADMIN INFLUENZA VIRUS VAC CPT-4: G0008 08/26/2017 PPPS, SUBSEQ VISIT CPT -4: G0439 10/09/2016 ADMIN INFLUENZA VIRUS VAC CPT-4: G0008 08/02/2016 FLU VACC 4 ISABEL 3 YRS PLUS IM SNOMED CT: 66408651 CPT-4: 54022 08/02/2016 Vital Signs Date Vital 10/17/2018 Blood Pressure 1: 110/64 Code : 8480-6 BMI: 27.4 Code : 05682-6 Heart Rate 1 : 66 bpm Height: 5'10" SpO2: 98% Waist Measure (cm): 91 cm Weight: 191 lbs 09/04/2018 Blood Pressure 1: 106/60 Code : 8480-6 BMI: 27.4 Code : 75576-0 Heart Rate 1 : 61 bpm Height: 5'10" SpO2: 97% Weight: 191 lbs 03/05/2018 Blood Pressure 1: 110/60 Code : 8480-6 BMI: 27.8 Code : 74373-7 Heart Rate 1 : 55 bpm Height: 5'10" SpO2: 99% Weight: 194 lbs 10/15/2017 Blood Pressure 1: 124/68 Code : 8480-6 BMI: 28.0 Code : 59705-7 Heart Rate 1 : 56 bpm Height: 5'10" SpO2: 97% Waist Measure (cm): 91 cm Weight: 195 lbs 08/26/2017 Blood Pressure 1: 124/72 Code : 8480-6 BMI: 27.7 Code : 56534-6 Heart Rate 1 : 56 bpm Height: 5'10" SpO2: 97% Weight: 193 lbs 02/19/2017 Blood Pressure 1: 118/80 Code : 8480-6 BMI: 27.5 Code : 09513-7 Heart Rate 1 : 69 bpm Height: 5'10" SpO2: 98% Weight: 192 lbs 10/09/2016 Blood Pressure 1: 124/80 Code : 8480-6 BMI: 28.0 Code : 35965-2 Heart Rate 1 : 68 bpm Height: 5'10" SpO2: 97% Waist Measure (cm): 91 cm Weight: 195 lbs 08/02/2016 Blood Pressure 1: 122/70 Code : 8480-6 BMI: 27.1 Code : 70378-7 Heart Rate 1 : 49 bpm Height: 5'10" SpO2: 97% Weight: 189 lbs 01/26/2016 Blood Pressure 1: 116/72 Code : 8480-6 BMI: 28.4 Code : 62126-5 Heart Rate 1 : 58 bpm Height: 5'10" SpO2: 98% Weight: 198 lbs 07/26/2015 Blood Pressure 1: 122/72 Code : 8480-6 BMI: 27.3 Code : 91852-1 Heart Rate 1 : 50 bpm Height: [...] Encounters Encounter Performer Location Codes Date ( 75032 EST. PATIENT, LEVEL IV Diagnosis: Essential (primary) hypertension[ICD10: I10] Diagnosis: Mixed hyperlipidemia[ICD10: E78.2] Diagnosis: Changes in skin texture[ICD10: R23.4] Ewa Melchor MD, [facility] CPT-4: 78368 09/04/2018 ([id number]) 46177 EST. 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 PATIENT, LEVEL IV Diagnosis: Essential (primary) hypertension[ICD10: I10] Diagnosis: Mixed hyperlipidemia[ICD10: E78.2] Diagnosis: Encounter for immunization[ICD10: Z23] Ewa Melchor MD, [facility] CPT-4: 08505 08/26/2017 ([id number]) 28813 EST. PATIENT, LEVEL IV Diagnosis: Essential (primary) hypertension[ICD10: I10] Diagnosis: Mixed hyperlipidemia[ICD10: E78.2] Ewa Melchor MD, [facility] CPT-4: 68936 02/19/2017 ([id number]) 91838 EST. PATIENT, LEVEL IV Diagnosis: Essential (primary) hypertension[ICD10: I10] Diagnosis: Mixed hyperlipidemia[ICD10: E78.2] Ewa Melchor MD, [facility] CPT-4: 69032 08/02/2016 ([id number]) 02882 EST. PATIENT, LEVEL IV Diagnosis: Essential (primary) hypertension[ICD10: I10] Diagnosis: Mixed hyperlipidemia[ICD10: E78.2] [facility] CPT-4: 16018 01/26/2016 ([id number]) OFFICE VISIT, NEW - LEVEL 4 Diagnosis: ESSENTIAL HYPERTENSION[ICD9: 401.9] Diagnosis: HYPERLIPIDEMIA[ICD9: 272.4] Diagnosis: NOCTURIA[ICD9: 788.43] [facility] CPT-4: 14677 07/26/2015 Plan of Care Planned Activity Notes [...] removal. 09/04/2018 [facility] [phone] [facility] (15 min) Moderate 09/04/2018 Patient Education: Patient Medication Summary Completed 09/04/2018 Patient Education: Hypertension Completed 09/04/2018 Referral: Wily Caruso [address] [facility] [place], [facility] Patient's informed. Referral info faxed. Completed 03/25/2018 [...] removal. 03/05/2018 [facility]ment[facility] [phone] [facility] [address] (15 min) Moderate 03/05/2018 Patient Education: Patient Medication Summary Completed 03/05/2018 Care Plan: Referral Order SNOMED-CT : [id number] Pending 03/05/2018 Visit Plan: Medicare Exam - [...] surrogate. 10/15/2017 Appointment[facility] [phone] [phone] [facility] - Annual Wellness Visit 10/15/2017 Patient [...] given today 08/26/2017 App[facility]ment: [facility] [phone] [facility] [address] [facility] (15 min) Moderate 08/26/2017 Patient Education: Patient Medication Summary Completed 08/26/2017 Appointment: [facility] [phone] [facility] [address] [facility] (15 min) Moderate 08/19/2017 Appointment: Ewa Melchor WPtel: [facility] (15 min) Moderate 02/20/2017 Visit Plan: [...] to medications. 02/19/2017 Appointment: [facility] [phone] [facility] [address] [facility] (30 min) Complex 02/19/2017 Patient Education: Patient Medication Summary Completed 02/19/2017 Patient Education: Hypertension Completed 02/19/2017 App[facility]ment: [facility]el[facility] [phone] [facility] (15 min) Moderate 02/06/2017 Visit Plan: Medicare [...] care surrogate. 10/09/2016 Appointment: [facility] Quint[facility] [phone] [phone] [facility] - Annual Wellness Visit 10/09/2016 Patient [...] medications. 08/02/2016 Appointment: Ewa Melchor WPtel: [phone] [facility] (15 min) Moderate 08/02/2016 Patient Education: Patient Medication Summary Completed 08/02/2016 Referral: Acosta Teran [address] [facility] Referral Completed 02/16/2016 Care Plan: Referral Order SNOMED-CT : [id number] Ordered 01/29/2016 Visit Plan: Hypertension - well [...] medications. 01/26/2016 Appointment: [facility] [phone] [facility] [address] (15 min) Moderate 01/26/2016 Patient Education: Patient [...] months. 07/26/2015 Appointment: Ewa Melchor WPtel: [facility] [place]) New Patient 07/26/2015 Patient Education: Patient Medication Summary Completed 07/26/2015 Patient Education: Hypertension Completed 07/26/2015 Referral: Chuy Evans Referral Relationship Referral: Acosta Teran [address] [facility] [id number] [place] Referral Appointment Requested Referral: Wily Caruso [address] [facility] [place] Referral Appointment Requested Instructions Comment co-enzyme Q10 [...]
--- OUTSIDE RECORDS SUMMARY | 2019-01-20 09:56 | XMS REPORT | CCD ---
Author Author [facility] Organization [facility] Address [address] [place] [address] Phone Care Team Providers Care Eligibility Worker Name Role Phone PP Unavailable CCM Unavailable Summary Purpose Interface Exchange Insurance Providers Payer name Policy type / Coverage type Covered constitution party ID Effective Begin Date Effective End Date WPS Medicare Part B Medicare Part B [id number] Unknown [employer] Medicare Part B [id number] Unknown Family history Son Diagnosis Age At Onset Asthma Unknown Grandfather Diagnosis Age At Onset Heart Attack Unknown Mother Diagnosis Age At Onset Cancer Unknown Ovarian cancer Unknown Father Diagnosis Age At Onset Colon cancer Unknown Social History Social History Element Codes Description Effective Dates Tobacco history SNOMED CT: 6800824 Quit less than 5 years ago Quit [...] Codes Condition Status Onset Date Resolved Date Changes in skin texture ICD-9: 782.8 ICD-10: R23.4 Active 09/04/2018 Unknown Essential (primary) hypertension ICD-9: 401.9 ICD-10: I10 Active 07/25/2015 Unknown Mixed hyperlipidemia ICD-9: 272.4 ICD-10: E78.2 Active 07/25/2015 Unknown 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, 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 ICD-10: C44.692 Active 03/05/2018 Unknown Encounter for general adult medical examination with abnormal findings ICD-9: V70.0 ICD-10: Z00.01 Active 10/15/2017 Unknown Encounter for immunization ICD-9: V04.81 ICD-10: Z23 Active 08/01/2016 Unknown Encounter for general adult medical examination without abnormal findings ICD-9: V70.9 ICD-10: Z00.00 Active 10/08/2016 Unknown Hyperlipidemia Unknown Active 07/26/2015 Unknown Hypertension Unknown Active 07/26/2015 Unknown ESSENTIAL HYPERTENSION ICD-9: 401.9 Active 07/25/2015 Unknown HYPERLIPIDEMIA ICD-9: 272.4 Active 07/25/2015 Unknown NOCTURIA ICD-9: 788.43 Active 07/25/2015 Unknown Problems Condition Codes Effective Dates Condition Status Changes in skin texture ICD-9: 782.8 ICD-10: R23.4 09/04/2018 Active Essential (primary) hypertension ICD-9: 401.9 ICD-10: I10 07/25/2015 Active Mixed hyperlipidemia ICD-9: 272.4 ICD-10: E78.2 07/25/2015 Active 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, 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 ICD-10: C44.692 03/05/2018 Active Encounter for general adult medical examination with abnormal findings ICD-9: V70.0 ICD-10: Z00.01 10/15/2017 Active Encounter for immunization ICD-9: V04.81 ICD-10: [...] 25 mg tablet,extended release 24 hr RxNorm: 766961 TAKE 1 TABLET EVERY DAY 05/09/2018 05/03/2019 Active atorvastatin 40 mg tablet RxNorm: 382633 TAKE 1 TABLET EVERY DAY 03/14/2018 03/08/2019 Active atorvastatin 40 mg tablet RxNorm: 648825 TAKE 1 TABLET EVERY DAY 03/21/2017 03/13/2018 Inactive metoprolol succinate ER 25 mg tablet,extended release 24 hr RxNorm: 032226 1 Tablet(s) PO daily 03/21/2017 03/15/2018 Inactive metoprolol succinate ER 25 mg tablet,extended release 24 hr RxNorm: 666007 1 Tablet(s) PO daily 04/10/2016 04/03/2017 Inactive metoprolol succinate ER 25 mg tablet,extended release 24 hr RxNorm: 385652 1 Tablet(s) PO daily 01/20/2016 04/09/2016 Inactive atorvastatin 40 mg tablet RxNorm: 823966 1 Tablet(s) PO daily 01/20/2016 03/20/2017 Inactive atorvastatin 40 mg tablet RxNorm: 657338 1 Tablet(s) PO daily 01/20/2016 03/04/2018 Inactive atorvastatin 40 mg tablet RxNorm: 389150 1 Tablet(s) PO daily 01/20/2016 03/04/2018 Inactive metoprolol succinate ER 25 mg tablet,extended release 24 hr RxNorm: 353422 1 Tablet(s) PO daily 07/26/2015 01/19/2016 Inactive multivitamin tablet RxNorm: 1 Tablet(s) PO daily No Start Date Active aspirin 81 mg tablet RxNorm: 162412 1 Tablet(s) PO daily No Start Date Active Fish Oil 900 mg (253 mg-647 mg) capsule,delayed release RxNorm: 2 Capsule(s) PO daily No Start Date Active atorvastatin 40 mg tablet RxNorm: 729070 1 Tablet(s) PO daily No Start Date 01/19/2016 Inactive Medication Administered No Medication Administered data Immunizations Vaccine Codes Date Status Influenza CVX: 141 08/26/2017 completed Influenza CVX: 141 08/02/2016 completed Assessments Condition Codes Effective Dates Changes in skin texture ICD-10: R23.4 ICD-9: 782.8 09/04/2018 Mixed hyperlipidemia ICD-10: E78.2 ICD-9: 272.4 09/04/2018 Essential (primary) hypertension ICD-10: I10 ICD-9: 401.9 09/04/2018 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, including shoulder ICD-10: C44.692 ICD-9: 173.69 03/05/2018 Encounter for general adult medical examination with abnormal findings ICD-10: Z00.01 ICD-9: V70.0 10/15/2017 Encounter for immunization ICD-10: Z23 ICD-9: V04.81 08/26/2017 Encounter for general adult medical examination without abnormal findings ICD-10: Z00.00 ICD-9: V70.9 10/09/2016 NOCTURIA ICD-9: 788.43 07/26/2015 HYPERLIPIDEMIA ICD-9: 272.4 07/26/2015 ESSENTIAL HYPERTENSION ICD-9: 401.9 07/26 Reason For Visit Reason For Visit Effective Dates Notes hypertension 09/04/2018 hypertension 03/05/2018 Annual Medicare Wellness [...] Ord30 C/HDL 3.4 Ratio 03/05/2018 Comp Metabolic Lga749 NA 137 mEq/L 03/05/2018 Comp Metabolic Cmn572 K 4.1 mEq/L 03/05/2018 Comp Metabolic Vqx133 CL 100 mEq/L 03/05/2018 Comp Metabolic Olg278 CO2 31.0 mEq/L 03/05/2018 Comp Metabolic Zht846 ANION GAP 10 03/05/2018 Comp Metabolic Bxy314 GLUCOSE 90 mg/dL 03/05/2018 Comp Metabolic Mip067 Creat 1.0 mg/dL 03/05/2018 Comp Metabolic Vdg498 eGFR 75 ml/min/1.73m2 03/05/2018 Comp Metabolic Zmy471 BUN 14 mg/dL 03/05/2018 Comp Metabolic Soq717 B/C Ratio 13.6 Ratio 03/05/2018 Comp Metabolic Adl517 CALCIUM 8.9 mg/dL 03/05/2018 Comp Metabolic Bnb949 ALK PHOS 71 U/L 03/05/2018 Comp Metabolic Alb277 AST(SGOT) 21 U/L 03/05/2018 Comp Metabolic Mmw138 ALT(SGPT) 17 U/L 03/05/2018 Comp Metabolic Qvh397 BILI T 1.7 mg/dL 03/05/2018 Comp Metabolic Qjx251 ALBUMIN 4.2 g/dL 03/05/2018 Comp Metabolic Ydm903 TPRO 6.6 g/dL 03/05/2018 Comp Metabolic Imp242 GLOB 2.4 g/dL 03/05/2018 Comp Metabolic Sfi008 A/G Ratio 1.8 Ratio 03/05/2018 Comp Metabolic Dcj852 Osmo 274 mOsmo 03/05/2018 Cbc With Differential [...] 29.5 pg 03/05/2018 Cbc With Differential Ord2 Door% 12.1 % 03/05/2018 Cbc With Differential Ord2 [...] 2.19 K/ul 03/05/2018 Cbc With Differential Ord2 Door ABS# 0.9 K/ul 03/05/2018 Cbc With Differential Ord2 Eos ABS# 0.2 K/ul 03/05/2018 Cbc With Differential Ord2 Baso ABS# 0.0 K/ul 03/05/2018 Tsh Ord6 hTSH II 2.01 uIU/mL 08/26/2017 Comp Metabolic Kek068 NA 141 mEq/L 08/26/2017 Comp Metabolic Cvh264 K 4.4 mEq/L 08/26/2017 Comp Metabolic Bgn349 CL 103 mEq/L 08/26/2017 Comp Metabolic Syd108 CO2 30.0 mEq/L 08/26/2017 Comp Metabolic Xop147 ANION GAP 12 08/26/2017 Comp Metabolic Xlh802 GLUCOSE 100 mg/dL 08/26/2017 Comp Metabolic Ixb014 Creat 1.0 mg/dL 08/26/2017 Comp Metabolic Jrc287 eGFR 76 ml/min/1.73m2 08/26/2017 Comp Metabolic Eug138 BUN 12 mg/dL 08/26/2017 Comp Metabolic Pcg196 B/C Ratio 11.8 Ratio 08/26/2017 Comp Metabolic Loi580 CALCIUM 9.5 mg/dL 08/26/2017 Comp Metabolic Nch126 ALK PHOS 75 U/L 08/26/2017 Comp Metabolic Qqj876 AST(SGOT) 19 U/L 08/26/2017 Comp Metabolic Abs028 ALT(SGPT) 17 U/L 08/26/2017 Comp Metabolic Wln048 BILI T 1.3 mg/dL 08/26/2017 Comp Metabolic Cku156 ALBUMIN 4.4 g/dL 08/26/2017 Comp Metabolic Brn645 TPRO 6.9 g/dL 08/26/2017 Comp Metabolic Wxd882 GLOB 2.5 g/dL 08/26/2017 Comp Metabolic Hoi182 A/G Ratio 1.8 Ratio 08/26/2017 Comp Metabolic Xgm321 Osmo 281 mOsmo 08/26/2017 Cbc With Differential [...] 29.9 pg 08/26/2017 Cbc With Differential Ord2 Door% 10.4 % 08/26/2017 Cbc With Differential Ord2 [...] 2.16 K/ul 08/26/2017 Cbc With Differential Ord2 Door ABS# 0.8 K/ul 08/26/2017 Cbc With Differential [...] 41.3 % 08/02/2016 Cbc With Differential Ord2 Lymph% 34.8 % 08/02/2016 Cbc With Differential Ord2 MCV 90.2 fl 08/02/2016 Cbc With Differential Ord2 MCH 29.7 pg 08/02/2016 Cbc With Differential Ord2 Door% 11.0 % 08/02/2016 Cbc With Differential Ord2 Eos% 4.1 % 08/02/2016 Cbc With Differential Ord2 MCHC 32.9 pg 08/02/2016 Cbc With Differential Ord2 PLT 224 K/ul 08/02/2016 Cbc With Differential Ord2 Baso% 0.3 % 08/02/2016 Cbc With Differential Ord2 Neut ABS# 3.41 K/ul 08/02/2016 Cbc With Differential Ord2 RDW 12.8 % 08/02/2016 Cbc With Differential Ord2 Lymph ABS# 2.38 K/ul 08/02/2016 Cbc With Differential Ord2 Door ABS# 0.8 K/ul 08/02/2016 Cbc With Differential Ord2 Eos ABS# 0.3 K/ul 08/02/2016 Cbc With Differential Ord2 Baso ABS# 0.0 K/ul 08/02/2016 Tsh Ord6 hTSH II 1.20 uIU/mL 08/02/2016 Comp Metabolic Tsf015 NA 138 mEq/L 08/02/2016 Comp Metabolic Wvi968 K 4.6 mEq/L 08/02/2016 Comp Metabolic Dsu997 CL 104 mEq/L 08/02/2016 Comp Metabolic Owh184 CO2 29.0 mEq/L 08/02/2016 Comp Metabolic Lzn553 ANION GAP 10 08/02/2016 Comp Metabolic Chg069 GLUCOSE 99 mg/dL 08/02/2016 Comp Metabolic Rjn220 Creat 1.1 mg/dL 08/02/2016 Comp Metabolic Zwj886 eGFR 73 ml/min/1.73m2 08/02/2016 Comp Metabolic Oih865 BUN 18 mg/dL 08/02/2016 Comp Metabolic Osn264 B/C Ratio 17.0 Ratio 08/02/2016 Comp Metabolic Rno024 CALCIUM 9.4 mg/dL 08/02/2016 Comp Metabolic Ebi849 ALK PHOS 71 U/L 08/02/2016 Comp Metabolic Sgl377 AST(SGOT) 19 U/L 08/02/2016 Comp Metabolic Ias434 ALT(SGPT) 16 U/L 08/02/2016 Comp Metabolic Qvs003 BILI T 1.5 mg/dL 08/02/2016 Comp Metabolic Cly522 ALBUMIN 4.3 g/dL 08/02/2016 Comp Metabolic Wif210 TPRO 6.9 g/dL 08/02/2016 Comp Metabolic Zro635 GLOB 2.6 g/dL 08/02/2016 Comp Metabolic God865 A/G Ratio 1.7 Ratio 08/02/2016 Comp Metabolic Kci556 Osmo 278 mOsmo 08/02/2016 Lipid Ord30 CHOL 126 mg/dL 08/02/2016 Lipid Ord30 HDL 32.0 mg/dl 08/02/2016 Lipid Ord30 TRIG 161 mg/dL 08/02/2016 Lipid Ord30 LDL 62 mg/dL 08/02/2016 Lipid Ord30 C/HDL 3.9 Ratio 08/02/2016 Comp Metabolic Qgt018 NA 137 mEq/L 01/27/2016 Comp Metabolic Bjf636 K 4.1 mEq/L 01/27/2016 Comp Metabolic Ryj242 CL 99 mEq/L 01/27/2016 Comp Metabolic Vbm069 CO2 32.0 mEq/L 01/27/2016 Comp Metabolic Mpp210 ANION GAP 10 01/27/2016 Comp Metabolic Nkt957 GLUCOSE 92 mg/dL 01/27/2016 Comp Metabolic Iwi383 Creat 1.1 mg/dL 01/27/2016 Comp Metabolic Xcj580 eGFR 72 ml/min/1.73m2 01/27/2016 Comp Metabolic Oex927 BUN 16 mg/dL 01/27/2016 Comp Metabolic Yic897 B/C Ratio 15.0 Ratio 01/27/2016 Comp Metabolic Wat228 CALCIUM 9.6 mg/dL 01/27/2016 Comp Metabolic Ayz311 ALK PHOS 82 U/L 01/27/2016 Comp Metabolic Rmv015 AST(SGOT) 21 U/L 01/27/2016 Comp Metabolic Lwe939 ALT(SGPT) 20 U/L 01/27/2016 Comp Metabolic Oly476 BILI T 1.8 mg/dL 01/27/2016 Comp Metabolic Hnd844 ALBUMIN 4.3 g/dL 01/27/2016 Comp Metabolic Fvq458 TPRO 6.8 g/dL 01/27/2016 Comp Metabolic Rdv393 GLOB 2.5 g/dL 01/27/2016 Comp Metabolic Wpv610 A/G Ratio 1.8 Ratio 01/27/2016 Comp Metabolic Mnz315 Osmo 275 mOsmo 01/27/2016 Tsh Ord6 hTSH [...] 14.0 g/dl 01/27/2016 Cbc With Differential Ord2 Neut% 52.1 % 01/27/2016 Cbc With Differential Ord2 HCT 42.6 % 01/27/2016 Cbc With Differential Ord2 Lymph% 32.6 % 01/27/2016 Cbc With Differential Ord2 MCV 89.1 fl 01/27/2016 Cbc With Differential Ord2 MCH 29.3 pg 01/27/2016 Cbc With Differential Ord2 Door% 11.1 % 01/27/2016 Cbc With Differential Ord2 [...] 2.14 K/ul 01/27/2016 Cbc With Differential Ord2 Door ABS# 0.7 K/ul 01/27/2016 Cbc With Differential [...] Ord30 C/HDL 3.5 Ratio 07/26/2015 Comp Metabolic Jpa521 NA 135 mEq/L 07/26/2015 Comp Metabolic Hac588 K 4.3 mEq/L 07/26/2015 Comp Metabolic Sdb264 CL 101 mEq/L 07/26/2015 Comp Metabolic Uzw987 CO2 31.0 mEq/L 07/26/2015 Comp Metabolic Kfv868 ANION GAP 7 07/26/2015 Comp Metabolic Sqk160 GLUCOSE 96 mg/dL 07/26/2015 Comp Metabolic Ooj899 Creat 1.0 mg/dL 07/26/2015 Comp Metabolic Rnr112 eGFR 76 ml/min/1.73m2 07/26/2015 Comp Metabolic Mei503 BUN 14 mg/dL 07/26/2015 Comp Metabolic Jzl122 B/C Ratio 13.6 Ratio 07/26/2015 Comp Metabolic Yzo544 CALCIUM 9.3 mg/dL 07/26/2015 Comp Metabolic Ogs468 ALK PHOS 77 U/L 07/26/2015 Comp Metabolic Qkg074 AST(SGOT) 22 U/L 07/26/2015 Comp Metabolic Yrs052 ALT(SGPT) 19 U/L 07/26/2015 Comp Metabolic Pgy404 BILI T 1.7 mg/dL 07/26/2015 Comp Metabolic Cpk098 ALBUMIN 4.2 g/dL 07/26/2015 Comp Metabolic Wpt843 TPRO 6.6 g/dL 07/26/2015 Comp Metabolic Hct082 GLOB 2.4 g/dL 07/26/2015 Comp Metabolic Jwa679 A/G Ratio 1.8 Ratio 07/26/2015 Comp Metabolic Oev793 Osmo 270 mOsmo 07/26/2015 Cbc With Differential [...] Date PPPS, SUBSEQ VISIT CPT -4: G0439 10/15/2017 IIV4 VACC NO PRSV 3 YRS+ IM CPT-4: 27907 08/26/2017 FLU VAC NO PRSV 4 ISABEL 3 YRS+ CPT-4: 06058 08/26/2017 IIV4 VACC NO PRSV 3 YRS+ IM CPT-4: 65803 08/26/2017 ADMIN INFLUENZA VIRUS VAC CPT-4: G0008 08/26/2017 PPPS, SUBSEQ VISIT CPT -4: G0439 10/09/2016 ADMIN INFLUENZA VIRUS VAC CPT-4: G0008 08/02/2016 FLU VACC 4 ISABEL 3 YRS PLUS IM SNOMED CT: 95738745 CPT-4: 15637 08/02/2016 Vital Signs Date Vital 09/04/2018 Blood Pressure 1: 106/60 Code : 8480-6 BMI: 27.4 Code : 25798-6 Heart Rate 1 : 61 bpm Height: 5'10" SpO2: 97% Weight: 191 lbs 03/05/2018 Blood Pressure 1: 110/60 Code : 8480-6 BMI: 27.8 Code : 72242-0 Heart Rate 1 : 55 bpm Height: 5'10" SpO2: 99% Weight: 194 lbs 10/15/2017 Blood Pressure 1: 124/68 Code : 8480-6 BMI: 28.0 Code : 74448-1 Heart Rate 1 : 56 bpm Height: 5'10" SpO2: 97% Waist Measure (cm): 91 cm Weight: 195 lbs 08/26/2017 Blood Pressure 1: 124/72 Code : 8480-6 BMI: 27.7 Code : 77175-9 Heart Rate 1 : 56 bpm Height: 5'10" SpO2: 97% Weight: 193 lbs 02/19/2017 Blood Pressure 1: 118/80 Code : 8480-6 BMI: 27.5 Code : 94362-2 Heart Rate 1 : 69 bpm Height: 5'10" SpO2: 98% Weight: 192 lbs 10/09/2016 Blood Pressure 1: 124/80 Code : 8480-6 BMI: 28.0 Code : 13564-8 Heart Rate 1 : 68 bpm Height: 5'10" SpO2: 97% Waist Measure (cm): 91 cm Weight: 195 lbs 08/02/2016 Blood Pressure 1: 122/70 Code : 8480-6 BMI: 27.1 Code : 49843-1 Heart Rate 1 : 49 bpm Height: 5'10" SpO2: 97% Weight: 189 lbs 01/26/2016 Blood Pressure 1: 116/72 Code : 8480-6 BMI: 28.4 Code : 28338-7 Heart Rate 1 : 58 bpm Height: 5'10" SpO2: 98% Weight: 198 lbs 07/26/2015 Blood Pressure 1: 122/72 Code : 8480-6 BMI: 27.3 Code : 51743-4 Heart Rate 1 : 50 bpm Height: 5'10" SpO2: 97% Weight: 190 lbs Functional Status No Functional Status data History of Present Illness Symptom Name Status Result Effective Date Notes hypertension Quality chronic 09/04/2018 None hypertension Quality [...] data Encounters Encounter Performer Location Codes Date ([id number]) [id number] EST. PATIENT, LEVEL IV Diagnosis: Essential (primary) hypertension[ICD10: I10] Diagnosis: Mixed hyperlipidemia[ICD10: E78.2] Diagnosis: Changes in skin texture[ICD10: R23.4] [facility] CPT-4: 77217 09/04/2018 ([id number]) 56214 EST. 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 PATIENT, LEVEL IV Diagnosis: Essential (primary) hypertension[ICD10: I10] Diagnosis: Mixed hyperlipidemia[ICD10: E78.2] Diagnosis: Encounter for immunization[ICD10: Z23] [facility] CPT-4: 08513 08/26/2017 ([id number]) 03654 EST. PATIENT, LEVEL IV Diagnosis: Essential (primary) hypertension[ICD10: I10] Diagnosis: Mixed hyperlipidemia[ICD10: E78.2] [facility] MD, [facility] CPT-4: 43461 02/19/2017 ([id number]) 68505 EST. PATIENT, LEVEL IV Diagnosis: Essential (primary) hypertension[ICD10: I10] Diagnosis: Mixed hyperlipidemia[ICD10: E78.2] [facility] MD, [facility] CPT-4: 01126 08/02/2016 ([id number]) 62440 EST. PATIENT, LEVEL IV Diagnosis: Essential (primary) hypertension[ICD10: I10] Diagnosis: Mixed hyperlipidemia[ICD10: E78.2] [facility] CPT-4: 68082 01/26/2016 ([id number]) OFFICE VISIT, NEW - LEVEL 4 Diagnosis: ESSENTIAL HYPERTENSION[ICD9: 401.9] Diagnosis: HYPERLIPIDEMIA[ICD9: 272.4] Diagnosis: NOCTURIA[ICD9: 788.43] [facility] CPT-4: 70145 07/26/2015 Plan of Care Planned Activity Notes Codes Status Date Visit Plan: Hypertension - well controlled - [...] patient to Dr. Gerber for removal. 09/04/2018 Patient Education: Patient Medication Summary Completed 09/04/2018 Patient Education: Hypertension Completed 09/04/2018 Referral: Wily Caruso [address] [facility] Patient's informed. Referral info faxed. Completed [...] removal. 03/05/2018 [phone] [facility] (15 min) Moderate 03/05/2018 Patient Education: Patient Medication Summary Completed 03/05/2018 Care Plan: Referral Order SNOMED-CT : [id number] Pending 03/05/2018 Visit Plan: Medicare Exam - [...] surrogate. 10/15/2017 Appointment[facility] [phone] [phone] [facility] - Annual Wellness Visit 10/15/2017 Patient [...] given today 08/26/2017 Appointment: Ewa Melchor WPtel: [phone] [facility] (15 min) Moderate 08/26/2017 Patient Education: Patient Medication Summary Completed 08/26/2017 Appointment: Ewa Melchor WPtel: [phone] [facility] [place] (15 min) Moderate 08/19/2017 Appointment: Ewa Melchor WPtel: [phone] [facility] [place] (15 min) Moderate 02/20/2017 Visit Plan: Hypertension [...] to medications. 02/19/2017 Appointment: Ewa Melchor WPtel: [phone] [facility] [place] (30 min) Complex 02/19/2017 Patient Education: Patient Medication Summary Completed 02/19/2017 Patient Education: Hypertension Completed 02/19/2017 [facility] [phone] [facility] ([facility] min) Moderate 02/06/2017 Visit Plan: [...] care surrogate. 10/09/2016 Appointment: [facility] Quint[facility] [phone] [facility] [place] [address] - Annual Wellness Visit 10/09/2016 Patient Education: [...] medications. 08/02/2016 App[facility]: [facility] [phone] [facility] (15 min) Moderate 08/02/2016 Patient Education: Patient Medication Summary Completed 08/02/2016 [facility] [facility] Referral Completed 02/16/2016 Care Plan: Referral Order SNOMED-CT : [id number] Ordered 01/29/2016 Visit Plan: Hypertension - well [...] to medications. 01/26/2016 Appointment: E[facility] Melchor WPtel: [address] [place], [place] [address] (15 min) Moderate 01/26/2016 Patient Education: Patient [...] few months. 07/26/2015 Appointment: [facility]chor WPtel: [phone] [facility] [place] ([place]) New Patient 07/26/2015 Patient Education: Patient Medication Summary Completed 07/26/2015 Patient Education: Hypertension Completed 07/26/2015 Referral: Chuy Evans Referral Relationship Referral: Acosta Teran [address] [facility] [address] [id number] [place] Referral Appointment Requested Referral: Wily Caruso [address] [facility] Referral Appointment Requested Instructions Comment co-enzyme Q10 [...]
--- OUTSIDE RECORDS SUMMARY | 2019-01-20 09:57 | XMS REPORT | Continuity of Care Document ---
Author Author [facility] Organization [facility] Address Unknown Phone Unavailable Allergies Active Description Code Type Severity Reaction Onset Reported/Identified Relationship to Patient Clinical Status Yes NKANo Known Allergies NKA Miscellaneous Allergy Unknown N/A 01/22/2006 Medications There is no data. 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[place] 09/07/2015 CHARU SWENSON MD Ot Z01.818 09/07/2015 CHARU SWENSON MD Ot K57.30 DVRTCLOS OF LG INT W/O PERFORATION OR AB 09/07/2015 CHARU SWENSON MD Ot K64.4 RESIDUAL HEMORRHOIDAL SKIN TAGS 09/07/2015 CHARU SWENSON MD Ot K64.8 OTHER HEMORRHOIDS 09/07/2015 CHARU SWENSON MD Ot Z12.11 ENCOUNTER FOR SCREENING FOR MALIGNANT NE 09/07/2015 CHARU SWENSON MD Ot Z80.0 FAMILY HISTORY OF MALIGNANT NEOPLASM OF 04/16/2016 CHARU SWENSON MD Ot Z01.818 ENCOUNTER FOR OTHER PREPROCEDURAL EXAMIN 05/08/2016 DAMIR WORHTINGTON, NICK Avina Ot C61 MALIGNANT NEOPLASM OF PROSTATE 06/29/2016 OFELIA SHAWP Ot E78.4 OTHER HYPERLIPIDEMIA 06/29/2016 OFELIA SHAW EXPLOSIVE ORDNANCE DISPOSAL TECHNICIAN Ot I10 ESSENTIAL (PRIMARY) HYPERTENSION 06/29/2016 OFELIA SHAW EXPLOSIVE ORDNANCE DISPOSAL TECHNICIAN Ot I25.10 ATHSCL HEART DISEASE OF [place] CORONARY 06/29/2016 OFELIA SHAW EXPLOSIVE ORDNANCE DISPOSAL TECHNICIAN Ot I65.23 OCCLUSION AND STENOSIS OF BILATERAL [place] 06/29/2016 BAIMA, OFELIA L EXPLOSIVE ORDNANCE DISPOSAL TECHNICIAN Ot E78.4 OTHER HYPERLIPIDEMIA 06/29/2016 BAIMA, OFELIA L EXPLOSIVE ORDNANCE DISPOSAL TECHNICIAN Ot I10 ESSENTIAL (PRIMARY) HYPERTENSION 06/29/2016 BAIMA, OFELIA L EXPLOSIVE ORDNANCE DISPOSAL TECHNICIAN Ot I25.10 ATHSCL HEART DISEASE OF [place] CORONARY 06/29/2016 BAIMA, OFELIA L EXPLOSIVE ORDNANCE DISPOSAL TECHNICIAN Ot I65.23 OCCLUSION AND STENOSIS OF BILATERAL [place] 07/20/2016 BAIMA, OFELIA L EXPLOSIVE ORDNANCE DISPOSAL TECHNICIAN Ot E78.4 OTHER HYPERLIPIDEMIA 07/20/2016 BAIMA, OFELIA L EXPLOSIVE ORDNANCE DISPOSAL TECHNICIAN Ot I10 ESSENTIAL (PRIMARY) HYPERTENSION 07/20/2016 BAIMA, OFELIA L EXPLOSIVE ORDNANCE DISPOSAL TECHNICIAN Ot I25.10 ATHSCL HEART DISEASE OF [place] CORONARY 07/20/2016 BAIMA, OFELIA L EXPLOSIVE ORDNANCE DISPOSAL TECHNICIAN Ot I65.23 OCCLUSION AND STENOSIS OF BILATERAL [place] 01/25/2017 CHARU SWENSON MD Ot Z01.818 ENCOUNTER FOR OTHER PREPROCEDURAL EXAMIN 01/25/2017 NICK REICH MD Ot C61 MALIGNANT NEOPLASM OF PROSTATE 01/25/2017 BAIMA, OFELIA L EXPLOSIVE ORDNANCE DISPOSAL TECHNICIAN Ot E78.4 OTHER HYPERLIPIDEMIA 01/25/2017 BAIMA, OFELIA L EXPLOSIVE ORDNANCE DISPOSAL TECHNICIAN Ot I10 ESSENTIAL (PRIMARY) HYPERTENSION 01/25/2017 BAIMA, OFELIA L EXPLOSIVE ORDNANCE DISPOSAL TECHNICIAN Ot I25.10 ATHSCL HEART DISEASE OF [place] CORONARY 01/25/2017 BAIMA, OFELIA L EXPLOSIVE ORDNANCE DISPOSAL TECHNICIAN Ot I65.23 OCCLUSION AND STENOSIS OF BILATERAL [place] 01/29/2017 ERNESTINA WORTHINGTON FAC, ALI FACP CCDS Ot I10 ESSENTIAL (PRIMARY) HYPERTENSION 01/29/2017 ERNESTINA WORTHINGTON FACC, ALI FACP CCDS Ot 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 01/29/2017 ERNESTINA WORTHINGTON FACC, ALI FACP CCDS Ot I71.4 ABDOMINAL AORTIC ANEURYSM, WITHOUT RUPTU 01/31/2017 CHARU SWENSON MD Ot Z01.818 ENCOUNTER FOR OTHER PREPROCEDURAL EXAMIN 01/31/2017 NICK REICH MD Ot C61 MALIGNANT NEOPLASM OF PROSTATE 01/31/2017 BAIMA, OFELIA L EXPLOSIVE ORDNANCE DISPOSAL TECHNICIAN Ot E78.4 OTHER HYPERLIPIDEMIA 01/31/2017 BAIMA, OFELIA L EXPLOSIVE ORDNANCE DISPOSAL TECHNICIAN Ot I10 ESSENTIAL (PRIMARY) HYPERTENSION 01/31/2017 BAIMA, OFELIA L EXPLOSIVE ORDNANCE DISPOSAL TECHNICIAN Ot I25.10 ATHSCL HEART DISEASE OF [place] CORONARY 01/31/2017 OFELIA SHAW EXPLOSIVE ORDNANCE DISPOSAL TECHNICIAN Ot I65.23 OCCLUSION AND STENOSIS OF BILATERAL [place] 01/31/2017 ERNESTINA WORTHINGTON FACC, KEVIN FACP CCDS Ot I10 ESSENTIAL (PRIMARY) HYPERTENSION 01/31/2017 ERNESTINA WORTHINGTON FACC, KEVIN FACP CCDS Ot 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 01/31/2017 ERNESTINA WORTHINGTON FACC, KEVIN PARK CCDS Ot I71.4 ABDOMINAL AORTIC ANEURYSM, WITHOUT RUPTU 01/31/2017 YENNIFER KOEHLER MD, Ot I71.4 ABDOMINAL AORTIC ANEURYSM, WITHOUT RUPTU 01/31/2017 YENNIFER KOEHLER MD Ot Z01.810 ENCOUNTER FOR PREPROCEDURAL CARDIOVASCUL 01/31/2017 YENNIFER KOEHLER MD Ot Z01.818 ENCOUNTER FOR OTHER PREPROCEDURAL EXAMIN 02/01/2017 YENNIFER KOEHLER MD Ot I71.4 ABDOMINAL AORTIC ANEURYSM, WITHOUT RUPTU 02/01/2017 YENNIFER KOEHLER MD Ot Z01.810 ENCOUNTER FOR PREPROCEDURAL CARDIOVASCUL 02/01/2017 YENNIFER KOEHLER MD Ot Z01.818 ENCOUNTER FOR OTHER PREPROCEDURAL EXAMIN 02/21/2017 YENNIFER KOEHLER MD Ot I71.4 ABDOMINAL AORTIC ANEURYSM, WITHOUT RUPTU 02/21/2017 YENNIFER KOEHLER MD Ot Z01.810 ENCOUNTER FOR PREPROCEDURAL CARDIOVASCUL 02/21/2017 YENNIFER KOEHLER MD Ot Z01.818 ENCOUNTER FOR OTHER PREPROCEDURAL EXAMIN 02/26/2017 ERNESTINA WORTHINGTON FACC, KEVIN GARCIAP CCDS Ot I10 ESSENTIAL (PRIMARY) HYPERTENSION 02/26/2017 ERNESTINA WORTHINGTON FACC, KEVIN GARCIAP CCDS Ot 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 02/26/2017 ERNESTINA WORTHINGTON FACC, KEVIN GARCIAP CCDS Ot I71.4 ABDOMINAL AORTIC ANEURYSM, WITHOUT RUPTU 03/13/2017 SELENE ROSSP Ot I71.4 ABDOMINAL AORTIC ANEURYSM, WITHOUT RUPTU 03/13/2017 SELENE ROSSP Ot K80.20 CALCULUS OF GALLBLADDER W/O CHOLECYSTITI 03/13/2017 SELENE ROSSP Ot Z95.828 PRESENCE OF OTHER VASCULAR IMPLANTS AND 03/13/2017 ROSSSELENE COX EXPLOSIVE ORDNANCE DISPOSAL TECHNICIAN Ot I71.4 ABDOMINAL AORTIC ANEURYSM, WITHOUT RUPTU 03/13/2017 ROSSSELENE COX EXPLOSIVE ORDNANCE DISPOSAL TECHNICIAN Ot K80.20 CALCULUS OF GALLBLADDER W/O CHOLECYSTITI 03/13/2017 ROSSSELENE COX EXPLOSIVE ORDNANCE DISPOSAL TECHNICIAN Ot Z95.828 PRESENCE OF OTHER VASCULAR IMPLANTS AND 03/13/2017 ROSSSELENE COX EXPLOSIVE ORDNANCE DISPOSAL TECHNICIAN Ot I71.4 ABDOMINAL AORTIC ANEURYSM, WITHOUT RUPTU 03/13/2017 ROSSSELENE COX EXPLOSIVE ORDNANCE DISPOSAL TECHNICIAN Ot K80.20 CALCULUS OF GALLBLADDER W/O CHOLECYSTITI 03/13/2017 ROSS, SELENE Jo EXPLOSIVE ORDNANCE DISPOSAL TECHNICIAN Ot Z95.828 PRESENCE OF OTHER VASCULAR IMPLANTS AND 04/03/2017 ROSSSELENE COX EXPLOSIVE ORDNANCE DISPOSAL TECHNICIAN Ot I71.4 ABDOMINAL AORTIC ANEURYSM, WITHOUT RUPTU 04/03/2017 ROSSSELENE COX EXPLOSIVE ORDNANCE DISPOSAL TECHNICIAN Ot K80.20 CALCULUS OF GALLBLADDER W/O CHOLECYSTITI 04/03/2017 ROSS SELENE Jo EXPLOSIVE ORDNANCE DISPOSAL TECHNICIAN Ot Z95.828 PRESENCE OF OTHER VASCULAR IMPLANTS AND 09/10/2017 CHARU SWENSON MD Ot Z01.818 ENCOUNTER FOR OTHER PREPROCEDURAL EXAMIN 09/10/2017 DAMIR WORTHINGTON, NICK Avina Ot C61 MALIGNANT NEOPLASM OF PROSTATE 09/10/2017 OFELIA SHAW EXPLOSIVE ORDNANCE DISPOSAL TECHNICIAN Ot E78.4 OTHER HYPERLIPIDEMIA 09/10/2017 OFELIA SHAW EXPLOSIVE ORDNANCE DISPOSAL TECHNICIAN Ot I10 ESSENTIAL (PRIMARY) HYPERTENSION 09/10/2017 OFELIA SHAW EXPLOSIVE ORDNANCE DISPOSAL TECHNICIAN Ot I25.10 ATHSCL HEART DISEASE OF [place] CORONARY 09/10/2017 OFELIA SHAW EXPLOSIVE ORDNANCE DISPOSAL TECHNICIAN Ot I65.23 OCCLUSION AND STENOSIS OF BILATERAL [place] 09/10/2017 ERNESTINA WORTHINGTON FACC, ALI FACP CCDS Ot I10 ESSENTIAL (PRIMARY) HYPERTENSION 09/10/2017 ERNESTINA WORTHINGTON FACC, KEVIN GARCIAP CCDS Ot 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 09/10/2017 ERNESTINA WORTHINGTON FACC, ALI FACP CCDS Ot I71.4 ABDOMINAL AORTIC ANEURYSM, WITHOUT RUPTU 09/10/2017 YENNIFER KOEHLER MD Ot I71.4 ABDOMINAL AORTIC ANEURYSM, WITHOUT RUPTU 09/10/2017 VETSCH MD, YENNIFER Ot Z01.810 ENCOUNTER FOR PREPROCEDURAL CARDIOVASCUL 09/10/2017 RODO WORTHINGTON, YENNIFER Ot Z01.818 ENCOUNTER FOR OTHER PREPROCEDURAL EXAMIN 09/10/2017 ROSSSELENE COX EXPLOSIVE ORDNANCE DISPOSAL TECHNICIAN Ot I71.4 ABDOMINAL AORTIC ANEURYSM, WITHOUT RUPTU 09/10/2017 ROSS, SELENE Jo EXPLOSIVE ORDNANCE DISPOSAL TECHNICIAN Ot K80.20 CALCULUS OF GALLBLADDER W/O CHOLECYSTITI 09/10/2017 ROSS, SELENE M EXPLOSIVE ORDNANCE DISPOSAL TECHNICIAN Ot Z95.828 PRESENCE OF OTHER VASCULAR IMPLANTS AND 09/22/2017 ROSS, SELENE M EXPLOSIVE ORDNANCE DISPOSAL TECHNICIAN Ot I71.4 ABDOMINAL AORTIC ANEURYSM, WITHOUT RUPTU 09/22/2017 ROSS, SELENE M EXPLOSIVE ORDNANCE DISPOSAL TECHNICIAN Ot K80.20 CALCULUS OF GALLBLADDER W/O CHOLECYSTITI 09/22/2017 ROSS, SELENE M EXPLOSIVE ORDNANCE DISPOSAL TECHNICIAN Ot Z95.828 PRESENCE OF OTHER VASCULAR IMPLANTS AND 10/09/2017 ROSS, SELENE M EXPLOSIVE ORDNANCE DISPOSAL TECHNICIAN Ot I71.4 ABDOMINAL AORTIC ANEURYSM, WITHOUT RUPTU 10/09/2017 ROSS, SELENE M EXPLOSIVE ORDNANCE DISPOSAL TECHNICIAN Ot K80.20 CALCULUS OF GALLBLADDER W/O CHOLECYSTITI 10/09/2017 ROSS, SELENE Jo EXPLOSIVE ORDNANCE DISPOSAL TECHNICIAN Ot Z95.828 PRESENCE OF OTHER VASCULAR IMPLANTS AND 09/16/2018 LEELA WORTHINGTON, CHARU Ot Z01.818 ENCOUNTER FOR OTHER PREPROCEDURAL EXAMIN 09/16/2018 DAMIR WORTHINGTON, NICK Avina Ot C61 MALIGNANT NEOPLASM OF PROSTATE 09/16/2018 OFELIA SHAW L EXPLOSIVE ORDNANCE DISPOSAL TECHNICIAN Ot E78.4 OTHER HYPERLIPIDEMIA 09/16/2018 OFELIA SHAW L EXPLOSIVE ORDNANCE DISPOSAL TECHNICIAN Ot I10 ESSENTIAL (PRIMARY) HYPERTENSION 09/16/2018 OFELIA SHAW L EXPLOSIVE ORDNANCE DISPOSAL TECHNICIAN Ot I25.10 ATHSCL HEART DISEASE OF [place] CORONARY 09/16/2018 OFELIA SHAW L EXPLOSIVE ORDNANCE DISPOSAL TECHNICIAN Ot I65.23 OCCLUSION AND STENOSIS OF BILATERAL [place] 09/16/2018 ERNESTINA WORTHINGTON FACC, ALI FACP CCDS Ot I10 ESSENTIAL (PRIMARY) HYPERTENSION 09/16/2018 ERNESTINA WORTHINGTON FACC, ALI FACP CCDS Ot 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 09/16/2018 ERNESTINA WORTHINGTON FACC, ALI FACP CCDS Ot I71.4 ABDOMINAL AORTIC ANEURYSM, WITHOUT RUPTU 09/16/2018 YENNIFER KOEHLER MD, Ot I71.4 ABDOMINAL AORTIC ANEURYSM, WITHOUT RUPTU 09/16/2018 YENNIFER KOEHLER MD Ot Z01.810 ENCOUNTER FOR PREPROCEDURAL CARDIOVASCUL 09/16/2018 YENNIFER KOEHLER MD Ot Z01.818 ENCOUNTER FOR OTHER PREPROCEDURAL EXAMIN 09/16/2018 SELENE ROSSP Ot I71.4 ABDOMINAL AORTIC ANEURYSM, WITHOUT RUPTU 09/16/2018 SELENE ROSSP Ot K80.20 CALCULUS OF GALLBLADDER W/O CHOLECYSTITI 09/16/2018 SELENE ROSSP Ot Z95.828 PRESENCE OF OTHER VASCULAR IMPLANTS AND 09/16/2018 SELENE ROSSP Ot I71.4 ABDOMINAL AORTIC ANEURYSM, WITHOUT RUPTU 09/16/2018 SELENE ROSS Ot K80.20 CALCULUS OF GALLBLADDER W/O CHOLECYSTITI 09/16/2018 SELENE ROSSP Ot Z95.828 PRESENCE OF OTHER VASCULAR IMPLANTS AND 09/17/2018 YENNIFER KOEHLER MD Ot I71.4 ABDOMINAL AORTIC ANEURYSM, WITHOUT RUPTU 09/21/2018 ROSSSELENE COX Ot I71.4 ABDOMINAL AORTIC ANEURYSM, WITHOUT RUPTU 09/21/2018 SELENE ROSS Ot K80.20 CALCULUS OF GALLBLADDER W/O CHOLECYSTITI 10/08/2018 YENNIFER KOEHLER MD Ot I71.4 ABDOMINAL AORTIC ANEURYSM, WITHOUT RUPTU 10/28/2018 MACK MAJOR MD Ot 414.01 CORONARY ATHEROSCLEROSIS OF [place] CORON 10/28/2018 MACK MAJOR MD Ot 786.50 CHEST PAIN NOS 10/28/2018 MACK MAJOR MD Ot 397.0 TRICUSPID VALVE DISEASE 10/28/2018 MACK MAJOR MD Ot 414.00 CORON ATHEROSCLER NOS TYPE VESSEL, NATIV 10/28/2018 MACK MAJOR MD Ot 424.0 MITRAL VALVE DISORDER 10/28/2018 MACK MAJOR MD Ot 786.50 CHEST PAIN NOS 01/12/2019 LEELA WORTHINGTON, CHARU Ot Z01.818 ENCOUNTER FOR OTHER PREPROCEDURAL EXAMIN 01/12/2019 DAMIR WORTHINGTON, NICK Avina Ot C61 MALIGNANT NEOPLASM OF PROSTATE 01/12/2019 BAIMA, OFELIA L EXPLOSIVE ORDNANCE DISPOSAL TECHNICIAN Ot E78.4 OTHER HYPERLIPIDEMIA 01/12/2019 COLINOFELIA EXPLOSIVE ORDNANCE DISPOSAL TECHNICIAN Ot I10 ESSENTIAL (PRIMARY) HYPERTENSION 01/12/2019 GERMANIAOFELIA DURHAM EXPLOSIVE ORDNANCE DISPOSAL TECHNICIAN Ot I25.10 ATHSCL HEART DISEASE OF [place] CORONARY 01/12/2019 OFELIA SHAW EXPLOSIVE ORDNANCE DISPOSAL TECHNICIAN Ot I65.23 OCCLUSION AND STENOSIS OF BILATERAL [place] 01/12/2019 ERNESTINA WORTHINGTON FAC, ALI FACP CCDS Ot I10 ESSENTIAL (PRIMARY) HYPERTENSION 01/12/2019 ERNESTINA WORTHINGTON FAC, ALI FACP CCDS Ot 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 01/12/2019 ERNESTINA WORTHINGTON FACC, ALI FACP CCDS Ot I71.4 ABDOMINAL AORTIC ANEURYSM, WITHOUT RUPTU 01/12/2019 YENNIFER KOEHLER MD, Ot I71.4 ABDOMINAL AORTIC ANEURYSM, WITHOUT RUPTU 01/12/2019 YENNIFER KOEHLER MD Ot Z01.810 ENCOUNTER FOR PREPROCEDURAL CARDIOVASCUL 01/12/2019 YENNIFER KOEHLER MD Ot Z01.818 ENCOUNTER FOR OTHER PREPROCEDURAL EXAMIN 01/12/2019 SELENE ROSS EXPLOSIVE ORDNANCE DISPOSAL TECHNICIAN Ot I71.4 ABDOMINAL AORTIC ANEURYSM, WITHOUT RUPTU 01/12/2019 SELENE ROSS EXPLOSIVE ORDNANCE DISPOSAL TECHNICIAN Ot K80.20 CALCULUS OF GALLBLADDER W/O CHOLECYSTITI 01/12/2019 SELENE ROSS EXPLOSIVE ORDNANCE DISPOSAL TECHNICIAN Ot Z95.828 PRESENCE OF OTHER VASCULAR IMPLANTS AND 01/12/2019 SELENE ROSS EXPLOSIVE ORDNANCE DISPOSAL TECHNICIAN Ot I71.4 ABDOMINAL AORTIC ANEURYSM, WITHOUT RUPTU 01/12/2019 SELENE ROSS EXPLOSIVE ORDNANCE DISPOSAL TECHNICIAN Ot K80.20 CALCULUS OF GALLBLADDER W/O CHOLECYSTITI 01/12/2019 SLEENE ROSS EXPLOSIVE ORDNANCE DISPOSAL TECHNICIAN Ot Z95.828 PRESENCE OF OTHER VASCULAR IMPLANTS AND 01/12/2019 SELENE ROSS EXPLOSIVE ORDNANCE DISPOSAL TECHNICIAN Ot I71.4 ABDOMINAL AORTIC ANEURYSM, WITHOUT RUPTU 01/12/2019 SELENE ROSS EXPLOSIVE ORDNANCE DISPOSAL TECHNICIAN Ot K80.20 CALCULUS OF GALLBLADDER W/O CHOLECYSTITI 01/12/2019 YENNIFER KOEHLER MD Ot I71.4 ABDOMINAL AORTIC ANEURYSM, WITHOUT RUPTU 01/14/2019 COLINRIGOOFELIA L EXPLOSIVE ORDNANCE DISPOSAL TECHNICIAN Ot I10 ESSENTIAL (PRIMARY) HYPERTENSION 01/14/2019 BAIOFELIA DURHAM Evan PÉREZ Ot I25.10 ATHSCL HEART DISEASE OF [place] CORONARY 01/14/2019 OFELIA SHAW BETO Ot I34.0 NONRHEUMATIC MITRAL (VALVE) INSUFFICIENC Procedures Code Description Performed By Performed On 37.22 LEFT HEART CARDIAC CATH 07/07/2012 88.42 CONTRAST AORTOGRAM 07/07/2012 88.53 LT HEART ANGIOCARDIOGRAM 07/07/2012 88.56 CORONAR ARTERIOGR-2 CATH 07/07/2012 Results Test Result Range Automated blood complete blood count (hemogram) panel - 01/31/17 07:50 Blood leukocytes automated count (number/volume) 6.0 10*3/uL 4.3-11.0 Blood erythrocytes automated count (number/volume) 4.92 10*6/uL 4.35-5.85 Venous blood hemoglobin measurement (mass/volume) 14.5 g/dL 13.3-17.7 Blood hematocrit (volume fraction) 43 % 40-54 Automated erythrocyte mean corpuscular volume 87 [foz_us] 80-99 Automated erythrocyte mean corpuscular hemoglobin (mass per erythrocyte) 30 pg 25-34 Automated erythrocyte mean corpuscular hemoglobin concentration measurement ( mass/volume) 34 g/dL 32-36 Automated erythrocyte distribution width ratio 12.3 % 10.0-14.5 Automated blood platelet count (count/volume) 215 10*3/uL 130-400 Automated blood platelet mean volume measurement 10.0 [foz_us] 7.4-10.4 Comprehensive metabolic panel - 01/31/17 07:50 Serum or plasma sodium measurement (moles/volume) 139 mmol/L 135-145 Serum or plasma potassium measurement (moles/volume) 4.2 mmol/L 3.6-5.0 Serum or plasma chloride measurement (moles/volume) 108 mmol/L 98-107 Carbon dioxide 21 mmol/L 21-32 Serum or plasma anion gap determination (moles/volume) 10 mmol/L 5-14 Serum or plasma urea nitrogen measurement (mass/volume) 12 mg/dL 7-18 Serum or plasma creatinine measurement (mass/volume) 1.13 mg/dL 0.60-1.30 Serum or plasma urea nitrogen/creatinine mass ratio 11 NRG Serum or plasma creatinine measurement with calculation of estimated glomerular filtration rate > NRG Serum or plasma glucose measurement (mass/volume) 103 mg/dL 70-105 Serum or plasma calcium measurement (mass/volume) 8.9 mg/dL 8.5-10.1 Serum or plasma total bilirubin measurement (mass/volume) 1.2 mg/dL 0.1-1.0 Serum or plasma alkaline phosphatase measurement (enzymatic activity/volume) 85 U/L 40-136 Serum or plasma aspartate aminotransferase measurement (enzymatic activity/ volume) 24 U/L 5-34 Serum or plasma alanine aminotransferase measurement (enzymatic activity/volume ) 21 U/L 0-55 Serum or plasma protein measurement (mass/volume) 6.8 g/dL 6.4-8.2 Serum or plasma albumin measurement (mass/volume) 4.0 g/dL 3.2-4.5 Complete urinalysis with reflex to culture - 01/31/17 08:05 Urine color determination YELLOW NRG Urine clarity determination CLEAR NRG Urine pH measurement by test strip 5 5-9 Specific gravity of urine by test strip 1.025 1.016- 1.022 Urine protein assay by test strip, semi-quantitative NEGATIVE NEGATIVE Urine glucose detection by automated test strip NEGATIVE NEGATIVE Erythrocytes detection in urine sediment by light microscopy 2+ NEGATIVE Urine ketones detection by automated test strip NEGATIVE NEGATIVE Urine nitrite detection by test strip NEGATIVE NEGATIVE Urine total bilirubin detection by test strip NEGATIVE NEGATIVE Urine urobilinogen measurement by automated test strip (mass/volume) NORMAL NORMAL Urine leukocyte esterase detection by dipstick NEGATIVE NEGATIVE Automated urine sediment erythrocyte count by microscopy (number/high power field) NONE NRG Automated urine sediment leukocyte count by microscopy (number/high power field ) NONE NRG Bacteria detection in urine sediment by light microscopy NEGATIVE NRG Crystals detection in urine sediment by light microscopy NONE NRG Casts detection in urine sediment by light microscopy NONE NRG Mucus detection in urine sediment by light microscopy NEGATIVE NRG Complete urinalysis with reflex to culture NO NRG [id number] - 03/12/17 08:02 Serum or plasma urea nitrogen measurement (mass/volume) 12 mg/dL 7-18 Serum or plasma creatinine measurement (mass/volume) 1.10 mg/dL 0.60-1.30 Serum or plasma urea nitrogen/creatinine mass ratio 11 NRG Serum or plasma creatinine measurement with calculation of estimated glomerular filtration rate > NRG Serum or plasma creatinine measurement with calculation of estimated glomerular filtration rate - 09/16/17 07:38 Serum or plasma creatinine measurement (mass/volume) 1.03 mg/dL 0.60-1.30 Serum or plasma creatinine measurement with calculation of estimated glomerular filtration rate > NRG Serum or plasma renal function panel (Na, K, Cl, CO2, BUN, Cr, glucose,Ca, phos , alb) - 09/16/18 08:10 Serum or plasma sodium measurement (moles/volume) 139 mmol/L 135-145 Serum or plasma potassium measurement (moles/volume) 4.1 mmol/L 3.6-5.0 Serum or plasma chloride measurement (moles/volume) 107 mmol/L 98-107 Carbon dioxide 21 mmol/L 21-32 Serum or plasma anion gap determination (moles/volume) 11 mmol/L 5-14 Serum or plasma urea nitrogen measurement (mass/volume) 10 mg/dL 7-18 Serum or plasma creatinine measurement (mass/volume) 0.98 mg/dL 0.60-1.30 Serum or plasma urea nitrogen/creatinine mass ratio 10 NRG Serum or plasma creatinine measurement with calculation of estimated glomerular filtration rate > NRG Serum or plasma glucose measurement (mass/volume) 99 mg/dL 70-105 Serum or plasma calcium measurement (mass/volume) 9.4 mg/dL 8.5-10.1 Serum or plasma albumin measurement (mass/volume) 4.2 g/dL 3.2-4.5 Serum or plasma phosphate measurement (mass/volume) 2.5 mg/dL 2.3-4.7 Encounters ACCT No. Visit Date/Time Discharge Status Pt. Type Provider Facility Loc./Unit Complaint [id number] 01/13/2019 07:00:00 01/13/2019 23:59:59 CLS Outpatient OFELIA SHAW [facility] CARD CAD [id number] 09/17/2018 07:42:00 09/17/2018 23:59:59 CLS Outpatient SELENE ROSS [facility] RAD AAA,ENDOVASCULAR GRAFT REPAIR INFRARENAL AAA [id number] 09/16/2018 08:04:00 09/16/2018 23:59:59 CLS Outpatient YENNIFER KOEHLER MD [facility] LAB I71.4 [id number] 09/16/2017 07:28:00 09/16/2017 23:59:59 CLS Outpatient SELENE ROSS EXPLOSIVE ORDNANCE DISPOSAL TECHNICIAN [facility] RAD AAA I71.4 [id number] 03/12/2017 07:52:00 03/12/2017 23:59:59 CLS Outpatient SELENE ROSS EXPLOSIVE ORDNANCE DISPOSAL TECHNICIAN [facility] RAD I71.4 [id number] 01/31/2017 07:02:00 01/31/2017 23:59:59 CLS Outpatient YENNIFER KOEHLER MD [facility] LAB Z01.810,Z01.818 [id number] 01/25/2017 08:17:00 01/25/2017 23:59:59 CLS Outpatient ERNESTINA WORTHINGTON FACC, KEVIN PARK CCDS [facility] RAD AAA,HTN [id number] 06/28/2016 07:14:00 06/28/2016 23:59:59 CLS Outpatient OFELIA SHAW [facility] CARD CAD, CAROTOID ARTERIAL DISEASE, HTN [id number] 04/16/2016 11:39:00 04/16/2016 23:59:59 CLS Outpatient NICK REICH MD [facility] RAD PROSTATE CA [id number] 09/07/2015 08:17:00 09/07/2015 11:15:00 DIS Outpatient CHARU SWENSON MD [facility] SDC SCREENING,HX POLYPS [id number] 09/01/2015 05:53:00 09/01/2015 23:59:59 CLS Outpatient CHARU SWENSON MD [facility] PREOP HX POLYPS [id number] 06/30/2013 11:29:00 06/30/2013 23:59:59 CLS Outpatient MACK MAJOR MD [facility] RAD CP,CAD [id number] 06/29/2013 08:27:00 06/29/2013 23:59:59 CLS Outpatient MACK MAJOR MD [facility] CARD CP,CAD [id number] 01/20/2019 12:00:00 PEN Preadmit ERNESTINA WORTHINGTON FACGolden, KEVIN PARK CCDS [facility] CATH CAD,HTN [id number] 07/07/2012 09:34:00 Document Registration [id number] 08/26/2017 17:52:51 08/26/2017 23:59:59 [facility] Outpatient
[2019-01-20] MEDS ORDERED: NS IV 1000 ML 1,000 ML IV SCH ×2 (10:15→14:53)
[2019-01-20 10:32] LABS: HEMOGLOBIN 14.4 G/DL (13.3-17.7); MEAN PLATELET VOLUME 9.4 FL (7.4-10.4); RED CELL DISTRIBUTION WIDTH 12.1 % (10.0-14.5); WHITE BLOOD COUNT 5.9 10^3/uL (4.3-11.0)
[2019-01-20] MEDS ORDERED: METO-387 PO (10:33)
[2019-01-20] MEDS ORDERED: ASPI-983 PO (10:33)
[2019-01-20] MEDS ORDERED: ATOR40TA PO (10:33)
[2019-01-20] MEDS ORDERED: OMG1KC PO (10:33)
[2019-01-20] MEDS ORDERED: MULT1TAB69 PO (10:33)
[2019-01-20 10:46] LABS: PROTHROMBIN TIME PATIENT 13.3 SEC (12.2-14.7)
[2019-01-20 10:53] LABS: ALBUMIN 4.2 GM/DL (3.2-4.5); BILIRUBIN,TOTAL 1.9 MG/DL (0.1-1.0); CALCIUM 9.2 MG/DL (8.5-10.1); CREATININE SERUM 1.18 MG/DL (0.60-1.30); POTASSIUM 4.3 MMOL/L (3.6-5.0); TOTAL PROTEIN 6.9 GM/DL (6.4-8.2)
[2019-01-20] MEDS ORDERED: MIDAZOLAM 5 MG/5 ML (VERSED) VIAL ONE (13:24)
[2019-01-20] MEDS ORDERED: fentaNYL INJECTION 100 MCG/2 ML AMP ONE (13:24)
--- NOTE | 2019-01-20 14:53 | Cardiac Procedure Note-CS/ASA ---
Pre-Procedure Note Pre-Op Procedure Note H&P Reviewed The H&P was reviewed, patient examined and no changes noted. Date H&P Reviewed: Jan 20, 2019 Time H&P Reviewed: 14:00 Conscious Sedation Pre-Proced Time 14:00 ASA Score 3 For ASA 3 and 4: Consider anesthesia and medical clearance. Also, for patients with a history of failed moderate sedation consider anesthesia. Airway Lungs Heart ASA score ASA 1: a normal healthy patient ASA 2: a patient with a mild systemic disease (mid diabetes, controlled hypertension, obesity ASA 3: a patient with a severe systemic disease that limits activity (angina , COPD, prior Myocardial infarction) ASA 4: a patient with an incapacitating disease that is a constant threat to life (CHF, renal failure) ASA 5: a moribund patient not expected to survive 24 hrs. (ruptured aneurysm) ASA 6: a declared brain- patient whose organs are being harvested. For emergent operations, add the letter E after the classification Mallampati Classification Grade 2 Sedation Plan Analgesia, Amnesia, Plan communicated to team members, Discussed options with patient/fam, Discussed risks with patient/fam The patient is an appropriate candidate to undergo the planned procedure, sedation, and anesthesia. The patient immediately re-assessed prior to indication. KEVIN DO MD FACP FAC CCDS Jan 20, 2019 14:53
[2019-01-20] MEDS ORDERED: ASPI-999 PO (14:59)
[2019-01-20] MEDS ORDERED: PATIENT MAY USE OWN MEDS, ALL PO SCH (15:00)
--- NOTE | 2019-01-20 15:00 | Discharge Inst-Cardiology ---
Discharge Inst-Cardiac Discharge Medications New Medications: Aspirin (Aspirin) 81 Mg Tab.chew 81 MG PO DAILY, #90 TAB 3 Refills Continued Medications: Atorvastatin Calcium (Lipitor) 40 Mg Tablet 40 MG PO HS, TAB Metoprolol Succinate (Metoprolol Succinate) 25 Mg Tab.er.24h 25 MG PO DAILY, TAB Multivitamin (Multivitamins) 1 Each Tablet 1 TAB PO HS, TAB Connelly 3 Polyunsat Fatty Acids (Fish Oil 1,000 mg Capsule) 1,000 Mg Cap 1000 MG PO BID, CAP Discontinued Medications: Aspirin (Aspirin EC) 81 Mg Tablet.dr 81 MG PO DAILY, TAB Orders-Post D/C & Referrals Pneu Vac Indicated: Yes KEVIN DO MD FACP FAC CCDS Jan 20, 2019 15:00
--- NOTE | 2019-01-20 15:00 | Discharge Inst-Post CATH ---
Discharge Inst-CATH/EP Post Cardiac Cath/EP D/C Inst Follow Up/Plan F/u with Dr Teran in 2 weeks CARDIAC CATH DISCHARGE INSTRUCTIONS *Hold Metformin for 48 hours post heart cath. ACTIVITY * Go Home directly and rest. * Limit activity of the leg (or wrist if it was used) for 7 days including aerobics, swimming, jogging, bicycling, etc. * Restrict stair-climbing for 7 days if possible, if not, climb up with your non -cath leg, then bring together on the same step. * Avoid lifting, pushing, pulling or excessive movement of the affected extremity for 7 days. * Customary sexual activity may be resumed after 2 days-use caution not to use a position that strains or causes pain to the affected extremity. * No driving for 24 hours. * NO SMOKING. * Avoid straining for bowel movements for 7 days. * Gentle walking on level ground is allowed. * Returning to work will depend on the type of procedure and the results. Your doctor will discuss this with you. CALL YOUR DOCTOR FOR ANY OF THE FOLLOWING: *If bleeding from the puncture site occurs- Apply gentle pressure to site with clean cloth and call your doctor or EMS. * If a knot or lump forms under the skin, increases in size, or causes pain. * If bruising appears to be worsening or moving further down your leg instead of disappearing. * Temperature above 101 F. CARE OF YOUR GROIN INCISION; * Bruising or purple discoloration of the skin near the puncture site is common. * You may shower only, no bathtub bathing for 5 days. Be careful to avoid slipping as your leg may feel stiff. * If a closure device was used on your femoral artery, please see the attached guide regarding care of the device and your leg. * Leave the dressing on, until removed by office staff. CARE OF YOUR WRIST INCISION; * Bruising or purple discoloration of the skin near the puncture site is common. * You may shower. * DO NOT submerge wrist. * Leave dressing on, until removed by office staff.. KEVIN TERAN MD [facility] Jan 20, 2019 15:00
--- NOTE | 2019-01-20 20:11 | CARDIAC CATHETERIZATION ---
DATE OF SERVICE: 01/20/2019 CARDIAC CATHETERIZATION REPORT The patient is a 73-year-old gentleman with a known history of coronary artery disease, who had coronary artery bypass surgery consisting of left internal mammary artery graft to left anterior descending, a saphenous vein graft to the diagonal, and saphenous vein graft to posterior descending. He had a myocardial perfusion study done recently, which indicated inferior ischemia. Cardiac catheterization was carried out after having obtained informed consent. PROCEDURE IN DETAIL: He was brought to the cardiac catheterization laboratory in a fasting state. Right groin was prepared and draped in the usual sterile fashion. Lidocaine 1% was used for local anesthesia. Modified Seldinger technique was used to advance a 5-[place]enezuel[place] sheath in the right femoral artery. A 5-[place] JL4 catheter was used for left coronary angiography. A 5-[place] JR4 catheter was used for right coronary angiography. A 5-[place]enezuelan pigtail catheter was used for left heart catheterization, left ventricular angiography and for angiography of the aortic root. A 5-[place] BHUMIKA catheter was used for angiography of the left internal mammary artery graft to the left anterior descending artery. CORONARY ANGIOGRAPHY: Coronary calcification is seen in all coronary vessels. Left main coronary artery does not exhibit significant disease. Left anterior descending artery has 90% mid vessel stenosis. Left circumflex artery has mild plaques. Right coronary artery is occluded in its proximal portion. SAPHENOUS VEIN GRAFT ANGIOGRAPHY: There are two aortocoronary grafts. One is to a diagonal branch and this is widely patent and does not exhibit significant disease. The saphenous vein graft is to the right coronary artery and is attached to the posterior descending branch of the right coronary artery and the distal right coronary artery is of a very small caliber. The graft does not exhibit significant disease. LEFT INTERNAL MAMMARY ARTERY GRAFT ANGIOGRAPHY: Left internal mammary artery graft to the mid left anterior descending artery is widely patent and does not exhibit significant disease. LEFT VENTRICULAR ANGIOGRAPHY: Left ventricular angiography was carried out in the right anterior oblique projection. There is posterobasal hypokinesis. Left ventricular ejection fraction is approximately 50%. There does not appear to be significant mitral regurgitation. AORTIC ROOT ANGIOGRAPHY: Aortic root angiography was performed because we were not able to selectively engage the saphenous vein graft to the right coronary artery. Aortic root angiography does indicate it in all its extent. There is mild plaque in the proximal/ostial portion of the graft, but the graft is intact and does not exhibit significant obstructive disease. HEMODYNAMICS: Left ventricular end-diastolic pressure following coronary angiography was 4 mmHg. There was no significant pressure gradient on pullback across the aortic valve. Ascending aortic pressure was 97/47 with a mean of 66 mmHg. CONCLUSIONS: 1. [place] coronary artery disease consisting of 90% mid vessel stenosis of the left anterior descending and proximal occlusion of the right coronary. 2. Patent left internal mammary artery graft to left anterior descending artery. 3. Patent saphenous vein graft to a diagonal branch. 4. Patent saphenous vein graft to a small caliber distal right coronary artery. 5. Localized posterobasal hypokinesis. 6. Left ventricular ejection fraction approximately 50%. 7. Left ventricular end-diastolic pressure is low normal. DISCUSSION AND RECOMMENDATIONS: Based on results of the study, it appears appropriate to continue a conservative approach. Risk factor modification has been advised. Outpatient followup is advised. Job ID: [id number] DocumentID: [id number] Dictated Date: 01/20/2019 14:36:05 Tapper Bit Date: 01/20/2019 20:10:28 Dictated By: KEVIN DO MD, MA, FACP, FACC,
== END 2019-01-20 17:45 | disposition home or self-care (01) ==
LOC: CATH 09:47 → SDC 14:55 → CATH 17:45
PROVIDERS: ATTEND Internal Medicine Cardiovascular Disease
DX: I25.10 Atherosclerotic heart disease of native coronary artery without angina pectoris (principal); I10 Essential (primary) hypertension; E78.1 Pure hyperglyceridemia; I71.4 Abdominal aortic aneurysm, without rupture; I08.1 Rheumatic disorders of both mitral and tricuspid valves; I65.23 Occlusion and stenosis of bilateral carotid arteries; Z87.891 Personal history of nicotine dependence; Z95.1 Presence of aortocoronary bypass graft; Z79.82 Long term (current) use of aspirin; Z79.899 Other long term (current) drug therapy
CPT/HCPCS: 36415; 80053; 80061; 85027; 85610; 85730; 87081; 93459

== ENCOUNTER → 2019-09-29 | Outpatient (CLI) | payer MEDICARE, OTHER ==
[~2019-09-29] MED LIST changes: +ASPI-983 PO; +ASPI-999 PO; +ATOR40TA PO; +CATHETER FLUSH 10 ML SYR IV PRN; +HOLD METFORMIN - RECEIVED CONTRAST 20 ML VIAL IV SCH; +IOHEXOL 350 MG/ML 100 ML (OMNIPAQUE 350) VIAL IV ONE; +METO-387 PO; +MULT1TAB69 PO; +NS 100 ML (IVPB) BAG IV ONE; +OMG1KC PO
--- NOTE | 2019-09-29 13:03 | Diagnostic Imaging Report ---
PROCEDURE: CT angiography of the abdomen with and without contrast. TECHNIQUE: Multiple contiguous axial images were obtained through the abdomen and pelvis after administration of intravenous contrast. 3D MIP reconstructions were made. Auto Exposure Controls were utilized during the CT exam to meet ALARA standards for radiation dose reduction. INDICATION: Abdominal aortic aneurysm with aortic stent graft. COMPARISON: Correlation is made with prior CT from 09/27/2018. FINDINGS: The lung bases are clear. The liver and gallbladder are unremarkable apart from tiny stones within the dependent portion of the gallbladder. No biliary ductal dilatation is seen. The pancreas and spleen are unremarkable. No adrenal mass is detected. No definite renal calculi or hydronephrosis is seen. Infrarenal abdominal aortic aneurysm treated with aortic stent graft is again seen. Aneurysm sac dimensions are 3.7 cm AP x 2.4 cm transverse compared with 4.0 cm AP x 2.9 cm transverse on prior exam. There is no evidence of endoleak. Both limbs of the stent appear to be patent. No perianeurysmal fluid collection is identified. Small and large bowel loops are normal in caliber. Appendix is unremarkable. There is no ascites. IMPRESSION: 1. Infrarenal abdominal aortic aneurysm treated with an endograft. Aneurysm sac dimensions continue to decrease since prior study one year earlier. No endoleak is detected. 2. Cholelithiasis. Dictated by: Dictated on workstation # [id number]
== END ==
LOC: RAD 10:57
PROVIDERS: ATTEND Nurse Practitioner
DX: I71.4 Abdominal aortic aneurysm, without rupture (principal); K80.20 Calculus of gallbladder without cholecystitis without obstruction; Z95.828 Presence of other vascular implants and grafts
CPT/HCPCS: 74175

== ENCOUNTER → 2020-03-21 | Outpatient (CLI) | payer MEDICARE, OTHER ==
[~2020-03-21] MED LIST changes: -CATHETER FLUSH 10 ML SYR IV PRN; -METO-387 PO
[2020-03-21 07:21] LABS: BUN/CREATININE RATIO 14; GFR ESTIMATED > 60
--- NOTE | 2020-03-21 09:15 | Diagnostic Imaging Report ---
PROCEDURE: CT angiography of the abdomen with and without contrast. TECHNIQUE: Multiple contiguous axial images were obtained through the abdomen and pelvis after administration of intravenous contrast. 3D MIP reconstructions were made. Auto Exposure Controls were utilized during the CT exam to meet ALARA standards for radiation dose reduction. INDICATION: Abdominal aortic aneurysm and endovascular repair compared with CT angiogram 09/29/2019. FINDINGS: Infrarenal abdominal aortic aneurysmal sac today measures maximal 3.2 x 3.0 cm, previously 3.2 x 3.1 cm, not substantially changed. No evidence for endoleak. 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 No findings of end organ ischemia, the celiac and superior mesenteric arteries as well as the primary branches are patent. No intra or retroperitoneal hemorrhage. No evidence for bowel, biliary or urinary tract obstruction. Cholelithiasis noted upper limits, spleen size stable. The adrenals negative. The pancreas negative. Kidneys are unobstructed. IMPRESSION: 1. Patent stent graft device, stable aneurysmal sac, no evidence for endoleak or rupture, no adverse development. 2. Cholelithiasis and borderline splenomegaly unchanged. Dictated by: Dictated on workstation # [id number]
== END ==
LOC: RAD 06:47
PROVIDERS: ATTEND Nurse Practitioner
DX: I71.4 Abdominal aortic aneurysm, without rupture (principal); Z95.828 Presence of other vascular implants and grafts; K80.20 Calculus of gallbladder without cholecystitis without obstruction; R16.1 Splenomegaly, not elsewhere classified
CPT/HCPCS: 36415; 74175; 82565; 84520

== ENCOUNTER → 2020-06-09 | Outpatient (CLI) | payer MEDICARE, OTHER ==
[~2020-06-09] MED LIST changes: -HOLD METFORMIN - RECEIVED CONTRAST 20 ML VIAL IV SCH; -IOHEXOL 350 MG/ML 100 ML (OMNIPAQUE 350) VIAL IV ONE; +MULT-567 PO; -MULT1TAB69 PO; -NS 100 ML (IVPB) BAG IV ONE
--- NOTE | 2020-06-09 10:30 | Diagnostic Imaging Report ---
PROCEDURE: CT abdomen and pelvis without contrast. TECHNIQUE: Multiple contiguous axial images were obtained through the abdomen and pelvis without the use of intravenous contrast. Auto Exposure Controls were utilized during the CT exam to meet ALARA standards for radiation dose reduction. INDICATION: Microhematuria. History of prostate cancer As noted on the previous CTA abdomen exam of 03/21/2020. There is an aortic stent graft in place. The graft seems to be similar in position to the prior exam. The [place] aneurysm of the aorta is unchanged. However the patency of the graft cannot be assessed as intravenous contrast was not utilized. Also seen on the prior exam there is cholelithiasis without evidence for acute cholecystitis. The liver, pancreas, adrenals and inferior vena cava are unremarkable for an acute abnormality. The spleen remains borderline enlarged. The stomach is not well-distended and difficult to assess. There is no evidence for a nephrolithiasis or a urolithiasis and the kidneys are nonobstructed. There is no sign of a solid renal mass either. The appendix is not abnormally thickened and there is no sign of acute appendicitis. There is diverticulosis of the sigmoid colon but there is no evidence for an acute diverticulitis. The urinary bladder is grossly unremarkable. The prostate gland is not well-visualized. The bone windows show no sign of a fracture or of a destructive lesion. The lung bases are clear. IMPRESSION: 1. There is no acute abnormality of the abdomen or pelvis identified. 2. There is no evidence for nephrolithiasis or urolithiasis and the kidneys do not appear to be obstructed. The urinary bladder is grossly unremarkable. 3. The aortic stent graft seen previously remains in good position. The patency of the graft however cannot be established due to the absence of intravenous contrast. 4. There is cholelithiasis without evidence for acute cholecystitis. Dictated by: Dictated on workstation # [id number]
== END ==
LOC: RAD 08:45
PROVIDERS: ATTEND Urology
DX: R31.29 Other microscopic hematuria (principal); K80.20 Calculus of gallbladder without cholecystitis without obstruction; Z85.46 Personal history of malignant neoplasm of prostate
CPT/HCPCS: 74176

== ENCOUNTER → 2021-03-17 | Outpatient (CLI) | payer MEDICARE, OTHER ==
[~2021-03-17] MED LIST changes: +ASPI-1238 PO; -ASPI-983 PO; +GADOBUTROL 10 MMOL/10 ML (GADAVIST) VIAL IV ONE
--- NOTE | 2021-03-17 08:38 | Diagnostic Imaging Report ---
INDICATION: Pre-MRI screening. TIME OF EXAM: 7:51 AM 2 views of the orbits were obtained. No radiopaque orbital foreign body is detected. IMPRESSION: No radiopaque orbital foreign body is identified. Dictated by: Dictated on workstation # [id number]
--- NOTE | 2021-03-17 09:14 | Diagnostic Imaging Report ---
PROCEDURE: MR imaging of the brain with and without contrast. TECHNIQUE: Multiplanar, multisequence MR imaging of the brain was performed with and without contrast. INDICATION: Memory problems. Mild dementia. COMPARISON: none Findings: No acute ischemia, mass, or hemorrhage. No abnormal enhancement. Scattered chronic microvascular disease is seen in the periventricular and subcortical white matter. The ventricles and cortical sulci are prominent. The basilar cisterns are symmetric and unremarkable. The sellar and suprasellar regions have a normal appearance. The brainstem and posterior fossa are unremarkable. Mild mucosal thickening is seen in the bilateral maxillary and ethmoid sinuses. The mastoid air cells demonstrate normal signal characteristics. The globes and orbits are symmetric and unremarkable. The scalp and calvarium have a normal appearance. Impression: 1. No acute ischemia, mass, or hemorrhage. No abnormal enhancement. 2. Mild parenchymal volume loss with scattered chronic microvascular disease. 3. Mild mucosal thickening in the bilateral maxillary and ethmoid sinuses. Dictated by: Dictated on workstation # [id number]
== END ==
LOC: RAD 07:16
PROVIDERS: ATTEND Family Medicine
DX: Z13.89 Encounter for screening for other disorder (principal); I67.9 Cerebrovascular disease, unspecified; J34.89 Other specified disorders of nose and nasal sinuses; F03.90 Unspecified dementia, unspecified severity, without behavioral disturbance, psychotic disturbance, mood disturbance, and anxiety
CPT/HCPCS: 70553

== ENCOUNTER → 2021-03-24 | Outpatient (CLI) | payer MEDICARE, OTHER ==
[~2021-03-24] MED LIST changes: +CATHETER FLUSH 10 ML SYR IV PRN; -GADOBUTROL 10 MMOL/10 ML (GADAVIST) VIAL IV ONE; +HOLD METFORMIN - RECEIVED CONTRAST 20 ML VIAL IV SCH; +IOHEXOL 350 MG/ML 100 ML (OMNIPAQUE 350) VIAL IV ONE; +NS 100 ML (IVPB) BAG IV ONE
[2021-03-24 09:51] LABS: CREATININE SERUM 1.17 MG/DL (0.60-1.30); GFR ESTIMATED > 60
--- NOTE | 2021-03-24 10:42 | Diagnostic Imaging Report ---
PROCEDURE: CT angiography of the abdomen with and without contrast. TECHNIQUE: Multiple contiguous axial images were obtained through the abdomen and pelvis after administration of intravenous contrast. 3D MIP reconstructions were made. Auto Exposure Controls were utilized during the CT exam to meet ALARA standards for radiation dose reduction. INDICATION: Post prostatectomy COMPARISON: 06/09/2020 FINDINGS: Supra and infrarenal stent and graft device appeared in stable alignment. Device patency confirmed. There is no evidence for endoleak. No aneurysmal rupture. The infrarenal abdominal aortic aneurysmal sac measures a maximal transverse diameter of 3.1 cm, unchanged. Distended patent ectatic iliac arteries unruptured and unchanged. The left 2.5, the right 2.3 cm. The celiac and the superior mesenteric arteries as well as their primary branches remain widely patent. BHUMIKA therapeutically occluded at its origin. No findings of end organ ischemia. The appendix is normal. There is partially visualized sigmoid diverticulosis without visualized diverticulitis. There are gallstones without findings of acute cholecystitis. The spleen, adrenals, pancreas and liver parenchyma unremarkable. IMPRESSION: Stable patent stent graft device. Stable aneurysmal sac caliber. No rupture or endoleak. No end organ ischemia. No adverse change. Cholelithiasis noted. Dictated by: Dictated on workstation # [id number]
== END ==
LOC: RAD 09:09
PROVIDERS: ATTEND Nurse Practitioner
DX: I71.4 Abdominal aortic aneurysm, without rupture (principal); Z95.828 Presence of other vascular implants and grafts
CPT/HCPCS: 36415; 74175; 82565

== ENCOUNTER 2021-09-20 05:35 | Outpatient (CLI) | payer MEDICARE, OTHER ==
[~2021-09-20] VITALS: Ht 177.8 cm; Wt 86.6 kg
[~2021-09-20 05:35] MED LIST changes: -CATHETER FLUSH 10 ML SYR IV PRN; -HOLD METFORMIN - RECEIVED CONTRAST 20 ML VIAL IV SCH; -IOHEXOL 350 MG/ML 100 ML (OMNIPAQUE 350) VIAL IV ONE; -NS 100 ML (IVPB) BAG IV ONE
[2021-09-20] MEDS ORDERED: DONE5TAB30 PO (12:51)
[2021-09-20] MEDS ORDERED: MEMA10TA57 PO (12:51)
== END 2021-09-20 15:10 | disposition home or self-care (01) ==
LOC: PREOP 05:35
PROVIDERS: ATTEND Surgery
DX: Z01.818 Encounter for other preprocedural examination (principal)

== ENCOUNTER → 2021-09-27 | Day surgery (SDC) | payer MEDICARE, OTHER ==
[~2021-09-27] VITALS: Ht 177.8 cm; Wt 86.6 kg
[~2021-09-27] MED LIST changes: +DONE5TAB30 PO; +LACTATED RINGERS 1,000 ML IV ONE; +LACTATED RINGERS 1,000 ML IV STA; +LIDOCAINE JELLY 2% 6 ML SYRINGE MM PRN; +MEMA10TA57 PO; +ONDANSETRON 4 MG (ZOFRAN) ORAL DISSOLVE TAB PO PRN; +ONDANSETRON 4 MG/2 ML (SDV) Z0FRAN IVP PRN; +proPOfol 200 MG/20 ML (DIPRIVAN) VIAL IV ONE
--- NOTE | 2021-09-27 10:42 | Progress Note-Pre Operative ---
Pre-Operative Progress Note H&P Reviewed The H&P was reviewed, patient examined and no changes noted. Date Seen by Provider: Sep 27, 2021 Time Seen by Provider: 10:40 Date H&P Reviewed: Sep 27, 2021 Time H&P Reviewed: 10:40 Pre-Operative Diagnosis: screening/family hx CHARU SWENSON MD Sep 27, 2021 10:42
--- NOTE | 2021-09-27 10:43 | Discharge Inst-Surgical ---
D/C Lap Instructions-LEELA Follow Up Activity as tolerated High Fiber Diet 25g or more per day Avoid Alcohol, Caffeine, Spicy [place] and Acid foods. Drink 64 fluid oz or more of fluids per day. Symptoms to Report: Fever over 101 degree F, Nausea/Vomiting If any problems/questions: Contact your physician or go to Emergency Room CHARU SWENSON MD Sep 27, 2021 10:43
[2021-09-27 10:46] VITALS: BP 145/80
[2021-09-27 13:05] VITALS: BP 131/56
--- NOTE | 2021-09-27 13:12 | Progress Note-Post Operative ---
Post-Operative Progess Note Surgeon (s)/Building Maintenance Superintendent (s) Surgeon CHARU SWENSON MD Building Maintenance Superintendent: none Pre-Operative Diagnosis screening/family hx Post-Operative Diagnosis mild chronic stage2 ext and int hemorrhoids, moderate sigmoid diverticulosis. Procedure & Operative Findings Date of Procedure 09/27/21 Procedure Performed/Findings colonoscopy Anesthesia Type mac Estimated Blood Loss Estimated blood loss (mL): minimal Specimens/Packing Specimens Removed none CHARU SWENSON MD Sep 27, 2021 13:12
[2021-09-27 13:15] VITALS: BP 126/62
[2021-09-27 13:25] VITALS: BP 110/62
--- NOTE | 2021-09-27 23:58 | OPERATIVE REPORT ---
DATE OF SERVICE: 09/27/2021 ATTENDING PRIMARY CARE PHYSICIAN: Ewa Melchor MD. PREOPERATIVE DIAGNOSIS: Screening colonoscopy with family history of colon cancer. POSTOPERATIVE DIAGNOSES: Mild chronic stage II external and internal hemorrhoids and moderate sigmoid diverticulosis. PROCEDURE PERFORMED: Colonoscopy. SURGEON: Charu Swenson MD. ANESTHESIA: Monitored anesthesia care. ESTIMATED BLOOD LOSS: Minimal. FINDINGS: Mild chronic stage II external and internal hemorrhoids and moderate sigmoid diverticulosis. DISPOSITION: The patient tolerated the procedure well. INDICATIONS FOR PROCEDURE: The patient is a 76-year-old male known to us. We had done a previous colonoscopy on him before for a family history of colon cancer. He reports that his father was diagnosed with the disease. He states that he has had some issues with constipation in the past. He does not report any red blood per rectum nor any dark tarry stools as well as no recent inadvertent weight loss. DESCRIPTION OF PROCEDURE: The patient was brought to the endoscopy suite and laid in a left lateral decubitus position. After adequate IV pain and sedative medications and monitored anesthesia care, a digital rectal examination was performed. Mild chronic stage II external and internal hemorrhoids were identified, which were not actively edematous nor inflamed and no bleeding. Normal sphincter tone was felt and there were no palpable masses. Prostate gland was palpable and appeared normal. The endoscope was then intubated and anus and rectum gently insufflated. The endoscope was then advanced through the valves of [place] of the rectum with no polyps or any neoplasms identified. The endoscope was then advanced into the sigmoid colon where a moderate sigmoid diverticulosis identified. The endoscope was then advanced in the remainder of the descending, transverse, ascending colon, and cecum, which were normal. There were no polyps or any neoplasms identified. The endoscope was then slowly withdrawn while taking a second look and suctioning of residual air with no additional findings. The patient tolerated the procedure well. We will recommend the necessary lifestyle and diet accommodation including the incorporation of a fiber supplement, which should equal or exceed 30 grams daily as well as significant amounts of water to promote soft stools on a daily basis. If he is asymptomatic, we will have him proceed with a followup colonoscopy approximately five years due to his first-degree family history of colon cancer. Job ID: [id number] DocumentID: [id number] Dictated Date: 09/27/2021 13:08:15 Tax Representative Date: 09/27/2021 18:25:30 Dictated By: CHARU SWENSON MD
--- NOTE | 2021-09-28 09:31 | Anesthesia-General Post-Op ---
MAC Patient Condition Mental Status/LOC: Same as Preop Cardiovascular: Satisfactory Nausea/Vomiting: Absent Respiratory: Satisfactory Pain: Controlled Complications: Absent Post Op Complications Complications None Follow Up Care/Instructions Patient Instructions None needed. Anesthesiology Discharge Order Discharge Order Patient is doing well, no complaints, stable vital signs, no apparent adverse anesthesia problems. No complications reported per nursing. ERUM ZAMUDIO CRNA Sep 28, 2021 09:31
== END ==
LOC: ENDO 10:25
PROVIDERS: ATTEND Surgery
DX: Z12.31 Encounter for screening mammogram for malignant neoplasm of breast (principal); K64.1 Second degree hemorrhoids; K57.30 Diverticulosis of large intestine without perforation or abscess without bleeding; I10 Essential (primary) hypertension; I25.10 Atherosclerotic heart disease of native coronary artery without angina pectoris; E78.1 Pure hyperglyceridemia; Z90.79 Acquired absence of other genital organ(s); Z80.0 Family history of malignant neoplasm of digestive organs; Z79.899 Other long term (current) drug therapy; Z79.82 Long term (current) use of aspirin; Z87.891 Personal history of nicotine dependence; Z86.010 Personal history of colon polyps; Z85.46 Personal history of malignant neoplasm of prostate
CPT/HCPCS: G0105

== ENCOUNTER → 2022-04-10 | Outpatient (CLI) | payer MEDICARE, OTHER ==
[~2022-04-10] MED LIST changes: -LACTATED RINGERS 1,000 ML IV ONE; -LACTATED RINGERS 1,000 ML IV STA; -LIDOCAINE JELLY 2% 6 ML SYRINGE MM PRN; -ONDANSETRON 4 MG (ZOFRAN) ORAL DISSOLVE TAB PO PRN; -ONDANSETRON 4 MG/2 ML (SDV) Z0FRAN IVP PRN; -proPOfol 200 MG/20 ML (DIPRIVAN) VIAL IV ONE
--- NOTE | 2022-04-10 11:04 | Diagnostic Imaging Report ---
CLINICAL INDICATION: Patient was cutting grass, went over a rough area and now has left hip and low back pain. EXAM: MRI of the lumbar spine without contrast. Sequences include sagittal T2, sagittal T1, sagittal T2 fat-sat, and axial T2. COMPARISON: None. FINDINGS: There is no acute fracture or dislocation. There is an intraosseous hemangioma within the T12 vertebra and L5 vertebra. There are hypertrophic spurs involving the lumbar spine. The visualized portions of the distal thoracic spinal cord, conus medullaris, and cauda equina nerve roots are unremarkable. The conus medullaris tip is seen at the lower L2 vertebral body level. There is no significant paraspinal soft tissue abnormality. There is aneurysmal dilation of the right and left common iliac arteries which measure 2.1 cm and 2.6 cm in AP dimension. T12-L1: There is a 5 mm perineural cyst involving the right neural foraminal region. There is no significant central spinal canal or neural foramen narrowing. L1-L2: There is no significant central spinal canal or neural foramen narrowing. L2-L3: There is a mild diffuse disc bulge. There is a small annular tear involving the anterior aspect of the disc. There is no significant central canal stenosis. There is no significant right neural foramen narrowing. There is mild left neural foramen narrowing. L3-L4: There is a diffuse disc bulge with superimposed disc herniation in the right neural foraminal region. There is [id number]-hkeksvge bilateral facet arthropathy. There is a degenerative facet effusion on the right. There is minimal central canal narrowing. There is severe right neural foramen narrowing due to the right foraminal disc herniation. There is no significant left neural foramen narrowing. L4-L5: There is tnmg-gh-kudflani bilateral facet arthropathy. There is a mild diffuse disc bulge. There is no significant central canal stenosis. There is moderate bilateral neural foramen narrowing. L5-S1: There is severe bilateral facet arthropathy/hypertrophy. There are degenerative facet effusions. There is small articular facet involving the posterior aspect of the left L5-S1 facet region. There is no significant central canal stenosis. There is no significant central canal or neural foramen narrowing. IMPRESSION: 1: There is no acute lumbar spine fracture or dislocation. 2: There is multilevel lumbar spine degenerative disease. 3: There is an L3-L4 diffuse disc bulge with disc herniation extending into the right foraminal region causing severe right neural foramen narrowing. 4: Remainder of the lumbar spine as described above. 5: Bilateral common iliac artery aneurysms. Dictated by: Dictated on workstation # [id number]
--- NOTE | 2022-04-10 12:54 | Diagnostic Imaging Report ---
EXAMINATION: Magnetic resonance imaging of the pelvis and left hip without contrast DATE: April 10, 2022. COMPARISON: None. INDICATION: 76-year-old male, left hip and low back pain. TECHNIQUE: Magnetic Resonance Imaging sequences were performed of the pelvis and left hip without contrast. TENDONS AND MUSCLES: The gluteus naresh muscles and their origins and insertions are intact bilaterally. The tendons and muscles of the greater trochanter - gluteus minimus, piriformis and gluteus medius - are intact bilaterally. Both common hamstring attachments on the ischial tuberosities are intact and the extensor muscles of the thigh are intact. The visualized portions of the flexors and adductor muscles of the thigh and their attachments on the pelvis and hips are intact. Both iliopsoas and iliacus muscles are intact. The bilateral iliopsoas tendons are intact. HIPS AND SACROILIAC JOINTS: The contours of the femoral heads and acetabuli are smooth and symmetric. There is no identified fluid-filled labral tear or paralabral cyst. There are subchondral cystic change in the central aspect of the left acetabulum. There is overlying approximately 25% cartilage loss of the acetabulum. There is no left hip joint effusion. There is question of a small right hip superior labral tear without sizable paralabral cyst. There is no pronounced joint space loss of the right hip. There is no right hip joint effusion. The sacroiliac joints are unremarkable. LUMBAR SPINE: The visible portions of the lumbar spine are unremarkable on limited assessment. BONE: The bones all have normal configuration. The bone marrow signal is within normal limits. Specifically, negative for fracture, osteomyelitis, osteonecrosis, or marrow replacing process. BURSAE AND SOFT TISSUES: The bursae and soft tissues surrounding the pelvis and hips are within normal limits. IMPRESSION: 1. Mild osteoarthritis of both hips with probable small right hip superior labral tear. No hip joint effusion. 2. Intact muscles and tendons. 3. No acute fracture, bone contusion, or evidence of osteonecrosis. Dictated by: Dictated on workstation # [id number]
== END ==
LOC: RAD 08:00
PROVIDERS: ATTEND Nurse Practitioner Family
DX: M48.061 Spinal stenosis, lumbar region without neurogenic claudication (principal); M51.26 Other intervertebral disc displacement, lumbar region; I72.3 Aneurysm of iliac artery; M47.817 Spondylosis without myelopathy or radiculopathy, lumbosacral region; M16.0 Bilateral primary osteoarthritis of hip
CPT/HCPCS: 72148; 73721

== ENCOUNTER → 2022-04-27 | Outpatient (CLI) | payer MEDICARE, OTHER ==
[~2022-04-27] MED LIST changes: +REGADENOSON 0.4 MG/5 ML SYR (LEXISCAN) IV ONE
[2022-04-27] MEDS: CATHETER FLUSH 10 ML SYR IVP PRN ×2 (07:33→09:13)
[2022-04-27 09:12] VITALS: BP 133/68
--- NOTE | 2022-05-02 14:41 | STRESS TEST ---
DATE OF SERVICE: 04/27/2022 RESTING AND POST REGADENOSON TECHNETIUM-99M TETROFOSMIN SPECT CT IMAGING ORDERING PHYSICIAN: Marline Dunbar APRN PRIMARY PHYSICIAN: Dr. Melchor. CLINICAL DIAGNOSIS: Coronary artery disease. Baseline images were carried out after injection of 9.84 mCi of technetium-99m Tetrofosmin. This was followed by 0.4 mg regadenoson and 29.4 mCi of technetium-99m Tetrofosmin for stress imaging. The electrocardiogram showed sinus bradycardia and sinus arrhythmia throughout the study. The electrocardiogram did not change significantly with regadenoson infusion. The patient tolerated the procedure well. Review of images at rest and following stress indicates somewhat diminished count uptake in the inferior wall. This is somewhat more pronounced in the stress images than at rest images. There appears to be some degree of diaphragmatic attenuation. Also, image acquisition during stress, there is considerable activity within the gut and that is the likely reason for the somewhat more pronounced diminished count uptake in the diaphragmatic wall during stress. The corrected images do not exhibit any perfusion defects. Overall, it does not appear that there is any significant ischemia. Gated images show normal global left ventricular systolic function with normal regional wall motion. Left ventricular ejection fraction is calculated to be 57%. TID is absent (1.06). CONCLUSIONS: 1. No evidence of significant myocardial ischemia or infarction on this study. 2. Normal regional wall motion. 3. Normal global left ventricular systolic function with a calculated ejection fraction of 57%. 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
== END ==
LOC: CARD 07:30
PROVIDERS: ATTEND Nurse Practitioner Family
DX: I25.10 Atherosclerotic heart disease of native coronary artery without angina pectoris (principal)
CPT/HCPCS: 78452; 93017; A9502

== ENCOUNTER → 2023-08-22 | Outpatient (CLI) | payer MEDICARE ==
[~2023-08-22] MED LIST changes: +NF-CRES10T PO; -REGADENOSON 0.4 MG/5 ML SYR (LEXISCAN) IV ONE; -ROSU10TA22 PO
--- NOTE | 2023-08-22 16:29 | Diagnostic Imaging Report ---
EXAMINATION: Abdominal aortic ultrasound. INDICATION: History of abdominal aortic aneurysm repair and endograft insertion. There are no prior ultrasound examinations available for comparison. The CTA abdomen exam of 03/24/2021 noted an aortic stent graft in place. The graft appeared to be patent, and there was no evidence for a rupture of the graft. The infrarenal abdominal aortic aneurysm sac measured 3.1 cm in maximum transverse diameter. There was also dilatation of both common iliac artery origins. The common iliac artery on the right measured 2.3 cm in maximum diameter while the common iliac artery on the left measured 2.5 cm. FINDINGS: On this exam, the aortic stent graft remains in place and the graft is patent. The proximal aorta measures 2.5 x 2.7 cm in maximum AP and transverse diameters. The mid aorta measures 2.4 x 3.4 cm while the distal abdominal aorta measures 3.3 x 3.3 cm. The origin of the common iliac artery on the right measures 2.2 x 1.9 cm while the origin of the left common iliac artery is 2.1 x 2.2 cm. There is no para-aortic fluid collection to suggest a rupture of the graft. IMPRESSION: 1. The aortic stent graft seen previously is again evident and remains in place. The graft is patent and there is good blood flow in the aorta and in both common iliac arteries. 2. The distal abdominal aorta measures 3.3 x 3.3 cm. The origin of the right common iliac artery is 2.2 x 1.9 cm while the left is estimated to be 2.1 x 2.2 cm. These measurements are similar to the prior exam. 3. There is no acute abnormality identified. Dictated by: Dictated on workstation # [id number]
== END ==
LOC: RAD 12:36
PROVIDERS: ATTEND Internal Medicine Cardiovascular Disease
DX: Z98.62 Peripheral vascular angioplasty status (principal)
CPT/HCPCS: 76775